=== PATIENT | female | born 1940 | race Caucasian/White ===

== ENCOUNTER 2017-03-19 23:34 | Observation (INO) ==
--- NOTE | 2017-03-20 00:16 | Emergency Department Note ---
Disposition Clinical Impression: Atrial fibrillation with RVR Chest pain Qualifiers: Chest pain type: unspecified Qualified Code(s): R07.9 - Chest pain, unspecified Disposition: Admitted As Inpatient Condition: Fair Time of Disposition: 03:00 Chest Pain HPI - General Chief Complaint: ED Chest Pain Stated Complaint: rt chest pain Time Seen by Provider: 03/19/17 23:41 Source: patient Limitations: no limitations Vital Signs Reviewed: Yes Nursing Notes Reviewed: Yes - History of Present Illness HPI Narrative: Patient is a 76-year-old female who presents to [facility] ED with a chief complaint of right-sided chest pain. States it started all of a sudden around 9:30 this evening while she was sitting watching TV. Denies any nausea, vomiting, diaphoresis. States it has been pretty constant since then. She does have some numbness and tingling into the right shoulder but states that is more chronic. She did take a full dose aspirin today as well as a Vicodin to see if she could help with the pain. States her heart rate has been high over 120 for the last 2 weeks. She does have a history of atrial fibrillation which she takes metoprolol 75 mg twice a day. States she was previously following with [facility] cardiology but then started seeing someone at [facility] who ended up retiring and now she is going to see someone at [facility] for her cardiology. Patient does have a history of CAD with 2 stents that were placed in 2008. Her last stress test was done in June 2015 at our facility which was negative for any acute ischemia. Pt complaint: chest pain Onset (ago): hour(s) Duration: constant Onset: during rest Pain Location: right chest Severity: moderate Severity scale (1-10): 5 Quality: aching Pain Radiation: RUE Improves with: nothing Worsens with: inspiration Associated symptoms: Denies: nausea, vomiting, diaphoresis, dyspnea, fever Treatments prior to arrival chest pain: aspirin - Related Data Home Medications Medication Instructions Recorded Confirmed Acetaminophen [Tylenol] 500 mg PO Q6HR PRN 06/19/15 03/20/17 Biotin 1,000 mcg PO QAM 06/19/15 03/20/17 Cholecalciferol (Vitamin D3) 50,000 unit PO QWEEK 06/19/15 03/20/17 [Vitamin D3] HYDROcodone/Acet 5/325 mg [[place] 0.5 tab PO Q6H PRN 06/19/15 03/20/17 5-325 mg] Levothyroxine [Synthroid] 25 mcg PO QAM 06/19/15 03/20/17 Multivitamin/Iron/Folic Acid 1 each PO QAM 06/19/15 03/20/17 [Centrum Complete Multivit Tab] Warfarin [Coumadin] 2.5 mg PO 4XW 06/19/15 03/20/17 Warfarin [Coumadin] 5 mg PO 4XW 06/19/15 03/20/17 Clopidogrel Bisulfate [Plavix] 75 mg PO DAILY 03/20/17 03/20/17 Dulcolax 1 each PO DAILY 03/20/17 03/20/17 Gas Relief 1 each PO PRN PRN 03/20/17 03/20/17 Losartan [Cozaar] 50 mg PO DAILY 03/20/17 03/20/17 Metoprolol [Lopressor] 75 mg PO BID 03/20/17 03/20/17 amLODIPine [Norvasc] 5 mg PO HS 03/20/17 03/20/17 Allergies Allergy/AdvReac Type Severity Reaction Status Date / Time Penicillins Allergy Rash Verified 06/19/15 12:32 rosuvastatin [From Crestor] Allergy See Verified 06/19/15 13:49 Comments Sulfa (Sulfonamide Allergy Rash Verified 06/19/15 12:32 Antibiotics) All systems ED: reviewed and negative except as stated. Chest Pain PMH - Past Medical History Medical history: Reports: arthritis, atrial fibrillation, coronary artery disease, CVA, hyperlipidemia, hypertension, renal disease, other Surgical history: Reports: angioplasty/stent, other Psychiatric history: Reports: no psych history - Social History Smoking Status: Never smoker Alcohol use: Reports: none Drug use: Reports: none Physical Exam - General Limitations: no limitations General appearance: alert, in no apparent distress - Head Head exam: atraumatic, normocephalic, normal inspection - Eye Eye exam: Present: normal appearance, EOMI - ENT ENT exam: normal exam, normal oropharynx, mucous membranes moist - Neck Neck exam: Present: normal inspection, full ROM, trachea midline - Chest Chest inspection: Present: normal inspection, symmetric chest wall rise - Respiratory Respiratory exam: Present: normal lung sounds bilaterally - Cardiovascular Cardiovascular exam: Present: tachycardia, irregular rhythm, normal heart sounds - Abdominal Exam Abdominal exam: Present: soft, Non-Tender. Absent: tenderness, distention, guarding, rebound, rigidity - Extremities Exam Extremities exam: Present: normal inspection, full ROM. Absent: tenderness, pedal edema - Back Exam Back exam: Present: normal inspection, full ROM. Absent: tenderness - Neurological Exam Neurological exam: Present: alert, oriented X3 - Psychiatric Psychiatric exam: Present: normal affect, normal mood - Skin Skin exam: Present: warm, dry, intact, normal color Course Course Narrative: Patient seen and examined. Right-sided chest pain, worse with deep breaths. Patient is in atrial fibrillation with RVR with a rate in the 120s. Cardiopulmonary workup initiated. - Reevaluation(s) Reevaluation #1: Patient had minimal improvement with 5 mg of metoprolol 3. Will admit for chest pain, rule out ACS as well as atrial fibrillation with RVR. I discussed with hospitalist Dr. Bledsoe who has accepted patient for admission. Time: 03:00 Vital Signs Temperature 98.1 F 03/19/17 23:42 Pulse Rate 126 03/19/17 23:42 Respiratory Rate 18 03/19/17 23:42 Blood Pressure 153/84 03/19/17 23:42 O2 Sat by Pulse Oximetry 98 03/19/17 23:42 Temperature 98.4 F 03/20/17 03:43 Pulse Rate 117 03/20/17 03:43 Respiratory Rate 18 03/20/17 03:43 Blood Pressure 137/88 03/20/17 03:43 O2 Sat by Pulse Oximetry 94 03/20/17 03:43 Oxygen Delivery Oxygen Delivery Room Air Chest Pain - Medical Records Medical records reviewed: Yes I reviewed the patient's medical records. - Lab Data Lab results reviewed: Yes I reviewed the patient's lab results. Result diagrams: 03/20/17 00:32 03/20/17 00:32 Lab Results 03/20/17 03/20/17 03/20/17 Range/Units 00:32 00:32 00:32 WBC 9.2 (4.3-11.1) K/mcL RBC 3.41 L (3.82-4.97) M/mcL Hgb 10.5 L (11.5-15.4) g/dL Hct 33.8 L (35.3-44.9) % MCV 99.1 (83.0-100.0) fL MCH 30.8 (28.0-33.3) pg MCHC 31.1 L (31.6-35.5) g/dL RDW 13.9 (11.5-14.5) % Plt Count 169 (140-400) K/mcL MPV 10.2 (9.4-12.4) fL Immature Gran % 0.5 (0-4) % Seg Neutrophils % 75.1 % Lymphocytes % 15.4 % Monocytes % 6.3 % Eosinophils % 2.4 % Basophils % 0.3 % Neutrophils # 6.9 (1.6-8.9) K/mcL Lymphocytes # 1.4 (0.6-4.6) K/mcL Monocytes # 0.6 (0.0-1.3) K/mcL Eosinophils # 0.2 (0.0-0.6) K/mcL Basophils # 0.0 (0.0-0.2) K/mcL PT 30.7 H (9.4-12.1) Seconds INR 2.8 APTT 32.3 (26.0-36.0) Seconds Sodium 139 (136-145) mEq/L Potassium 4.3 (3.5-4.5) mEq/L Chloride 105 (98-109) mEq/L Carbon Dioxide 24 (19-29) mEq/L BUN 22 H (7-20) mg/dL Creatinine 1.62 H (0.57-1.11) mg/dL Est GFR ( Amer) 37 L (> 60) Est GFR (Non-Af Amer) 31 L (> 60) BUN/Creatinine Ratio 14 (6-26) Glucose 137 H (70-99) mg/dL Calculated Osmolality 293 (280-300) Calcium 8.7 (8.6-10.8) mg/dL Magnesium 2.4 (1.6-2.6) mg/dL Troponin I (0-0.03) ng/mL TSH 4.344 (0.350-4.840) mcIU/mL 03/20/17 Range/Units 00:32 WBC (4.3-11.1) K/mcL RBC (3.82-4.97) M/mcL Hgb (11.5-15.4) g/dL Hct (35.3-44.9) % MCV (83.0-100.0) fL MCH (28.0-33.3) pg MCHC (31.6-35.5) g/dL RDW (11.5-14.5) % Plt Count (140-400) K/mcL MPV (9.4-12.4) fL Immature Gran % (0-4) % Seg Neutrophils % % Lymphocytes % % Monocytes % % Eosinophils % % Basophils % % Neutrophils # (1.6-8.9) K/mcL Lymphocytes # (0.6-4.6) K/mcL Monocytes # (0.0-1.3) K/mcL Eosinophils # (0.0-0.6) K/mcL Basophils # (0.0-0.2) K/mcL PT (9.4-12.1) Seconds INR APTT (26.0-36.0) Seconds Sodium (136-145) mEq/L Potassium (3.5-4.5) mEq/L Chloride (98-109) mEq/L Carbon Dioxide (19-29) mEq/L BUN (7-20) mg/dL Creatinine (0.57-1.11) mg/dL Est GFR ( Amer) (> 60) Est GFR (Non-Af Amer) (> 60) BUN/Creatinine Ratio (6-26) Glucose (70-99) mg/dL Calculated Osmolality (280-300) Calcium (8.6-10.8) mg/dL Magnesium (1.6-2.6) mg/dL Troponin I 0.02 (0-0.03) ng/mL TSH (0.350-4.840) mcIU/mL - Radiology Data Radiology results reviewed: Yes I reviewed the patient's radiology results. Chest X-Ray 03/19/17 23:42 IMPRESSION: Interstitial and nodular infiltrates in both lung bases. D/ / Sherman Woodruff MD / Sherman Woodruff MD Interpreting Provider: Sherman Woodruff MD - EKG Data EKG attestation: Yes I reviewed and interpreted this EKG. EKG results narrative: EKG done at 2339 shows atrial flutter with a rate of 127 beats per minute. No acute ST elevation or depression. Normal axis. Heart Score - Score History: Slightly Suspicious EKG: Non Specific repolarisation Disturbance Age: Greater than 65 Risk Factors: Equal/Greater than 3 risk factor or history of atherosclerotic disease Troponin: Less than normal limit HEART Score Total: 5
[2017-03-20 00:41] LABS: Basophils % 0.3 %; Eosinophils # 0.2 K/mcL (0.0-0.6); Eosinophils % 2.4 %; Hematocrit 33.8 % (35.3-44.9); Hemoglobin 10.5 g/dL (11.5-15.4); Immature Granulocytes % 0.5 % (0-4); Lymphocytes # 1.4 K/mcL (0.6-4.6); Lymphocytes % 15.4 %; Mean Corpuscular HGB Conc 31.1 g/dL (31.6-35.5); Mean Corpuscular Hemoglobin 30.8 pg (28.0-33.3); Mean Corpuscular Volume 99.1 fL (83.0-100.0); Mean Platelet Volume 10.2 fL (9.4-12.4); Monocytes # 0.6 K/mcL (0.0-1.3); Monocytes % 6.3 %; Neutrophils # 6.9 K/mcL (1.6-8.9); Platelet Count 169 K/mcL (140-400); Red Blood Count 3.41 M/mcL (3.82-4.97); Red Cell Distribution Width 13.9 % (11.5-14.5); Segmented Neutrophils % 75.1 %
[2017-03-20 00:46] LABS: INR 2.8; Prothrombin Time 30.7 Seconds (9.4-12.1)
[2017-03-20 00:48] LABS: Activated Partial Thrombo Time 32.3 Seconds (26.0-36.0)
[2017-03-20 00:53] LABS: Calcium 8.7 mg/dL (8.6-10.8); Potassium 4.3 mEq/L (3.5-4.5)
[2017-03-20] MEDS: *HR* Metoprolol 5 MG/5 ML VIAL IVP SCH ×3 (01:12→01:44)
[2017-03-20 01:25] LABS: Thyroid Stimulating Hormone 4.344 mcIU/mL (0.350-4.840)
--- NOTE | 2017-03-20 01:54 | Emergency Department Note ---
START Narrative - START START: I examined this patient and my medical decision-making was reviewed with the Resident Physician. I agree with the documented findings, disposition and treatment plan as described except to the extent set forth below. 76 year old female with HX of paroxsymal afib and states that she has had increased chest pain with shortness of breaht and diaphoesis and currently in atrial fibrillation with RVR. Radha has been admitted to medicine and given lpressor for ther afib thearpy, due to inability to take cardizem.
[2017-03-20 02:13] LABS: Magnesium 2.4 mg/dL (1.6-2.6)
[2017-03-20] MEDS ORDERED: Ondansetron 4 MG/2 ML VIAL IVP ONE (02:31)
[2017-03-20] MEDS ORDERED: *HR* Morphine 2 MG/ML SYRINGE IVP ONE (02:31)
[2017-03-20] MEDS ORDERED: Ondansetron 4 MG/2 ML VIAL IVP PRN (04:14)
[2017-03-20] MEDS ORDERED: Acetaminophen 325 MG TABLET PO PRN (04:14)
[2017-03-20] MEDS ORDERED: *HR* Promethazine 25 MG/ML VIAL IVP PRN (04:14)
[2017-03-20] MEDS ORDERED: Naloxone 0.4 MG/ML INJ IVP PRN (04:14)
[2017-03-20] MEDS ORDERED: *HR* Morphine 2 MG/ML SYRINGE IVP PRN (04:14)
[2017-03-20] MEDS: *HR* HYDROcodone/Acet 5/325 mg TABLET PO PRN ×3 (04:48→21:35)
--- NOTE | 2017-03-20 04:59 | Internal Med History&Physical ---
Date of Encounter: 03/20/17 Time of Encounter: 04:00 Assessment and Plan (1) Chest pain Current visit: Yes Status: Acute Will place the pt into Tele for observation Her Rt side chest pain seems to more like musculoskeletal / muscle strain However still need to r/o ACS.. will place her on hospital monitor check serial troponin..so far negative trop IV and PO analgesics PRN will get a 2 D Echo Qualifiers: Chest pain type: unspecified Qualified Code(s): R07.9 - Chest pain, unspecified (2) Atrial flutter Current visit: No Status: Acute Reviewed EKG showing tachycardia with atrial flutter waves must be triggered by pain She revcieved IV Lopressor in the ER, not much change will give her home PO Dose of Lopressor now, if no improvement will start her on Cardizem gtt also cont Coumadin for anticoagulation INR is therapeutic now will get 2 D Echo Qualifiers: Qualified Code(s): I48.3 - Typical atrial flutter (3) CAD (coronary artery disease) Current visit: No Status: Chronic Resumed all home meds Plavix, Statin and B abraham Qualifiers: Coronary Disease-Associated Artery/Lesion type: [place] artery [place] vs. transplanted heart: [place] heart Associated angina: without angina Qualified Code(s): I25.10 - Atherosclerotic heart disease of [place] coronary artery without angina pectoris (4) RSD upper limb Current visit: Yes Status: Chronic cont pain medication Qualifiers: Laterality: right Qualified Code(s): G90.511 - Complex regional pain syndrome I of right upper limb (5) HTN (hypertension) Current visit: No Status: Chronic stable with home meds Qualifiers: Hypertension type: essential hypertension Qualified Code(s): I10 - Essential (primary) hypertension (6) Hypothyroidism Current visit: No Status: Chronic resumed home med Qualifiers: Hypothyroidism type: acquired Qualified Code(s): E03.9 - Hypothyroidism, unspecified (7) Hyperlipidemia Current visit: No Status: Chronic resumed home med Qualifiers: Hyperlipidemia type: unspecified Qualified Code(s): E78.5 - Hyperlipidemia , unspecified Internal Medicine - H&P: HPI Chief complaint: Rt chest pain.. Palpitations Admitted From: Emergency Dept Plans for Post Hospital Care: Home History of present illness: Ms. Weston is a 76 year old female who presented to [facility] ED with c/o palpitations and Rt side chest pain. She stated it started all of a sudden around 9:30 last night while she was sitting watching TV. Denies any nausea, vomiting, diaphoresis. States it has been pretty constant since then. She does have some numbness and tingling into the right shoulder but states that is more chronic. She did take Vicodin which relieved her pain little bit. She also c/o of palpiations from last one week her HR in 100 t- 120' s. She used to be on Cardizem and Metoprolol for her paroxysmal A fib, apparently her straw boss from [facility] did d/c Cardizem and continued Metoprolol few months ago. Currently she takes metoprolol 75 mg twice a day. Here in the ER her EKG showing Atrial flutter and tachycardia. Patient does have a history of CAD with 2 stents that were placed in 2008. Her last stress test was done in June 2015 at our facility which was negative for any acute ischemia. Past Med Surg Social Fam HX - Past Medical History Medical history: arthritis, atrial fibrillation, coronary artery disease, CVA, hyperlipidemia, hypertension, renal disease, other Psychiatric history: no psych history - Past Surgical History Surgical History: angioplasty/stent, other - Social History Smoking Status: Never smoker Smokeless Tobacco Status: No Alcohol use: none Drug use: none - Family History Mother Living Status: Hx Family Cardiac Disorders: Yes Hx Family Respiratory Disorders: No Hx Family Cancer: No Hx Family GI Disorders: No Hx Family Endocrine Disorder: No Hx Family Neuromuscular Disorders: No Hx Family Neurologic Disorders: Yes Hx Family HEENT Disorders: No Hx Family Autoimmune Disorders: No Internal Medicine - H&P: Meds Acetaminophen [Tylenol] 500 mg PO Q6HR PRN 06/19/15 [History] Biotin 1,000 mcg PO QAM 06/19/15 [History] Cholecalciferol (Vitamin D3) [Vitamin D3] 50,000 unit PO QWEEK 06/19/15 [History ] HYDROcodone/Acet 5/325 mg [[place] 5-325 mg] 0.5 tab PO Q6H PRN 06/19/15 [History] Levothyroxine [Synthroid] 25 mcg PO QAM 06/19/15 [History] Multivitamin/Iron/Folic Acid [Centrum Complete Multivit Tab] 1 each PO QAM 06/19 [History] Warfarin [Coumadin] 2.5 mg PO 4XW 06/19/15 [History] Warfarin [Coumadin] 5 mg PO 4XW 06/19/15 [History] Clopidogrel Bisulfate [Plavix] 75 mg PO DAILY 03/20/17 [History] Dulcolax 1 each PO DAILY 03/20/17 [History] Gas Relief 1 each PO PRN PRN 03/20/17 [History] Losartan [Cozaar] 50 mg PO DAILY 03/20/17 [History] Metoprolol [Lopressor] 75 mg PO BID 03/20/17 [History] amLODIPine [Norvasc] 5 mg PO HS 03/20/17 [History] 3 Allergy/AdvReac Type Severity Reaction Status Date / Time Penicillins Allergy Rash Verified 06/19/15 12:32 rosuvastatin [From Crestor] Allergy See Verified 06/19/15 13:49 Comments Sulfa (Sulfonamide Allergy Rash Verified 06/19/15 12:32 Antibiotics) All Systems PM: A 10-system review of systems was performed and is negative for pertinent findings except as documented above in the HPI. Review of systems: All the systems are reviewed everything is benign except the systems and symptoms I mentioned in the history of present illness - Constitutional Vitals: Temp Pulse Resp BP Pulse Ox 98.4 F 117 18 137/88 94 03/20/17 03:43 03/20/17 03:43 03/20/17 03:43 03/20/17 03:43 03/20/17 03:43 General appearance: Present: mild distress (with pain), A&O X 3, answers questions appropriately - Head Head exam: Present: atraumatic, normal inspection - Respiratory Respiratory exam: Present: decreased breath sounds. Absent: chest wall tenderness, rales, respiratory distress, rhonchi, wheezes - Cardiovascular Cardiovascular exam: Present: irregular rhythm, +S1, +S2, tachycardia - GI/Abdominal GI/Abdominal exam: Present: normal bowel sounds, soft. Absent: distended, rebound, rigid, tenderness - Extremities Exam Extremities exam: Absent: calf tenderness, pedal edema, tenderness - Back Exam Back exam: Absent: CVA tenderness (L), CVA tenderness (R) - Neurological Exam Neurological exam: Present: alert, oriented X3 - Psychiatric Psychiatric exam: Present: normal affect, normal mood Internal Med - H&P Results - Labs CBC & Chem 7: 03/20/17 00:32 03/20/17 00:32
[2017-03-20] MEDS ORDERED: 0.9 % Sodium Chloride 1,000 ML IVC ONE (08:24)
[2017-03-20] MEDS: Multivit/Ca/Min/Fe/FA 1 TAB TABLET PO SCH (08:42)
[2017-03-20] MEDS: BIOTIN 1000MCG PO SCH (08:43)
--- NOTE | 2017-03-20 14:54 | Event Note ---
Date of Encounter: 03/20/17 Time of Encounter: 14:26 Neetu Weston is a 76 y/o female with PMH atrial flutter on couamdin, HTN, CAD and hypothyroidism who presented to [facility] on 03/20/2017 with complaints of chest pain. She was found to be an atrial fib with RVR, have worsening renal function and with possible new CHF. 1. CAD: per hx. presented with right-sided chest pain that radiated to back. 2015 stress test with gated EF greater than 70%, perfusion imaging negative for ischemia or infarct. Serial troponin negative, EKG with A. fib RVR. Still with intermittent right chest pain. Continue home Plavix, Coumadin, BB. Cardiology consulted 2. Atrial fib/flutter: Per history. Failed rhythm control with multaq the past. Per chart review, patient is supposed to be on diltiazem and metoprolol however only on metoprolol. Admission EKG with a flutter with rates in 120s to 130s. IV metoprolol given in ED and home BB restarted. Patient remains in A. fib with RVR with heart rates in 120s. Give Cardizem bolus and start Cardizem drip. Transfer to higher level of care. Cardiology consulted 3. Congestive heart failure: 06/2015 TTE with EF 55%, indeterminate diastolic dysfunction due to A. fib, moderately dilated left atrium. 03/20/[address] interstitial edema and trace pleural effusions compatible with CHF. Does not appear to be overtly overloaded. Not on Lasix at home. Give small dose IV Lasix as to not drop her blood pressure too low. Repeat echo, check BNP. Cardiology consulted 4. Acute on chronic kidney injury: Cr 1.6 which appears to be above baseline. Possibly cardiorenal syndrome with suspected congestive heart failure. Trial small dose IV Lasix. Holding home ARB. Received 1 L bolus; hold on further IV fluids until echo obtained. Monitor repeat CMP. Consult nephrology if needed. 5. Hypertension: per hx. BP controlled. Continue home amlodipine, BB. Holding home ARB with worsening renal function. Monitor BP closely while on Cardizem drip and with home BB. 6. Hypothyrodism: per hx. continue home levothyroxine. 7. DVT prophylaxis: couamdin 8. Lung nodules: Chest CT with known multiple subcentimeter pulmonary nodules throughout both lungs; most are unchanged from 2012 however there were at least 2 nodules increased in size on the right side. Will need continued CT surveillance in 12 months.
[2017-03-20] MEDS ORDERED: 0.9 % Sodium Chloride 500 ML IVC SCH (15:30)
[2017-03-20] MEDS ORDERED: Furosemide 20 MG/2 ML VIAL IVP ONE (16:12)
[2017-03-20] MEDS ORDERED: *HR* Warfarin 5 MG TABLET PO SCH (18:00)
[2017-03-20] MEDS ORDERED: Warfarin perPT PO PRN (18:00)
[2017-03-20] MEDS: amLODIPine 5 MG TABLET PO SCH (19:53)
[2017-03-21 04:02] LABS: Hematocrit 32.3 % (35.3-44.9); Hemoglobin 9.9 g/dL (11.5-15.4); INR 2.7; Mean Corpuscular HGB Conc 30.7 g/dL (31.6-35.5); Mean Corpuscular Hemoglobin 30.6 pg (28.0-33.3); Mean Corpuscular Volume 99.7 fL (83.0-100.0); Mean Platelet Volume 10.9 fL (9.4-12.4); Platelet Count 165 K/mcL (140-400); Prothrombin Time 29.5 Seconds (9.4-12.1); Red Blood Count 3.24 M/mcL (3.82-4.97)
[2017-03-21 04:22] LABS: Albumin 3.1 g/dL (3.5-5.0); Albumin/Globulin Ratio 0.9 (1.1-2.2); Bilirubin,Total 0.8 mg/dL (0.2-1.2); Calcium 8.1 mg/dL (8.6-10.8); Globulin 3.3 g/dL (2.4-3.5); Potassium 3.8 mEq/L (3.5-4.5); Total Protein 6.4 g/dL (6.0-8.3)
[2017-03-21] MEDS: *HR* HYDROcodone/Acet 5/325 mg TABLET PO PRN ×2 (07:03→20:08)
--- NOTE | 2017-03-21 09:05 | Cardiology Consult Note ---
Date of Encounter: 03/21/17 Time of Encounter: 09:03 Assessment and Plan (1) Atrial fibrillation with RVR Current Visit: Yes Status: Acute Patient has a history of A Fib. Per medical records she has failed amiodorone and multaq therapies. She is currently on metopolol and states that when she feels like she is having a rapid heart rate and in A fib she takes an extra dose and that usually has helped until recently she says it doesn't seem to slow it down as well. Currently anticoagulated with coumadin. INR currently therapeutic at 2.7. Patient has been started on cardizem with improvement of her heart rate. We will sign off of the case at this time. Recommend increasing patients metopolol to 100mg bid and discontinuing cardizem. Patient states that she has not tolerated cardizem very well in the past Continue with Coumadin for anticoagulation. Recommend the patient follow up with the cardiology [facility]. Echo from 03/21/17-LVEF 60%. Normal LV chamber size and function. Mild concentric left ventricular hypertrophy. Indeterminate diastolic function. Atypical septal motion of unclear etiology. Normal right ventricular size with mildly reduced function. Severely dilated right atrium. Mild tricuspid regurgitation. Mild pulmonary hypertension. Estimated RVSP is 40 mmHg. Estimated RA pressure is 10 mmHg. (2) CAD (coronary artery disease) Current Visit: Yes Status: Chronic Patient has a known history of CAD. Patient states that she had a heart cath in 2008 and had to have 2 stents placed. Patient states that she was having right sided chest pain after cleaning and moving boxes all day. Pain was in her arm and back as well. States it was worse with movement of her right arm. Denies any shortness of breath, diaphoresis or nausea. Troponins have been negative x 3. Most recent EKG showed A Fib with RVR. Currently on plavix. Nuclear stress test from 06/28/15- Pharmacologic stress ECG is non diagnostic for ischemia due to baseline non-specific ST and T changes. Gated EF >70%. Perfusion imaging was negative for ischemia or infarct. Qualifiers: Coronary Disease-Associated Artery/Lesion type: [place] artery [place] vs. transplanted heart: [place] heart Associated angina: without angina Qualified Code(s): I25.10 - Atherosclerotic heart disease of [place] coronary artery without angina pectoris (3) Chest pain Current Visit: Yes Status: Acute Patient has a known history of CAD. Patient states that she had a heart cath in 2008 and had to have 2 stents placed. Patient states that she was having right sided chest pain after cleaning and moving boxes all day. Pain was in her arm and back as well. States it was worse with movement of her right arm. Denies any shortness of breath, diaphoresis or nausea. Patient states that he pain has improved when she gets vicodin. States that he chest pain is currently a 3/10 and describes it as a soreness. Troponins have been negative x 3. Most recent EKG showed A Fib with RVR Qualifiers: Chest pain type: unspecified Qualified Code(s): R07.9 - Chest pain, unspecified (4) HTN (hypertension) Current Visit: No Status: Chronic Patient has a known history of HTN. Most recent BP was 109/75. She takes amlodipine, losartan and metopolol at home. This is currently being managed by the primary service. Qualifiers: Hypertension type: essential hypertension Qualified Code(s): I10 - Essential (primary) hypertension (5) Hypothyroidism Current Visit: No Status: Chronic Patient states that she developed hypothyroidism after being on amiodorone. She take synthroid at home for this. Currently being managed by the primary service. Qualifiers: Hypothyroidism type: acquired Qualified Code(s): E03.9 - Hypothyroidism, unspecified (6) Renal insufficiency Current Visit: No Status: Chronic Patient states that she has had kidney issues after being on amiodorone. She states that she see a neurologist as an outpatient. Most recent Cr 1.27. Baseline Cr appears to be around 1.3-1.5. Currently being managed by primary service. (7) DVT prophylaxis Current Visit: No Status: Acute Patient is currently being anticoagulated with Coumadin. Currently being managed by the primary service Discussion w patient/family: The assessment and plan as outlined above was discussed with the patient and/or family members who expressed understanding and agreement. All questions were answered. Thank you for involving us in the care of your patient. Please call with any questions. History of Present Illness Consult date: 03/20/17 Requesting physician: Erika Mcclain Consult reason: Chest pain/A Flutter Chief complaint: Chest pain History of present illness: Ms. Weston is a 76 year old female that presented to the emergency department with right side chest pain, arm pain and back pain. She states that the pain started while she was sitting in her recliner. She describes the pain as soreness and rates the pain as an 8/10. She states that she has chronic right arm and shoulder pain from a previous stroke. She states this pain was much worse than that. The patient does state that she felt like she had been bit by a spider and saw it on her hand so that day she decided to clean their bed room and move a bunch of boxes. She states that she was working on this a good portion of the day and then developed the pain. She states that the pain was worse when she would move her arm. She denies having any shortness of breath, diaphoresis. She states that she has never had pain like this before. She tried taking vicodin and aspirin at home with little relief. The patient states that she did have a heart catheterization done in 2008 and had 2 stents placed. She is unsure of the type of stents but thinks they may be bare metal. Patient states she has a history of atrial fibrillation and occasionally feels her heart going fast and will take extra lopressor for that. She said that usually helps but recently has not been helping as much. Past Med Surg Social Fam HX - Past Medical History Medical history: arthritis, atrial fibrillation, coronary artery disease, CVA, hyperlipidemia, hypertension, renal disease, other Psychiatric history: no psych history - Past Surgical History Surgical History: angioplasty/stent, other - Social History Smoking Status: Never smoker Smokeless Tobacco Status: No Alcohol use: none Drug use: none - Family History Mother Living Status: Hx Family Cardiac Disorders: Yes Hx Family Respiratory Disorders: No Hx Family Cancer: No Hx Family GI Disorders: No Hx Family Endocrine Disorder: No Hx Family Neuromuscular Disorders: No Hx Family Neurologic Disorders: Yes Hx Family HEENT Disorders: No Hx Family Autoimmune Disorders: No Medications and Allergies Acetaminophen [Tylenol] 500 mg PO Q6HR PRN 06/19/15 [History] HYDROcodone/Acet 5/325 mg [[place] 5-325 mg] 0.5 tab PO Q6H PRN 06/19/15 [History] Levothyroxine [Synthroid] 25 mcg PO QAM 06/19/15 [History] Multivitamin/Iron/Folic Acid [Centrum Complete Multivit Tab] 1 each PO QAM 06/19 [History] Warfarin [Coumadin] 2.5 mg PO MOTHSA 06/19/15 [History] Warfarin [Coumadin] 5 mg PO SUTUWEFR 06/19/15 [History] Biotin 1 mg PO DAILY 03/20/17 [History] Bisacodyl [Dulcolax] 5 mg PO QAM 03/20/17 [History] Clopidogrel Bisulfate [Plavix] 75 mg PO DAILY 03/20/17 [History] Ergocalciferol (VITAMIN D2) [Vitamin D2] 50,000 unit PO MO 03/20/17 [History] Losartan Potassium [Cozaar] 50 mg PO DAILY 03/20/17 [History] Metoprolol [Lopressor] 75 mg PO BID 03/20/17 [History] Olopatadine HCl [Pataday] 1 drop OP TID PRN 03/20/17 [History] Simethicone [Gas-X] 80 mg PO TID PRN 03/20/17 [History] amLODIPine [Norvasc] 5 mg PO HS 03/20/17 [History] 3 Allergy/AdvReac Type Severity Reaction Status Date / Time Penicillins Allergy Rash Verified 06/19/15 12:32 rosuvastatin [From Crestor] Allergy See Verified 06/19/15 13:49 Comments Sulfa (Sulfonamide Allergy Rash Verified 06/19/15 12:32 Antibiotics) All Systems Review: A 10-system review of systems was performed and is negative for pertinent findings except as documented above in the HPI. - Cardiovascular Cardiovascular: chest pain at rest, rapid heart rate, no dyspnea at rest, no dyspnea on exertion - Respiratory Respiratory: no dyspnea - Gastrointestinal Gastrointestinal: no abdominal pain - Genitourinary Genitourinary: no dysuria, no hematuria - Musculoskeletal Musculoskeletal: back pain - Integumentary Integumentary: other (Red bumps on left anterior lower extremity. Patient thinks may be from spider bit) Physical Examination Vital Signs, Last 4 Hours Temp Pulse Resp BP Pulse Ox 03/21/17 06:48 98.4 F 79 16 109/75 97 General: Conversant, No Apparent Distress HEENT: Atraumatic, Normocephaly, Mucus Membranes Moist Neck: No JVD, Normal carotid pulses Cardiac: Normal S1 and S2, No Murmur, Other (irregular with a normal rate) Lungs: Normal Breath Sounds, No Wheeze, Rales, Rhonchi Neuro: Alert and responsive, No focal deficits noted Abdomen: Soft, Non-Tender Skin: Other (Patient had red bumps on anterior left lower extremity) Musculoskeletal: Other (Patient has pain in right arm and is worse with movement.) Extremities: No Clubbing, No Cyanosis, Normal Pulses, Other (minimal swelling in bilateral lower extremities) Results 03/21/17 02:59 03/21/17 02:59 Lab Results 03/20/17 03/20/17 03/21/17 11:35 16:19 02:59 WBC Hgb Hct Plt Count INR 2.7 Sodium Potassium Chloride Carbon Dioxide BUN Creatinine Glucose Calcium Total Bilirubin AST ALT Alkaline Phosphatase Troponin I 0.01 B-Natriuretic Peptide 531 H 03/21/17 03/21/17 02:59 02:59 WBC 9.7 Hgb 9.9 L Hct 32.3 L Plt Count 165 INR Sodium 139 Potassium 3.8 Chloride 105 Carbon Dioxide 27 BUN 16 Creatinine 1.27 H Glucose 110 H Calcium 8.1 L Total Bilirubin 0.8 AST 33 ALT 57 H Alkaline Phosphatase 74 Troponin I B-Natriuretic Peptide - Imaging and Cardiology Chest Xray: report reviewed Echo: report reviewed Other Results: CT Chest report reviewed - EKG Interpretation EKG results cardiology: personally reviewed (Atrial fibrillation with rapid ventricular response) Consult Discharge Plan - Plan Referrals: Dereje Coughlin Jr, MD [Primary Care Provider] -
[2017-03-21] MEDS: Multivit/Ca/Min/Fe/FA 1 TAB TABLET PO SCH (11:48)
[2017-03-21] MEDS: BIOTIN 1000MCG PO SCH (11:51)
--- NOTE | 2017-03-21 14:39 | Discharge Summary ---
<Thuy Anna - Last Filed: 03/21/17 14:36> Date of Encounter: 03/21/17 Time of Encounter: 14:37 - Discharge Diagnosis (1) Chest pain Priority: Primary Status: Acute Qualifiers: Chest pain type: unspecified Qualified Code(s): R07.9 - Chest pain, unspecified (2) Atrial fibrillation with RVR Priority: Primary Status: Acute (3) Multiple lung nodules on CT Priority: Secondary Status: Acute (4) Hypothyroidism Priority: Secondary Status: Chronic Qualifiers: Hypothyroidism type: acquired Qualified Code(s): E03.9 - Hypothyroidism, unspecified (5) Rash Priority: Secondary Status: Acute (6) CAD (coronary artery disease) Priority: Secondary Status: Chronic Qualifiers: Coronary Disease-Associated Artery/Lesion type: [place] artery [place] vs. 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 Qualifiers: Laterality: right Qualified Code(s): G90.511 - Complex regional pain syndrome I of right upper limb (8) HTN (hypertension) Priority: Secondary Status: Chronic Qualifiers: Hypertension type: essential hypertension Qualified Code(s): I10 - Essential (primary) hypertension (9) Hyperlipidemia Priority: Secondary Status: Chronic Qualifiers: Hyperlipidemia type: unspecified Qualified Code(s): E78.5 - Hyperlipidemia , unspecified (10) Renal insufficiency Priority: Secondary Status: Chronic (11) DVT prophylaxis Priority: Secondary Status: Acute - Discharge Medications Prescriptions: Levothyroxine [Synthroid] 25 mcg PO QAM #45 tablet Metoprolol [Lopressor] 100 mg PO BID #60 tablet Home Medications: Acetaminophen [Tylenol] 500 mg PO Q6HR PRN 06/19/15 [History] HYDROcodone/Acet 5/325 mg [Barre 5-325 mg] 0.5 tab PO Q6H PRN 06/19/15 [History] Multivitamin/Iron/Folic Acid [Centrum Complete Multivit Tab] 1 each PO QAM 06/19 [History] Warfarin [Coumadin] 2.5 mg PO MOTHSA 06/19/15 [History] Warfarin [Coumadin] 5 mg PO SUTUWEFR 06/19/15 [History] Biotin 1 mg PO DAILY 03/20/17 [History] Bisacodyl [Dulcolax] 5 mg PO QAM 03/20/17 [History] Clopidogrel Bisulfate [Plavix] 75 mg PO DAILY 03/20/17 [History] Ergocalciferol (VITAMIN D2) [Vitamin D2] 50,000 unit PO MO 03/20/17 [History] Losartan Potassium [Cozaar] 50 mg PO DAILY 03/20/17 [History] Olopatadine HCl [Pataday] 1 drop OP TID PRN 03/20/17 [History] Simethicone [Gas-X] 80 mg PO TID PRN 03/20/17 [History] amLODIPine [Norvasc] 5 mg PO HS 03/20/17 [History] Levothyroxine [Synthroid] 25 mcg PO QAM #45 tablet 03/21/17 [Rx] Metoprolol [Lopressor] 100 mg PO BID #60 tablet 03/21/17 [Rx] Allergies/Adverse Reactions: 3 Allergy/AdvReac Type Severity Reaction Status Date / Time Penicillins Allergy Rash Verified 06/19/15 12:32 rosuvastatin [From Crestor] Allergy See Verified 06/19/15 13:49 Comments Sulfa (Sulfonamide Allergy Rash Verified 06/19/15 12:32 Antibiotics) Procedures/tests Complete & Pending: Procedures Performed prior 72 hours Category Date Time Status CT chest w/o contrast [CT chest wo con] [CT] Routine Cat Scan 03/20/17 11:00 Completed ECG 12 lead ECG [ECG] AM 0600 Y 03/20/17 06:00 Completed ECG 12 lead ECG [ECG] Stat Y 03/20/17 14:10 Completed EV echocardiogram Routine Y 03/21/17 16:12 Completed Date of admission: 03/20/17 02:00 Primary care physician: Dereje Coughlin Jr, MD Consults: 03/20/17 14:27 Consult to Cardiology [CONS] Routine Comment: Consulting Provider: Cardiology Grimes Reason for Consult: chest pain, a-flutter Call Completed: Yes Discharging clinician: Thuy Anna Anticipated date of discharge: 03/21/17 - Patient Status Disposition: Home, Self-Care Condition: Good Functional capacity at discharge: independent ambulation Overall status at discharge: patient is back to baseline - Discharge Instructions Instructions: Atrial Fibrillation (DC), Chest Wall Pain (GEN) Follow Up With: Dereje Coughlin Jr, MD [Primary Care Provider] - 03/26/17 11:00 am - Diet and Activity Diet: low fat, low cholesterol Interval History: States chest pain is improved and is more of a soreness. Heart is now rate controlled. Patient states that approximately 1 month ago she started taking 2 synthroid tablets daily due to fatigue. She felt better after 2-3 days of increased medicine. She states she has been in RVR with rate 110s-120s and up to 140s since March 07. She called her PCP March 14 and was told to only take 1 synthroid tablet daily to try and decrease her heart rate. She was doing a lot of cleaning in her house on March 17 & moving heavy items, vaccuuming, etc. On March 19 she felt chest pain that went to her back and down her right arm. She looked up symptoms of a hear attack in a female before coming to the hospital because she had several symptoms. Hospital course: Ms. Weston is a 76 year old female admitted with chest pain, most likely musculoskeletal in nature - but need to rule out ACS, and atrial flutter with RVR. She was started on a cardizem drip and her home lopressor was continued. ACS work-up was negative. Her rate was controlled with cardizem drip and continued after the drip was stopped. She also has a palpable erythematous rash that she thought was due to spider bite. She is being discharged with in increase in her metoprolol to 100 mg BID and her synthroid will be given 1 tablet and 2 tablet . Her rash was biopsied prior to discharge. - Time Spent with Patient Total time spent providing and/or coordinating discharge services: - Constitutional Vitals: Temp Pulse Resp BP Pulse Ox 98.3 F 64 16 105/51 95 03/21/17 10:56 03/21/17 10:56 03/21/17 10:56 03/21/17 10:56 03/21/17 10:56 General appearance: Present: A&O X 3, no acute distress, answers questions appropriately - Head Head exam: Present: atraumatic, normocephalic - Eye Eye exam: Present: PERRL, conjuntiva pink, sclera anicteric Pupils: Present: PERRL - Neck Neck exam general surgery: Present: supple, trachea midline - Respiratory Respiratory exam: Present: CTAB. Absent: accessory muscle use, rales, rhonchi, wheezes - Cardiovascular Cardiovascular exam: Present: irregular rhythm, +S1, +S2. Absent: diastolic murmur, gallop, rubs, systolic murmur - GI/Abdominal GI/Abdominal exam: Present: normal bowel sounds, soft, no peritoneal signs. Absent: distended, tenderness - Extremities Exam Extremities exam: Present: warm. Absent: calf tenderness, cyanotic, pedal edema - Neurological Exam Neurological exam: Present: CN II-XII intact, oriented X3, no focal deficits. Absent: pronater drift, facial droop, speech deficit - Skin Skin exam: Present: rash (line of spots erythematous maculopapular rash extending up left leg, also spots on anterior chest, and evidence or previous spots on arms) <Leonel Loya - Last Filed: 03/21/17 18:24> Date of Encounter: 03/21/17 - Discharge Diagnosis (1) Atrial fibrillation Priority: Primary Status: Acute Qualifiers: Atrial fibrillation type: paroxysmal Qualified Code(s): I48.0 - Paroxysmal atrial fibrillation (2) CAD (coronary artery disease) Status: Chronic Qualifiers: Coronary Disease-Associated Artery/Lesion type: [place] artery [place] vs. transplanted heart: [place] heart Associated angina: without angina Qualified Code(s): I25.10 - Atherosclerotic heart disease of [place] coronary artery without angina pectoris (3) Hypothyroidism Status: Chronic Qualifiers: Hypothyroidism type: acquired Qualified Code(s): E03.9 - Hypothyroidism, unspecified (4) HTN (hypertension) Status: Chronic Qualifiers: Hypertension type: essential hypertension Qualified Code(s): I10 - Essential (primary) hypertension (5) Hyperlipidemia Status: Chronic Qualifiers: Hyperlipidemia type: mixed hyperlipidemia Qualified Code(s): E78.2 - Mixed hyperlipidemia (6) Rash Status: Acute (7) Chronic kidney disease (CKD), stage III (moderate) Priority: Secondary Status: Chronic (8) Chronic diastolic (congestive) heart failure Priority: Secondary Status: Chronic Procedures/tests Complete & Pending: Procedures Performed prior 72 hours Category Date Time Status CT chest w/o contrast [CT chest wo con] [CT] Routine Cat Scan 03/20/17 11:00 Completed ECG 12 lead ECG [ECG] AM 0600 Y 03/20/17 06:00 Completed ECG 12 lead ECG [ECG] Stat Y 03/20/17 14:10 Completed EV echocardiogram Routine Y 03/21/17 16:12 Completed - Notes to Outpatient Provider Skin biopsy pending. Date of admission: 03/20/17 02:00 Primary care physician: Dereje Coughlin Jr, MD Consults: 03/20/17 14:27 Consult to Cardiology [CONS] Routine Comment: Consulting Provider: Cardiology Radha Reason for Consult: chest pain, a-flutter Call Completed: Yes Hospital course: Ms. Weston is a 76 year old female - Time Spent with Patient Total time spent providing and/or coordinating discharge services: 38min - Constitutional Vitals: Temp Pulse Resp BP Pulse Ox 98.4 F 84 16 110/62 93 03/21/17 15:08 03/21/17 15:08 03/21/17 15:08 03/21/17 15:08 03/21/17 15:08 - Attending Attestation I examined this patient and my medical decision-making was reviewed with the Resident Physician on 03/21/17. I agree with the documented findings, disposition and treatment plan as described except to the extent set forth below. Ms Weston has been admitted with rapid atrial fibrillation. She converted on Cardizem and remains in NSR. She was evaluated by cardiology and ready to go. She is afebrile and vitals stable. Her rash has been biopsied. Exam Alert. Comfortable Mucus membranes dry Heart reg No wheeze Discrete erythematous lesions anterior tibial area. Plan D/C home today Follow up with PCP.
[2017-03-21] MEDS ORDERED: Lidocaine 1% 20 ML MDV ID ONE (15:36)
--- NOTE | 2017-03-21 17:52 | Procedure Note ---
Date of procedure: 03/21/17 Pre-op diagnosis: SKin lesion Post-op diagnosis: same Procedure: Sign out performed. Patient prepped and draped in sterile fashion. 1% lidocaine used to numb surrounding area of mid LLE. A full thickness punch biopsy was obtained with a 4mm punch. Wound closed with one simple interrupted sutures of 4 -0 Ethilon. Specimen sent to pathology. Patient will follow up with PCP for suture removal. Anesthesia: local Surgeon: Maciel Coffman Gear Machine Operator General: Thuy Anna Estimated blood loss (cc): 2 IV fluids (cc): 0 Pathology: other (sent to path punch biopsy) Condition: stable Disposition: floor
[2017-03-21] MEDS ORDERED: *HR* Warfarin 5 MG TABLET PO ONE (18:00)
--- NOTE | 2017-03-21 18:26 | Event Note ---
Date of Encounter: 03/21/17 Time of Encounter: 18:25 Pt was being discharged and developed acute rapid atrial fibrillation. Discharge cancelled and Cardizem restarted.
--- NOTE | 2017-03-21 18:55 | Electrocardiograph Report ---
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
--- NOTE | 2017-03-21 18:56 | Electrocardiograph Report ---
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
--- NOTE | 2017-03-21 19:05 | Electrocardiograph Report ---
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
[2017-03-21] MEDS: amLODIPine 5 MG TABLET PO SCH (20:07)
[2017-03-22] MEDS: *HR* HYDROcodone/Acet 5/325 mg TABLET PO PRN ×2 (04:19→08:30)
[2017-03-22 04:56] LABS: Hematocrit 32.8 % (35.3-44.9); Hemoglobin 10.2 g/dL (11.5-15.4); Mean Corpuscular HGB Conc 31.1 g/dL (31.6-35.5); Mean Corpuscular Hemoglobin 31.1 pg (28.0-33.3); Mean Platelet Volume 10.1 fL (9.4-12.4); Platelet Count 149 K/mcL (140-400); Red Blood Count 3.28 M/mcL (3.82-4.97)
[2017-03-22 05:11] LABS: INR 2.3; Prothrombin Time 25.1 Seconds (9.4-12.1)
[2017-03-22 05:13] LABS: Albumin 2.8 g/dL (3.5-5.0); Albumin/Globulin Ratio 0.8 (1.1-2.2); Bilirubin,Total 0.6 mg/dL (0.2-1.2); Calcium 8.2 mg/dL (8.6-10.8); Globulin 3.6 g/dL (2.4-3.5); Total Protein 6.4 g/dL (6.0-8.3)
[2017-03-22] MEDS: Multivit/Ca/Min/Fe/FA 1 TAB TABLET PO SCH (08:02)
[2017-03-22] MEDS: BIOTIN 1000MCG PO SCH (08:03)
--- NOTE | 2017-03-22 10:11 | Cardiology Progress Note ---
Date of Encounter: 03/22/17 Time of Encounter: 09:30 Assessment and Plan (1) Atrial fibrillation with RVR Current Visit: Yes Status: Acute Per Cardiology: Patient has a history of A Fib. Per medical records she has failed amiodorone and multaq therapies. Echo from 03/21/17-LVEF 60%. Normal LV chamber size and function. Mild concentric left ventricular hypertrophy. Indeterminate diastolic function. Atypical septal motion of unclear etiology. Normal right ventricular size with mildly reduced function. Severely dilated right atrium. Mild tricuspid regurgitation. Mild pulmonary hypertension. Estimated RVSP is 40 mmHg. Estimated RA pressure is 10 mmHg. TSH and magnesium stable. Troponins negative 3. Currently on Lopressor 75 mg by mouth twice a day. Avg HR past 12 hrs 90, currently 70's to 80's on IV Cardizem gtt 2.5mg/hr. Previous cardiology recommendations reviewed and noted recs to increase Lopressor to 100mg by mouth twice a day. Will increase Lopressor to 100 mg by mouth twice a day. Will discontinue IV Cardizem drip. Discontinue Norvasc. Systolic blood pressures in the 110s. Continue monitor heart rate and blood pressure. Patient reports fatigue with Cardizem in the past. Titrate BB as needed and consider addition of CCB (Cardizem) if needed. Cardiology will s/o, re-consult PRN, f/u with her primary Telesales Consultant-- patient reports desire to follow-up with her pending cardiology appointment in [place] in a few weeks.. All questions answered. Discussed with Dr. Oliver. Currently anticoagulated with coumadin. INR currently therapeutic at 2.3. Discussion w patient/family: The assessment and plan as outlined above was discussed with the patient who expressed understanding and agreement. All questions were answered. Thank you for involving us in the care of your patient. Please call with any questions. Subjective Principal diagnosis: Afib RVR Interval history: Patient apparently discharged, however prior to leaving developed A. fib with RVR. Started back on Cardizem drip. Patient reevaluated this a.m. per request of primary service. Currently A. fib in the 70s to 80s IV Cardizem drip at 2.5 mg per hour. She denies any chest pain, short of breath, palpitations. Confirms now taking Coumadin and denies any active bleeding or blood loss. Objective Vital Signs, Last 4 Hours Temp Pulse Resp BP Pulse Ox 03/22/17 08:00 96 03/22/17 07:00 98.7 F 91 20 111/68 90 General: Conversant, No Apparent Distress Cardiac: No Murmur, Other (Irregularly irregular) Lungs: Normal Breath Sounds, No Wheeze, Rales, Rhonchi Neuro: Alert and responsive, No focal deficits noted Extremities: No Edema, Normal Pulses Results 03/22/17 04:50 03/22/17 04:50 Lab Results Laboratory Tests 03/20/17 03/20/17 03/20/17 00:32 00:32 05:43 INR Creatinine Est GFR (Non-Af Amer) Magnesium 2.4 Troponin I 0.02 0.01 B-Natriuretic Peptide TSH 4.344 03/20/17 03/20/17 03/22/17 11:35 16:19 04:50 INR 2.3 Creatinine Est GFR (Non-Af Amer) Magnesium Troponin I 0.01 B-Natriuretic Peptide 531 H TSH 03/22/17 04:50 INR Creatinine 1.30 H Est GFR (Non-Af Amer) 40 L Magnesium Troponin I B-Natriuretic Peptide TSH ITS Impressions Chest X-Ray 03/19/17 23:42 IMPRESSION: Interstitial and nodular infiltrates in both lung bases. D/ / Sherman Woodruff MD / Sherman Woodruff MD Interpreting Provider: Sherman Woodruff MD Chest CT 03/20/17 11:00 IMPRESSION: 1. Interstitial edema with trace pleural effusions, compatible with CHF. 2. Increased subpleural interstitial changes since 2011, most likely secondary to evolving pulmonary fibrosis. 3. Multiple subcentimeter pulmonary nodules throughout both lungs, the majority of which are unchanged from 2012 and therefore benign. There are at least 2 nodules which are increased in size in the right lung, measuring up to 5 mm in the right lower lobe. Continued CT surveillance is recommended, which can be obtained in 12 months. 4. Moderate coronary artery disease. RECOMMENDATIONS: Fleischner Society guidelines for follow-up and management of incidentally detected pulmonary nodules: Multiple Solid Nodules: Nodule size less than 6 mm In a low-risk patient, no routine follow-up. In a high-risk patient, optional CT at 12 months. Nodule size equals 6-8 mm In a low-risk patient, CT at 3-6 months, then consider CT at 18-24 months. In a high-risk patient, CT at 3-6 months, then CT at 18-24 months. Nodule size greater than 8 mm In a low-risk patient, CT at 3-6 months, then consider CT at 18-24 months. In a high-risk patient, CT at 3-6 months, then CT at 18-24 months. - Low risk patients include individuals with minimal or absent history of smoking and other known risk factors. - High risk patients include individuals with a history or smoking or known risk factors. Radiology 2017 http://pubs.rsna.org/doi/full/10.1148/radiol.[email or web address] D/ / 03/20/2017 11:55:24 Royal Johnston MD / Elsa Lynne Interpreting Provider: Royal Johnston MD Echocardiogram 03/21/17 16:12 Impressions: LVEF 60%. Normal LV chamber size and function. Mild concentric left ventricular hypertrophy. Indeterminate diastolic function. Atypical septal motion of unclear etiology. Normal right ventricular size with mildly reduced function. Severely dilated right atrium. Mild tricuspid regurgitation. Mild pulmonary hypertension. Estimated RVSP is 40 mmHg. Estimated RA pressure is 10 mmHg. Left Ventricular Wall Motion: Rest Echo Findings All wall segments showed normal motion. Findings: Study Quality * Technically adequate exam. ECG Findings * Atrial fibrillation. Left Ventricle * LVEF 60%. * Normal LV chamber size and function. * Mild concentric left ventricular hypertrophy. * Indeterminate diastolic function. * Atypical septal motion of unclear etiology. Right Ventricle * Normal right ventricular size with mildly reduced function. Left Atrium * Moderately dilated left atrium. Right Atrium * Severely dilated right atrium. Interatrial Septum * Interatrial septum not well evaluated. Aortic Valve * Trileaflet aortic valve with normal function. * No aortic regurgitation. * No aortic stenosis. Mitral Valve * Mild mitral annular calcification * Trace mitral regurgitation. * No mitral stenosis. Tricuspid Valve * Normal tricuspid valve structure. * Mild tricuspid regurgitation. * Mild pulmonary hypertension. * Estimated RVSP is 40 mmHg. * Estimated RA pressure is 10 mmHg. Pulmonic Valve * Normal pulmonic valve structure. * Mild pulmonic regurgitation. Aorta * Normally sized aortic root. Pericardium * The pericardium appears normal. IVC * The IVC is not dilated. * < 50% respiratory change. Pulmonary Artery * Normal visualized portions of the main pulmonary artery. - Imaging and Cardiology Echo: report reviewed - EKG Interpretation EKG results cardiology: other (Telemetry reviewed with Dr. Padgett past 12 hours 90, atrial fibrillation) Consult Discharge Plan - Plan Instructions: Atrial Fibrillation (DC), Chest Wall Pain (GEN) Referrals: Dereje Coughlin Jr, MD [Primary Care Provider] - 03/26/17 11:00 am Prescriptions: Levothyroxine [Synthroid] 25 mcg PO QAM #45 tablet Metoprolol [Lopressor] 100 mg PO BID #60 tablet
[2017-03-22 16:41] VITALS: BP 120/79
--- NOTE | 2017-03-22 17:09 | Internal Med Progress Note ---
Date of Encounter: 03/22/17 Time of Encounter: 09:00 - Assessment and plan (1) Atrial fibrillation Current Visit: Yes Status: Acute Qualifiers: Atrial fibrillation type: paroxysmal Qualified Code(s): I48.0 - Paroxysmal atrial fibrillation (2) CAD (coronary artery disease) Current Visit: Yes Status: Chronic Qualifiers: Coronary Disease-Associated Artery/Lesion type: [place] artery [place] vs. transplanted heart: [place] heart Associated angina: without angina Qualified Code(s): I25.10 - Atherosclerotic heart disease of [place] coronary artery without angina pectoris (3) Hypothyroidism Current Visit: No Status: Chronic Qualifiers: Hypothyroidism type: acquired Qualified Code(s): E03.9 - Hypothyroidism, unspecified (4) HTN (hypertension) Current Visit: No Status: Chronic Qualifiers: Hypertension type: essential hypertension Qualified Code(s): I10 - Essential (primary) hypertension (5) Hyperlipidemia Current Visit: No Status: Chronic Qualifiers: Hyperlipidemia type: mixed hyperlipidemia Qualified Code(s): E78.2 - Mixed hyperlipidemia (6) Rash Current Visit: Yes Status: Acute (7) Chronic kidney disease (CKD), stage III (moderate) Current Visit: Yes Status: Chronic (8) Chronic diastolic (congestive) heart failure Current Visit: Yes Status: Chronic - Subjective Interval history: Ms Weston is currently in observation for rapid a fib. She converted initially but while getting dressed to discharge yesterday she went back into rapid a fib. Currently she is in a fib but rate controlled. She is now off cardizem drip. - Constitutional Vitals: Temp Pulse Resp BP Pulse Ox 98.7 F 91 18 120/79 98 03/22/17 16:00 03/22/17 16:00 03/22/17 16:00 03/22/17 16:00 03/22/17 16:00 General appearance: Present: A&O X 3, answers questions appropriately - Head Head exam: Present: normocephalic - Eye Eye exam: Present: EOMI, conjuntiva pink - ENT ENT exam: Present: mucous membranes moist - Respiratory Respiratory exam: Present: CTAB. Absent: rhonchi, wheezes - Cardiovascular Cardiovascular exam: Present: irregular rhythm. Absent: tachycardia - GI/Abdominal GI/Abdominal exam: Present: soft. Absent: tenderness - Extremities Exam Extremities exam: Present: warm. Absent: tenderness Additional comments: Rash on front of L leg still present but receding. - Neurological Exam Neurological exam: Present: alert, oriented X3 - Skin Skin exam: Present: rash, warm Internal Medicine: Result - Labs CBC & Chem 7: 03/22/17 04:50 03/22/17 04:50 Labs: Short CBC 03/22/17 Range/Units 04:50 WBC 8.1 (4.3-11.1) K/mcL Hgb 10.2 L (11.5-15.4) g/dL Hct 32.8 L (35.3-44.9) % Plt Count 149 (140-400) K/mcL BMP 03/22/17 04:50 Sodium 140 Potassium 4.0 Chloride 107 Carbon Dioxide 25 BUN 17 Creatinine 1.30 H Glucose 109 H Calcium 8.2 L Liver Function 03/22/17 Range/Units 04:50 Total Bilirubin 0.6 (0.2-1.2) mg/dL AST 26 (5-34) Units/L ALT 48 (0-55) Units/L Alkaline Phosphatase 69 (38-126) Units/L Albumin 2.8 L (3.5-5.0) g/dL - ABG Interpretation ABG results: PT/INR, D-dimer PT 25.1 Seconds (9.4-12.1) H 03/22/17 04:50 Consult Discharge Plan - Plan Instructions: Hydrocodone/Acetaminophen (By mouth), Atrial Fibrillation (DC), Chest Wall Pain (GEN) Referrals: Dereje Coughlin Jr, MD [Primary Care Provider] - 03/26/17 11:00 am Prescriptions: HYDROcodone/Acet 5/325 mg [Colo 5-325 mg] 1 tab PO Q6H PRN #30 tab PRN Reason: Pain Levothyroxine [Synthroid] 25 mcg PO QAM #45 tablet Metoprolol [Lopressor] 100 mg PO BID #60 tablet
[2017-03-22] MEDS ORDERED: *HR* Warfarin 2.5 MG TABLET PO ONE (18:00)
[2017-03-22] MEDS ORDERED: *HR* Warfarin 2.5 MG TABLET PO SCH (18:00)
[2017-03-22] MEDS ORDERED: Metoprolol 100 MG TABLET PO SCH (21:00)
--- NOTE | 2017-03-24 18:25 | Electrocardiograph Report ---
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
== END 2017-03-22 17:30 | disposition home or self-care (01) ==
LOC: 3BNU 23:34 → EMEROO 23:34 → SUATTDRO 03-20 02:00 → 3BNU 03-20 02:46 → 2NENU 03-20 19:12
PROVIDERS: ADMIT Pediatrics; ATTEND Internal Medicine

== ENCOUNTER 2018-07-04 15:16 | Inpatient (IN) ==
--- NOTE | 2018-07-04 15:28 | Emergency Department Note ---
Disposition Clinical Impression: NSTEMI (non-ST elevated myocardial infarction), Pulmonary nodule, Pancreatic cyst Back pain Qualifiers: Back pain location: thoracic back pain Chronicity: acute Back pain laterality: midline Qualified Code(s): M54.6 - Pain in thoracic spine Disposition: Admitted As Inpatient Condition: Fair Referrals: Dereje Coughlin Jr, MD [Primary Care Provider] - Forms: ED Satisfaction Letter General Adult HPI - General Chief complaint: ED Chest Pain Stated complaint: Chest Pain Time Seen by Provider: 07/04/18 15:20 Source: patient Mode of arrival: private vehicle Limitations: no limitations Nursing Notes Reviewed: Yes Vital Signs Reviewed: Yes - History of Present Illness HPI Narrative: Patient is a 78-year-old female with past medical history including hypertension, atrial fibrillation on warfarin, coronary artery disease with 2 stent placement chronic low back pain, presenting with chief complaint of sharp back pain in between her shoulder blades that started suddenly an hour and a half prior to arrival. Patient states she has never had pain like this before. Denies any trauma. States this morning, she was feeling generally weak and her blood pressure was low with systolic in the 80s. She states she took "500 mg of aspirin." She states an hour and a half ago, she suddenly developed sharp back pain in between her shoulder blades. She took a Bradford. She states nothing makes it better. Pain is associated with mild shortness of breath and nausea. She denies any chest pain, cough, fevers, abdominal pain, history of aneurysms or dissections. Patient states her back pain is similar to when she required 2 stent placements. Pain Scale: 6 - Related Data Home Medications Medication Instructions Recorded Confirmed RX: Acetaminophen [Tylenol] 500 mg PO Q6HR PRN 06/19/15 03/20/17 RX: HYDROcodone/Acet 5/325 mg 0.5 tab PO Q6H PRN 06/19/15 03/20/17 [Bradford 5-325 mg] RX: Multivitamin/Iron/Folic Acid 1 each PO QAM 06/19/15 03/20/17 [Centrum Complete Multivit Tab] RX: Warfarin [Coumadin] 2.5 mg PO MOTHSA 06/19/15 03/20/17 RX: Warfarin [Coumadin] 5 mg PO SUTUWEFR 06/19/15 03/20/17 RX: Biotin 1 mg PO DAILY 03/20/17 03/20/17 RX: Bisacodyl [Dulcolax] 5 mg PO QAM 03/20/17 03/20/17 RX: Clopidogrel Bisulfate [Plavix] 75 mg PO DAILY 03/20/17 03/20/17 RX: Ergocalciferol (VITAMIN D2) 50,000 unit PO MO 03/20/17 03/20/17 [Vitamin D2] RX: Losartan Potassium [Cozaar] 50 mg PO DAILY 03/20/17 03/20/17 RX: Olopatadine HCl [Pataday] 1 drop OP TID PRN 03/20/17 03/20/17 RX: Simethicone [Gas-X] 80 mg PO TID PRN 03/20/17 03/20/17 RX: amLODIPine [Norvasc] 5 mg PO HS 03/20/17 03/20/17 Previous Rx's Medication Instructions Recorded RX: Levothyroxine [Synthroid] 25 mcg PO QAM #45 tablet 03/21/17 RX: Metoprolol [Lopressor] 100 mg PO BID #60 tablet 03/21/17 HYDROcodone/Acet 5/325 mg [Bradford 1 tab PO Q6H PRN #30 tab 03/22/17 5-325 mg] Allergies Allergy/AdvReac Type Severity Reaction Status Date / Time Penicillins Allergy Rash Verified 06/19/15 12:32 rosuvastatin [From Crestor] Allergy See Verified 06/19/15 13:49 Comments Sulfa (Sulfonamide Allergy Rash Verified 06/19/15 12:32 Antibiotics) morphine AdvReac Mild Nausea and Verified 03/22/17 07:15 Vomiting All systems ED: reviewed and negative except as stated. Review of Systems: As Per HPI Constitutional: Denies: fever, chills ENT ED: Denies: congestion Cardiovascular: Denies: chest pain, palpitations, syncope Respiratory: Reports: dyspnea. Denies: cough Gastrointestinal: Denies: abdominal pain, nausea, vomiting, diarrhea Genitourinary: Denies: dysuria Musculoskeletal: Reports: back pain Integumentary: Denies: rash Neurological: Reports: weakness. Denies: headache, paresthesias Past Medical History - Past Medical History Attestation: Yes The following information was validated with the patient. Source: patient Medical history: Reports: arthritis, atrial fibrillation, coronary artery disease, CVA, hyperlipidemia, hypertension, renal disease, other Surgical history: Reports: angioplasty/stent, other Psychiatric history: Reports: no psych history - Social History Smoking Status: Never smoker Smokeless Tobacco Status: No Alcohol use: Reports: none Drug use: Reports: none Physical Exam - General Limitations: no limitations General appearance: alert, in no apparent distress - Head Head exam: atraumatic, normocephalic, normal inspection - Eye Eye exam: Present: normal appearance, EOMI - ENT ENT exam: normal exam, normal oropharynx, mucous membranes moist - Neck Neck exam: Present: normal inspection, full ROM, trachea midline - Chest Chest inspection: Present: normal inspection, symmetric chest wall rise - Respiratory Respiratory exam: Present: normal lung sounds bilaterally. Absent: respiratory distress, wheezes - Cardiovascular Cardiovascular exam: Present: regular rate, normal rhythm, normal heart sounds, other (Bilateral radial pulses are equal) - Abdominal Exam Abdominal exam: Present: soft, Non-Tender. Absent: tenderness, distention, guarding, rebound, rigidity, pulsatile mass - Extremities Exam Extremities exam: Present: normal inspection, full ROM, normal capillary refill. Absent: tenderness, pedal edema - Neurological Exam Neurological exam: Present: alert, oriented X3 - Psychiatric Psychiatric exam: Present: normal affect, normal mood - Skin Skin exam: Present: warm, dry, intact, normal color. Absent: diaphoresis, pallor Course Vital Signs Temperature 98 F 07/04/18 15:18 Pulse Rate 74 07/04/18 15:18 Respiratory Rate 07/04/18 15:18 Blood Pressure 166/107 07/04/18 15:18 O2 Sat by Pulse Oximetry 98 07/04/18 15:18 Temperature 98 F 07/04/18 15:18 Pulse Rate 71 07/04/18 16:12 Respiratory Rate 07/04/18 15:18 Blood Pressure 110/64 07/04/18 16:12 O2 Sat by Pulse Oximetry 98 07/04/18 15:18 Oxygen Delivery Oxygen Delivery Room Air Medical Decision Making - [facility] Narrative Medical decision making narrative: Patient is presenting with sudden onset back pain in between her shoulder blades. Her blood pressures are elevated here with diastolic 108. She denies any chest pain. She does have some mild shortness of breath. She took a Bradford and aspirin prior to coming here. No abdominal pulsatile mass. No abdominal tenderness. However cannot rule out aortic dissection so we will obtain CT a chest and abdomen and pelvis. We will also evaluate for acute coronary syndrome as the patient had similar back pain to when she had 2 stents placed in the past. We will also obtain CBC, BMP, troponin. Nitro trial. She will require admission. Heart score 5. 16:20 Labs reviewed. Troponin is 0.04. Troponin has not been elevated in the past. NSTEMI. Patient is currently anticoagulated on warfarin with therapeutic INR. She also took aspirin prior to arrival. Chest x-ray with patchy airspace disease at the left base which may represent atelectasis versus evolving infiltrate. CTA with no acute process. No evidence of dissection or aneurysm. No stenosis is noted. There is however incidental findings. There is mild circumferential wall thickening of the distal descending colon. Patient denies abdominal pain, diarrhea, bloody stool. She is also afebrile. Low clinical suspicion for infectious or inflammatory colitis at this time. There is no evidence of pneumatosis, perforation or free air. Repeat abdominal examination with a nontender, nondistended abdomen without peritoneal signs. She also has chronic interstitial pulmonary fibrosis with stable scattered noncalcified nodules in bilateral lungs with the largest measuring 6 mm. These are unchanged since March 2017 and recommendations for follow-up chest CT in 9 months. There is also a nonspecific 1.8 cm cystic lesion in the pancreatic head that is likely a benign cyst or IPM and. Recommendations for follow-up pancreatic protocol MRI. Patient was made aware of these findings. We will also discuss these findings with the hospitalist. Patient states back pain improved after one nitroglycerin. Blood pressures are also improved. She is medically stable we will admit the patient for further evaluation. We will give her IV fluids. 17:00 Discussed with hospitalist, Dr. Avilez, who accepts admission. Patient remains medically stable at this time. - Medical Records Medical records reviewed: Yes I reviewed the patient's medical records. - Lab Data Lab results reviewed: Yes I reviewed the patient's lab results. Result diagrams: 07/04/18 15:23 07/04/18 15:23 Lab Results 07/04/18 07/04/18 07/04/18 Range/Units 15:23 15:23 15:25 WBC 6.8 (4.3-11.1) K/mcL RBC 4.38 (3.82-4.97) M/mcL Hgb 13.9 (11.5-15.4) g/dL Hct 43.9 (35.3-44.9) % MCV 100.2 H (83.0-100.0) fL MCH 31.7 (28.0-33.3) pg MCHC 31.7 (31.6-35.5) g/dL RDW 13.8 (11.5-14.5) % Plt Count 239 (140-400) K/mcL MPV 10.3 (9.4-12.4) fL Immature Gran % 0.4 (0-4) % Seg Neutrophils % 71.7 % Lymphocytes % 19.9 % Monocytes % 7.2 % Eosinophils % 0.4 % Basophils % 0.4 % Neutrophils # 4.9 (1.6-8.9) K/mcL Lymphocytes # 1.4 (0.6-4.6) K/mcL Monocytes # 0.5 (0.0-1.3) K/mcL Eosinophils # 0.0 (0.0-0.6) K/mcL Basophils # 0.0 (0.0-0.2) K/mcL PT 25.6 H (9.4-12.1) Seconds INR 2.3 APTT 34.6 (26.0-36.0) Seconds Sodium 139 (136-145) mEq/L Potassium 3.7 (3.5-5.1) mEq/L Chloride 103 (98-107) mEq/L Carbon Dioxide 25 (23-29) mEq/L BUN 19 (8-23) mg/dL Creatinine 1.09 (0.60-1.20) mg/dL Est GFR ( Amer) 59 L (> 60) Est GFR (Non-Af Amer) 48 L (> 60) BUN/Creatinine Ratio 17 (6-26) Glucose 134 H (70-105) mg/dL Calculated Osmolality 292 (280-300) Calcium 9.5 (8.6-10.3) mg/dL Troponin I 0.04 H* (< 0.04) ng/mL - Radiology Data Radiology results reviewed: Yes I reviewed the patient's radiology results. CT Dissection 07/04/18 15:23 IMPRESSION: 1. No acute process within the chest or abdomen. Namely, there is atherosclerotic disease of the thoracic and abdominal aorta without evidence of stenosis, aneurysm, or dissection. 2. Nonspecific mild circumferential wall thickening of the distal descending colon as well as the rectosigmoid colon, may suggest a focal infectious or inflammatory colitis in the right clinical setting. Ischemic colitis is considered less likely. There is no evidence of pneumatosis, perforation, or free air. 3. Stable chronic interstitial pulmonary fibrosis. 4. Stable scattered noncalcified nodules within both lungs, the largest measuring 6 mm within the right middle lobe. These are unchanged from 03/2017. Suggest a final follow-up chest CT in 9 months to document 2-year stability of these nodules, as advised below. 5. Nonspecific 1.8 cm cystic lesion within the pancreatic head, likely either a benign cyst or IPMN. Consider further characterization with a follow-up pancreatic protocol MRI. 6. Colonic diverticulosis. RECOMMENDATIONS: Fleischner Society guidelines for follow-up and management of incidentally detected pulmonary nodules: Multiple Solid Nodules: Nodule size equals 6-8 mm In a low-risk patient, CT at 3-6 months, then consider CT at 18-24 months. In a high-risk patient, CT at 3-6 months, then CT at 18-24 months. Radiology 2017 http://pubs.rsna.org/doi/full/[email or web address] D/ / 07/04/2018 16:27:04 Royal Matias MD / lilia Interpreting Provider: Royal Matias MD Chest X-Ray 07/04/18 15:23 IMPRESSION: Patchy airspace disease at the left base may represent atelectasis or evolving infiltrate. PA and lateral chest would be helpful for further evaluation. D/ / 07/04/2018 15:58:48 Jaiden Jolly MD / lilia Interpreting Provider: Jaiden Jolly MD - EKG Data EKG #1 EKG attestation: Yes I reviewed and interpreted this EKG. EKG results narrative: EKG obtained today at 1520 shows sinus rhythm with heart rate 67. DC interval 2:30. QRS duration 97. QTC 422. She is a prolonged DC interval. No evidence of ST elevation or depression. Compared to prior EKG obtained on 03/21/2017 which showed atrial fibrillation ablation with RVR at that time. Attestation Statement - Attestation Attestation: Resident Attestation: I examined this patient and my medical decision making was reviewed with the Resident Physician. I agree with the documented findings, disposition and treatment plan as described except to the extent set forth below. We independently had [id number] contact with the patient. Patient presented for evaluation of back pain. Patient's back pain is similar to previous [place]. Describes pain directly between her shoulder blades. Patient will undergo further cardiac evaluation as well as CTA to rule out dissection Mild distress secondary to pain, regular rate and rhythm, clear to auscultation bilaterally, abdomen soft nontender palpation without guarding or rebound, muscu loskeletal exam of the back does not show any pinpoint tenderness or exacerbation of symptoms. Patient with elevated troponin. Patient takes Coumadin. INR therapeutic. Patient has been prior to arrival. Patient has no significant EKG changes. Patient will be admitted for further evaluation. Heart Score - Score History: Moderately Suspicious EKG: Normal Age: Greater than 65 Risk Factors: Equal/Greater than 3 risk factor or history of atherosclerotic disease Troponin: Less than normal limit HEART Score Total: 5
[2018-07-04] MEDS ORDERED: Nitroglycerin 0.4 MG TAB.SUBL SL PRN (15:32)
[2018-07-04 15:40] LABS: Basophils % 0.4 %; Eosinophils % 0.4 %; Hematocrit 43.9 % (35.3-44.9); Hemoglobin 13.9 g/dL (11.5-15.4); Immature Granulocytes % 0.4 % (0-4); Lymphocytes # 1.4 K/mcL (0.6-4.6); Lymphocytes % 19.9 %; Mean Corpuscular HGB Conc 31.7 g/dL (31.6-35.5); Mean Corpuscular Hemoglobin 31.7 pg (28.0-33.3); Mean Corpuscular Volume 100.2 fL (83.0-100.0); Mean Platelet Volume 10.3 fL (9.4-12.4); Monocytes # 0.5 K/mcL (0.0-1.3); Monocytes % 7.2 %; Neutrophils # 4.9 K/mcL (1.6-8.9); Platelet Count 239 K/mcL (140-400); Red Blood Count 4.38 M/mcL (3.82-4.97); Red Cell Distribution Width 13.8 % (11.5-14.5); Segmented Neutrophils % 71.7 %
[2018-07-04 15:47] LABS: INR 2.3; Prothrombin Time 25.6 Seconds (9.4-12.1)
[2018-07-04 15:49] LABS: Activated Partial Thrombo Time 34.6 Seconds (26.0-36.0)
[2018-07-04] MEDS ORDERED: Isovue-370 500 ML BOTTLE IVP ONE (15:56)
[2018-07-04 15:59] LABS: Calcium 9.5 mg/dL (8.6-10.3); Potassium 3.7 mEq/L (3.5-5.1)
[2018-07-04 16:04] LABS: Troponin I 0.04 ng/mL (< 0.04)
[2018-07-04] MEDS ORDERED: 0.9 % Sodium Chloride 1,000 ML IVC ONE (16:20)
[2018-07-04] MEDS ORDERED: Naloxone 0.4 MG/ML INJ IVP PRN (18:00)
[2018-07-04] MEDS ORDERED: 0.9 % Sodium Chloride 1,000 ML IVC SCH (18:00)
--- NOTE | 2018-07-04 18:04 | Internal Med History&Physical ---
Date of Encounter: 07/04/18 Time of Encounter: 18:04 Internal Medicine - H&P: HPI Chief complaint: cp Admitted From: Emergency Dept Plans for Post Hospital Care: Home History of present illness: Ms. Weston is a 78 year old female past medical history of hypertension atrial fib on warfarin coronary disease with 2 simple placement chronic low back pain presented with complaints of sharp back pain that started suddenly and hour and a half prior to presentation. She states that she checks her heart rate and blood pressure 3 times a day and that this morning her heart rate was 129 her blood pressure was in the 80s. She also states that she has been feeling weak for the past week and that her heart rate was elevated yesterday as well at 121. She denied any trauma. She states she took "500 mg" aspirin and a [place] which it did not improve pain. She denied any shortness of breath but she was slightly nauseated. Denied any fevers abdominal pain cough. She states that the pain is similar to when she had her stents placed in 2008. In the ER she did have a CTA which did not show any dissection EKG with no ST-T wave abnormalities first troponin slightly elevated at 0.04. she has been admitted for further work up and evaluation, currently does not have any chest pain. She is hemodynamically stable this time. Past Med Surg Social Fam HX - Past Medical History Medical history: arthritis, atrial fibrillation, coronary artery disease, CVA, hyperlipidemia, hypertension, renal disease, other Additional medical history: occassional hypotension. Psychiatric history: no psych history - Past Surgical History Surgical History: angioplasty/stent, other Additional surgical history: Back surgery x 2. - Social History Smoking Status: Never smoker Smokeless Tobacco Status: No Alcohol use: none Drug use: none - Family History Mother Living Status: Hx Family Cardiac Disorders: Yes Hx Family Respiratory Disorders: No Hx Family Cancer: No Hx Family GI Disorders: No Hx Family Endocrine Disorder: No Hx Family Neuromuscular Disorders: No Hx Family Neurologic Disorders: Yes Hx Family HEENT Disorders: No Hx Family Autoimmune Disorders: No Internal Medicine - H&P: Meds Acetaminophen [Tylenol] 500 mg PO Q6HR PRN 06/19/15 [History] HYDROcodone/Acet 5/325 mg [[place] 5-325 mg] 0.5 tab PO Q6H PRN 06/19/15 [History] Multivitamin/Iron/Folic Acid [Centrum Complete Multivit Tab] 1 each PO QAM 06/19/15 [History] Biotin 1 mg PO DAILY 03/20/17 [History] Bisacodyl [Dulcolax] 5 mg PO QAM 03/20/17 [History] Ergocalciferol (VITAMIN D2) [Vitamin D2] 50,000 unit PO MO 03/20/17 [History] Olopatadine HCl [Pataday] 1 drop OP TID PRN 03/20/17 [History] Simethicone [Gas-X] 80 mg PO TID PRN 03/20/17 [History] Levothyroxine [Synthroid] 25 mcg PO QAM #45 tablet 03/21/17 [Rx] Diltiazem HCl [Diltiazem ER] 120 mg PO DAILY 07/04/18 [History] Metoprolol Tartrate [Lopressor] 25 mg PO BID 07/04/18 [History] Warfarin [Coumadin] 3 mg PO DAILY 07/04/18 [History] amLODIPine [Norvasc] 2.5 mg PO DAILY 07/04/18 [History] Allergy/AdvReac Type Severity Reaction Status Date / Time Penicillins Allergy Rash Verified 06/19/15 12:32 rosuvastatin [From Crestor] Allergy See Verified 06/19/15 13:49 Comments Sulfa (Sulfonamide Allergy Rash Verified 06/19/15 12:32 Antibiotics) morphine AdvReac Mild Nausea and Verified 03/22/17 07:15 Vomiting All Systems PM: A 10-system review of systems was performed and is negative for pertinent findings except as documented above in the HPI. - Constitutional Constitutional: weakness, no chills, no fever(s), no night sweats - EENT Eyes: no change in vision, no discharge, no pain, no photophobia Nose, mouth and throat: no dysphagia, no nasal discharge, no neck pain, no sore throat - Cardiovascular Cardiovascular ROS IM: no chest pain, no diaphoresis, no dyspnea, no lightheadedness, no palpitations, no syncope - Respiratory Respiratory: no cough, no dyspnea, no wheezing, no excessive phlegm production - Gastrointestinal Gastrointestinal: no abdominal pain, no diarrhea, no hematemesis, no hematochezia, no melena, no nausea, no vomiting - Genitourinary Genitourinary: no change in urinary stream, no dysuria, no flank pain, no hematuria - Musculoskeletal Musculoskeletal ROS IM: no numbness, no tingling - Integumentary Integumentary IM: no rash, no unusual bruising - Neurological Neurological ROS: no confusion, no convulsions, no focal weakness, no numbness, no tingling, no tremor(s) - Hematologic/Lymphatic Hematologic/Lymphatic: no easy bruising - Constitutional Vitals: Temp Pulse Resp BP Pulse Ox 98 F 71 19 110/64 98 07/04/18 15:18 07/04/18 16:12 07/04/18 15:18 07/04/18 16:12 07/04/18 15:18 General appearance: Present: A&O X 3 Exam: . - Head Head exam: Present: atraumatic, normocephalic - Eye Eye exam: Present: PERRL, conjuntiva pink, sclera anicteric Pupils: Present: PERRL - Neck Neck exam general surgery: Present: supple, trachea midline. Absent: lymphadenopathy - Respiratory Respiratory exam: Present: CTAB. Absent: accessory muscle use, rales, rhonchi, wheezes - Cardiovascular Cardiovascular exam: Present: RRR, +S1, +S2. Absent: diastolic murmur, gallop, rubs, systolic murmur - GI/Abdominal GI/Abdominal exam: Present: normal bowel sounds, soft, no peritoneal signs. Absent: distended, tenderness - Extremities Exam Extremities exam: Present: warm, radial pulses palpable and symmetrical. Absent: calf tenderness, cyanotic, pedal edema - Neurological Exam Neurological exam: Present: CN II-XII intact, oriented X3, no focal deficits. Absent: pronater drift, facial droop, speech deficit - Skin Skin exam: Present: dry, intact Internal Med - H&P Results - Labs CBC & Chem 7: 07/04/18 15:23 07/04/18 15:23 Labs: Short CBC 07/04/18 Range/Units 15:23 WBC 6.8 (4.3-11.1) K/mcL Hgb 13.9 (11.5-15.4) g/dL Hct 43.9 (35.3-44.9) % Plt Count 239 (140-400) K/mcL Neutrophils # 4.9 (1.6-8.9) K/mcL BMP 07/04/18 15:23 Sodium 139 Potassium 3.7 Chloride 103 Carbon Dioxide 25 BUN 19 Creatinine 1.09 Glucose 134 H Calcium 9.5 Cardiac Enzymes 07/04/18 Range/Units 15:23 Troponin I 0.04 H* (< 0.04) ng/mL - Impressions ITS Impressions CT Dissection 07/04/18 15:23 IMPRESSION: 1. No acute process within the chest or abdomen. Namely, there is atherosclerotic disease of the thoracic and abdominal aorta without evidence of stenosis, aneurysm, or dissection. 2. Nonspecific mild circumferential wall thickening of the distal descending colon as well as the rectosigmoid colon, which may suggest a focal infectious or inflammatory colitis in the right clinical setting. Ischemic colitis is considered less likely. There is no evidence of pneumatosis, perforation, or free air. 3. Stable chronic interstitial pulmonary fibrosis. 4. Stable scattered noncalcified nodules within both lungs, the largest measuring 6 mm within the right middle lobe. These are unchanged from 03/2017. Suggest a final follow-up chest CT in 9 months to document 2-year stability of these nodules, as advised below. 5. Nonspecific 1.8 cm cystic lesion within the pancreatic head, likely either a benign cyst or IPMN. Consider further characterization with a follow-up pancreatic protocol MRI. 6. Colonic diverticulosis. RECOMMENDATIONS: Fleischner Society guidelines for follow-up and management of incidentally detected pulmonary nodules: Multiple Solid Nodules: Nodule size equals 6-8 mm In a low-risk patient, CT at 3-6 months, then consider CT at 18-24 months. In a high-risk patient, CT at 3-6 months, then CT at 18-24 months. Radiology 2017 http://pubs.rsna.org/doi/full/10.1148/radiol.[email or web address] D/ / 07/04/2018 16:27:04 Royal Matias MD / [facility] Interpreting Provider: Royal Matias MD Chest X-Ray 07/04/18 15:23 IMPRESSION: Patchy airspace disease at the left base may represent atelectasis or evolving infiltrate. PA and lateral chest would be helpful for further evaluation. D/ / 07/04/2018 15:58:48 Jaiden Jolly MD / [facility] Interpreting Provider: Jaiden Jolly MD - Assessment and plan (1) Chest pain Current Visit: No Status: Acute Assessment and plan: Presented after experiencing sharp back pain in between her shoulder blades started suddenly [id number] prior to arrival experiencing weakness she was tachycardic and low blood pressure this a.m. no relieving factors associated symptoms of shortness of breath and nausea First troponin was slightly elevated 0.04 patient does have a history of CKD which may be contributing to this however previous troponins have been negative. We will continue to trend troponins currently she is anticoagulated on Coumadin INR 2.3 this time EKG with no ST-T wave abnormalities Continuous cardiac monitoring Nitroglycerin as needed for chest pain Obtain cardiac echo We will wait for second troponin-make patient nothing by mouth for a possible intervention in the a.m.-consult cardiology as needed Qualifiers: Chest pain type: unspecified Qualified Code(s): R07.9 - Chest pain, unspecified (2) Pulmonary nodule Current Visit: Yes Status: Acute Assessment and plan: 1 CT A of chest-Stable scattered noncalcified nodules within both lungs, the largest measuring 6 mm within the right middle lobe. These are unchanged from 03/2017. Suggest a final follow-up chest CT in 9 months to document 2-year stability of these nodules, as advised below. (3) Atrial fibrillation Current Visit: No Status: Acute Assessment and plan: Currently rate controlled continue with beta abraham Cardizem and Coumadin Qualifiers: Atrial fibrillation type: paroxysmal Qualified Code(s): I48.0 - Paroxysmal atrial fibrillation (4) DVT prophylaxis Current Visit: No Status: Acute Assessment and plan: On Coumadin (5) CAD (coronary artery disease) Current Visit: No Status: Chronic Assessment and plan: History of CAD heart In 2008 2 stents placed. Troponin is slightly elevated at 0.04 EKG-- Nuclear stress test from 06/28/15 from [place] stress EKG nondiagnostic for isch emia due to baseline nonspecific ST and T wave changes gaited EF greater than 70% perfusion imaging was negative for ischemia or infarct Echo from 03/21/17 Impressions: LVEF 60%. Normal LV chamber size and function. Mild concentric left ventricular hypertrophy. Indeterminate diastolic function. Atypical septal motion of unclear etiology. Normal right ventricular size with mildly reduced function. Severely dilated right atrium. Mild tricuspid regurgitation. Mild pulmonary hypertension. Estimated RVSP is 40 mmHg. Estimated RA pressure is 10 mmHg. Continue with beta abraham I to glycerin as needed continuous cardiac monitoring Qualifiers: Coronary Disease-Associated Artery/Lesion type: [place] artery [place] vs. transplanted heart: [place] heart Associated angina: without angina Qualified Code(s): I25.10 - Atherosclerotic heart disease of [place] coronary artery without angina pectoris (6) Chronic diastolic (congestive) heart failure Current Visit: No Status: Chronic Assessment and plan: 1 previous echo completed on 03/20/2017 Impressions: LVEF 60%. Normal LV chamber size and function. Mild concentric left ventricular hypertrophy. Indeterminate diastolic function. Atypical septal motion of unclear etiology. Normal right ventricular size with mildly reduced function. Severely dilated right atrium. Mild tricuspid regurgitation. Mild pulmonary hypertension. Estimated RVSP is 40 mmHg. Estimated RA pressure is 10 mmHg. Currently does not appear fluid overloaded we will recheck cardiac echo Monitor intake output daily weight low-sodium diet (7) Chronic kidney disease (CKD), stage III (moderate) Current Visit: No Status: Chronic Assessment and plan: History of CKG stage III currently creatinine is stable 1.09 GFR is 48 we will closely monitor patient did receive IV dye for CTA and the ER Avoid nephrotoxins Monitor intake and output daily weight (8) HTN (hypertension) Current Visit: No Status: Chronic Assessment and plan: Was elevated on presentation however stable at this time we will continue with home medications once verified Qualifiers: Hypertension type: essential hypertension Qualified Code(s): I10 - Essential (primary) hypertension (9) Hypothyroidism Current Visit: No Status: Chronic Assessment and plan: Check TSH and continue with Synthroid Qualifiers: Hypothyroidism type: acquired Qualified Code(s): E03.9 - Hypothyroidism, unspecified (10) Abnormal CT of the chest Current Visit: Yes Status: Acute Assessment and plan: Nonspecific 1.8 cm cystic lesion within the pancreatic head, likely either a benign cyst or IPMN. Consider further characterization with a follow-up pancreatic protocol MRI. - Time Spent With Patient Total time spent is greater than 50% in coordination of care (as documented) at patient's floor/unit and/or counseling patient:
[2018-07-04] MEDS ORDERED: *HR* Warfarin 3 MG TABLET PO ONE (18:45)
--- NOTE | 2018-07-05 01:09 | Event Note ---
Date of Encounter: 07/04/18 Time of Encounter: 22:00 Alerted by patient's nurse in [facility] that patient's troponin was now 0.20, up from the initial troponin of 0.04. Patient was admitted for ACS rule out and chest pain with complaint of sharp back pain, weakness, and tachycardia. Patient also reported nausea but denied shortness of breath. Stated that her pain was similar to when she had her stents placed in 2008. CT of the chest today showed no dissection and EKG showed sinus rhythm with atrial premature complex and prolonged [place] interval. Pt. asymptomatic and denying CP or SOB at this time. Last Echo on 03/21/18. Last nuclear stress test on 06/28/15. Risk factors: Afib on anticoagulation. Risk factors: CAD, previous CVA, HLD, HTN, and renal disease. Echocardiogram ordered. Cardiology consult ordered but not confirmed due to lateness of the evening. A.m. team to follow-up and confirm Cardiology consult for this patient. Nurse instructed to monitor patient closely overnight and alerted me immediately if any adverse changes.
[2018-07-05] MEDS: Acetaminophen 325 MG TABLET PO PRN (02:59)
[2018-07-05 03:28] LABS: BUN/Creatinine Ratio 19 (6-26); Blood Urea Nitrogen 20 mg/dL (8-23); Calcium 8.4 mg/dL (8.6-10.3); Carbon Dioxide 23 mEq/L (23-29); Chloride 109 mEq/L (98-107); Cholesterol 232 mg/dL (< 200); Glucose 113 mg/dL (70-105); HDL Cholesterol 33 mg/dL (40-59); LDL Cholesterol,Calculated 127 mg/dL (0-99); Osmolality,Calculated 293 (280-300); Potassium 3.7 mEq/L (3.5-5.1); Sodium 140 mEq/L (136-145); Triglycerides 360 mg/dL (< 150); eGFR For Non-African Americans 52 (> 60)
[2018-07-05 03:41] LABS: Thyroid Stimulating Hormone 3.647 mcIU/mL (0.340-5.600)
[2018-07-05 04:14] LABS: Basophils % 0.4 %; Eosinophils # 0.1 K/mcL (0.0-0.6); Eosinophils % 1.7 %; Hematocrit 35.4 % (35.3-44.9); Hemoglobin 11.2 g/dL (11.5-15.4); INR 2.5; Immature Granulocytes % 0.9 % (0-4); Immature Platelets 2.2 % (1.1-6.1); Lymphocytes # 1.5 K/mcL (0.6-4.6); Lymphocytes % 18.7 %; Mean Corpuscular HGB Conc 31.6 g/dL (31.6-35.5); Mean Corpuscular Hemoglobin 31.6 pg (28.0-33.3); Mean Platelet Volume 10.2 fL (9.4-12.4); Monocytes # 0.6 K/mcL (0.0-1.3); Monocytes % 7.3 %; Neutrophils # 5.8 K/mcL (1.6-8.9); Platelet Count 188 K/mcL (140-400); Prothrombin Time 28.2 Seconds (9.4-12.1); Red Blood Count 3.54 M/mcL (3.82-4.97); Red Cell Distribution Width 13.8 % (11.5-14.5)
[2018-07-05] MEDS: Levothyroxine 25 MCG TABLET PO SCH (05:18)
[2018-07-05] MEDS: *HR* HYDROcodone/Acet 5/325 mg TABLET PO PRN ×2 (06:15→21:46)
[2018-07-05] MEDS: Diltiazem CD (24hr) 120 MG CAPSULE PO SCH (09:19)
[2018-07-05] MEDS: Multivit/Ca/Min/Fe/FA 1 TAB TABLET PO SCH (09:19)
[2018-07-05] MEDS: amLODIPine 5 MG TABLET PO SCH (09:20)
--- NOTE | 2018-07-05 10:17 | Internal Med Progress Note ---
Hospitalist Progress Note - Encounter Date of Encounter: 07/05/18 Time of Encounter: 10:16 - Subjective Interval History: Patient seen and examined at bedside, denies any chest pain or shortness of breath. Discussed treatment plan with the patient verbalized understanding. - Exam Vitals: Temp Pulse Resp BP Pulse Ox 98.1 F 64 16 113/63 97 07/05/18 08:25 07/05/18 08:25 07/05/18 08:25 07/05/18 08:25 07/05/18 08:25 Exam: General: Well developed elderly female no distress Skin: Warm and supple. HEENT: Moist mucous membranes. No conjunctivae pallor. Neck: No lymphadenopathy. No JVD. No carotid bruits. No palpable thyroid. Chest: Normal thoracic expansion. Normal breath sounds. Clear to auscultation. Heart: Irregularly irregular. Abdomen: Non-distended, soft and non-tender to palpation. No peritoneal reaction. Extremities: pedal pulses present bilat - no edema Neurological: Awake, alert and oriented to person, place and time. No focal deficits. Psych: Affect appropriate. - Assessment and Plan (1) NSTEMI (non-ST elevated myocardial infarction) Current Visit: Yes Status: Acute Assessment and Plan: 1 presented with interscapular pain PCI in 2008 stent placement 2-elevated troponin currently 0.28. EKG with no ST-T wave elevation Currently on Coumadin INR is 2.5 hold Coumadin once INR is less than 2 patient will initiated on heparin anticipate left heart catheter per cardiology Cardiology consult appreciate recommendations (2) Pulmonary nodule Current Visit: Yes Status: Acute Assessment and Plan: 1 CT A of chest-Stable scattered noncalcified nodules within both lungs, the largest measuring 6 mm within the right middle lobe. These are unchanged from 03/2017. Suggest a final follow-up chest CT in 9 months to document 2-year stability of these nodules, as advised below. 07/05/2018 As above (3) Atrial fibrillation Current Visit: No Status: Acute Assessment and Plan: Currently rate controlled continue with beta abraham Cardizem and Coumadin 07/05/2018 Currently rate controlled with continue beta abraham Cardizem Coumadin (4) DVT prophylaxis Current Visit: No Status: Acute Assessment and Plan: On Coumadin (5) CAD (coronary artery disease) Current Visit: No Status: Chronic Assessment and Plan: History of CAD heart In 2008 2 stents placed. Troponin is slightly elevated at 0.04 EKG-- Nuclear stress test from 06/28/15 from [place] stress EKG nondiagnostic for ischemia due to baseline nonspecific ST and T wave changes gaited EF greater than 70% perfusion imaging was negative for ischemia or infarct Echo from 03/21/17 Impressions: LVEF 60%. Normal LV chamber size and function. Mild concentric left ventricular hypertrophy. Indeterminate diastolic function. Atypical septal motion of unclear etiology. Normal right ventricular size with mildly reduced function. Severely dilated right atrium. Mild tricuspid regurgitation. Mild pulmonary hypertension. Estimated RVSP is 40 mmHg. Estimated RA pressure is 10 mmHg. Continue with beta abraham I to glycerin as needed continuous cardiac monitoring 07/05/2018 History of CAD heart catheter 2008 with 2 stents placed-troponin elevated currently 0.28 Cardiology has been consulted Patient will be nothing by mouth after midnight for left heart catheter in a.m. (6) Chronic diastolic (congestive) heart failure Current Visit: No Status: Chronic Assessment and Plan: 1 previous echo completed on 03/20/2017 Impressions: LVEF 60%. Normal LV chamber size and function. Mild concentric left ventricular hypertrophy. Indeterminate diastolic function. Atypical septal motion of unclear etiology. Normal right ventricular size with mildly reduced function. Severely dilated right atrium. Mild tricuspid regurgitation. Mild pulmonary hypertension. Estimated RVSP is 40 mmHg. Estimated RA pressure is 10 mmHg. Currently does not appear fluid overloaded we will recheck cardiac echo Monitor intake output daily weight low-sodium diet 07/05/2018 Currently does not appear to be fluid overloaded we will monitor closely Monitor intake output daily [id number] diet (7) Chronic kidney disease (CKD), stage III (moderate) Current Visit: No Status: Chronic Assessment and Plan: History of CKG stage III currently creatinine is stable 1.09 GFR is 48 we will closely monitor patient did receive IV dye for CTA and the ER Avoid nephrotoxins Monitor intake and output daily weight 07/05/2018 CKD 3 - creatinine stable will cont to monitor avoid nephrotoxins monitor I/0 daily weights (8) HTN (hypertension) Current Visit: No Status: Chronic Assessment and Plan: Was elevated on presentation however stable at this time we will continue with home medications once verified 07/05/2018 cont with home medications - stable at this time (9) Hypothyroidism Current Visit: No Status: Chronic Assessment and Plan: Check TSH and continue with Synthroid 07/05/2018 cont with synthroid (10) Abnormal CT of the chest Current Visit: Yes Status: Acute Assessment and Plan: Nonspecific 1.8 cm cystic lesion within the pancreatic head, likely either a benign cyst or IPMN. Consider further characterization with a follow-up pancreatic protocol MRI. 07/05/2018 see above (11) Pancreatic cyst Current Visit: Yes Status: Acute Assessment and Plan: Nonspecific 1.8 cm cystic lesion within the pancreatic head, likely either a benign cyst or IPMN. Consider further characterization with a follow-up pancreatic protocol MRI. - Time Spent with Patient Total time spent is greater than 50% in coordination of care (as documented) at patient's floor/unit and/or counseling patient: Internal Medicine: Result - Labs CBC & Chem 7: 07/05/18 02:43 07/05/18 02:43 Labs: Short CBC 07/04/18 07/05/18 Range/Units 15:23 02:43 WBC 6.8 8.2 (4.3-11.1) K/mcL Hgb 13.9 11.2 L D (11.5-15.4) g/dL Hct 43.9 35.4 (35.3-44.9) % Plt Count 239 188 (140-400) K/mcL Neutrophils # 4.9 5.8 (1.6-8.9) K/mcL BMP 07/04/18 07/05/18 15:23 02:43 Sodium 139 140 Potassium 3.7 3.7 Chloride 103 109 H Carbon Dioxide 25 23 BUN 19 20 Creatinine 1.09 1.03 Glucose 134 H 113 H Calcium 9.5 8.4 L Cardiac Enzymes 07/04/18 07/04/18 07/05/18 Range/Units 15:23 20:55 02:43 Troponin I 0.04 H* 0.20 H* 0.28 H* (< 0.04) ng/mL - ABG Interpretation ABG results: PT/INR, D-dimer PT 28.2 Seconds (9.4-12.1) H 07/05/18 02:43 - Impressions Impressions CT Dissection 07/04/18 15:23 IMPRESSION: 1. No acute process within the chest or abdomen. Namely, there is atherosclerotic disease of the thoracic and abdominal aorta without evidence of stenosis, aneurysm, or dissection. 2. Nonspecific mild circumferential wall thickening of the distal descending colon as well as the rectosigmoid colon, which may suggest a focal infectious or inflammatory colitis in the right clinical setting. Ischemic colitis is considered less likely. There is no evidence of pneumatosis, perforation, or free air. 3. Stable chronic interstitial pulmonary fibrosis. 4. Stable scattered noncalcified nodules within both lungs, the largest measuring 6 mm within the right middle lobe. These are unchanged from 03/2017. Suggest a final follow-up chest CT in 9 months to document 2-year stability of these nodules, as advised below. 5. Nonspecific 1.8 cm cystic lesion within the pancreatic head, likely either a benign cyst or IPMN. Consider further characterization with a follow-up pancreatic protocol MRI. 6. Colonic diverticulosis. RECOMMENDATIONS: Fleischner Society guidelines for follow-up and management of incidentally detected pulmonary nodules: Multiple Solid Nodules: Nodule size equals 6-8 mm In a low-risk patient, CT at 3-6 months, then consider CT at 18-24 months. In a high-risk patient, CT at 3-6 months, then CT at 18-24 months. Radiology 2017 http://pubs.rsna.org/doi/full/10.1148/radiol.[id number] D/ / 07/04/2018 16:27:04 Royal Matias MD / [facility] Interpreting Provider: Royal Matias MD Chest X-Ray 07/04/18 15:23 IMPRESSION: Patchy airspace disease at the left base may represent atelectasis or evolving infiltrate. PA and lateral chest would be helpful for further evaluation. D/ / 07/04/2018 15:58:48 Jaiden Jolly MD / [facility] Interpreting Provider: Jaiden Jolly MD Consult Discharge Plan - Plan Referrals: Dereje Coughlin Jr, MD [Primary Care Provider] - (3) Atrial fibrillation Qualifiers: Atrial fibrillation type: paroxysmal Qualified Code(s): I48.0 - Paroxysmal atrial fibrillation (5) CAD (coronary artery disease) Qualifiers: Coronary Disease-Associated Artery/Lesion type: [place] artery [place] vs. transplanted heart: [place] heart Associated angina: without angina Qualified Code(s): I25.10 - Atherosclerotic heart disease of [place] coronary artery without angina pectoris (8) HTN (hypertension) Qualifiers: Hypertension type: essential hypertension Qualified Code(s): I10 - Essential (primary) hypertension (9) Hypothyroidism Qualifiers: Hypothyroidism type: acquired Qualified Code(s): E03.9 - Hypothyroidism, unspecified
--- NOTE | 2018-07-05 11:06 | Cardiology Consult Note ---
Date of Encounter: 07/05/18 Time of Encounter: 11:03 Assessment and Plan (1) Atrial fibrillation with RVR Current Visit: No Status: Acute Paroxysmal atrial fibrillation on Coumadin. Hold Coumadin and start heparin for INR less than 2.0 in anticipation of an LHC. (2) NSTEMI (non-ST elevated myocardial infarction) Current Visit: Yes Status: Acute Interscapular pain with multiple Cardec risk factors including PCI in 2008. Mild ischemic trend on her troponins currently at 0.28. Heparin when INR is less than 2.0 should be started in anticipation of an LHC. Risks benefits and alternatives were discussed with patient and family members and patient agrees to proceed. Discussion w patient/family: The assessment and plan as outlined above was discussed with the patient and/or family members who expressed understanding and agreement. All questions were answered. Thank you for involving us in the care of your patient. Please call with any questions. History of Present Illness Consult date: 07/05/18 Consult reason: NSTEMI Chief complaint: Chest Pain History of present illness: Ms. Weston is a 78 year old female with history of multiple cardiac risk factors including hypertension, hyperlipidemia, coronary artery disease status p ost-2 stents in 2008, atrial fibrillation on Coumadin for stroke risk reduction presents with intrascapular discomfort. She states she has been having this discomfort over the past week on and off. On presentation initial troponin of 0.04 currently at 0.28. Past Med Surg Social Fam HX - Past Medical History Medical history: arthritis, atrial fibrillation, coronary artery disease, CVA, hyperlipidemia, hypertension, renal disease, other Additional medical history: occassional hypotension. Psychiatric history: no psych history - Past Surgical History Surgical History: angioplasty/stent, other Additional surgical history: Back surgery x 2. - Social History Smoking Status: Never smoker Smokeless Tobacco Status: No Alcohol use: none Drug use: none - Family History Mother Living Status: Hx Family Cardiac Disorders: Yes Hx Family Respiratory Disorders: No Hx Family Cancer: No Hx Family GI Disorders: No Hx Family Endocrine Disorder: No Hx Family Neuromuscular Disorders: No Hx Family Neurologic Disorders: Yes Hx Family HEENT Disorders: No Hx Family Autoimmune Disorders: No Medications and Allergies Acetaminophen [Tylenol] 500 mg PO Q6HR PRN 06/19/15 [History] HYDROcodone/Acet 5/325 mg [[place] 5-325 mg] 0.5 tab PO Q6H PRN 06/19/15 [History] Multivitamin/Iron/Folic Acid [Centrum Complete Multivit Tab] 1 each PO QAM 06/19/15 [History] Biotin 1 mg PO DAILY 03/20/17 [History] Bisacodyl [Dulcolax] 5 mg PO QAM 03/20/17 [History] Ergocalciferol (VITAMIN D2) [Vitamin D2] 50,000 unit PO MO 03/20/17 [History] Olopatadine HCl [Pataday] 1 drop OP TID PRN 03/20/17 [History] Simethicone [Gas-X] 80 mg PO TID PRN 03/20/17 [History] Levothyroxine [Synthroid] 25 mcg PO QAM #45 tablet 03/21/17 [Rx] Diltiazem HCl [Diltiazem ER] 120 mg PO DAILY 07/04/18 [History] Metoprolol Tartrate [Lopressor] 25 mg PO BID 07/04/18 [History] Warfarin [Coumadin] 3 mg PO DAILY 07/04/18 [History] amLODIPine [Norvasc] 2.5 mg PO DAILY 07/04/18 [History] Allergy/AdvReac Type Severity Reaction Status Date / Time Penicillins Allergy Rash Verified 06/19/15 12:32 rosuvastatin [From Crestor] Allergy See Verified 06/19/15 13:49 Comments Sulfa (Sulfonamide Allergy Rash Verified 06/19/15 12:32 Antibiotics) morphine AdvReac Mild Nausea and Verified 03/22/17 07:15 Vomiting All Systems Review: The remainder of the systems were reviewed and are negative Physical Examination Vital Signs, Last 4 Hours Temp Pulse Resp BP Pulse Ox 07/05/18 08:25 98.1 F 64 16 113/63 97 General: Conversant, No Apparent Distress HEENT: Atraumatic, Normocephaly, Mucus Membranes Moist Neck: No JVD, Normal carotid pulses Cardiac: Reg Rate and Rhythm, Normal S1 and S2, No Murmur Lungs: Normal Breath Sounds, No Wheeze, Rales, Rhonchi Neuro: Alert and responsive, No focal deficits noted Abdomen: Soft, Non-Tender Skin: No rashes noted on visualized skin Musculoskeletal: No Chest Wall Tenderness Extremities: No Clubbing, No Cyanosis, No Edema, Normal Pulses Results 07/05/18 02:43 07/05/18 02:43 Lab Results 07/04/18 07/04/18 07/04/18 15:23 15:23 15:25 WBC 6.8 Hgb 13.9 Hct 43.9 Plt Count 239 INR 2.3 APTT 34.6 Sodium 139 Potassium 3.7 Chloride 103 Carbon Dioxide 25 BUN 19 Creatinine 1.09 Glucose 134 H Calcium 9.5 Magnesium Troponin I 0.04 H* TSH 07/04/18 07/05/18 07/05/18 20:55 02:43 02:43 WBC 8.2 Hgb 11.2 L D Hct 35.4 Plt Count 188 INR APTT Sodium Potassium Chloride Carbon Dioxide BUN Creatinine Glucose Calcium Magnesium Troponin I 0.20 H* 0.28 H* TSH 07/05/18 07/05/18 07/05/18 02:43 02:43 02:43 WBC Hgb Hct Plt Count INR 2.5 APTT 32.5 Sodium 140 Potassium 3.7 Chloride 109 H Carbon Dioxide 23 BUN 20 Creatinine 1.03 Glucose 113 H Calcium 8.4 L Magnesium 2.0 Troponin I TSH 3.647 Consult Discharge Plan - Plan Referrals: Dereje Coughlin Jr, MD [Primary Care Provider] -
[2018-07-05 15:14] LABS: INR 2.4; Prothrombin Time 27.3 Seconds (9.4-12.1)
[2018-07-05] MEDS ORDERED: Warfarin perPT PO PRN (18:00)
[2018-07-06 04:33] LABS: Basophils % 0.4 %; Eosinophils # 0.1 K/mcL (0.0-0.6); Eosinophils % 1.5 %; Hematocrit 38.4 % (35.3-44.9); Hemoglobin 12.2 g/dL (11.5-15.4); Immature Granulocytes % 0.3 % (0-4); Lymphocytes # 2.1 K/mcL (0.6-4.6); Lymphocytes % 22.4 %; Mean Corpuscular HGB Conc 31.8 g/dL (31.6-35.5); Mean Corpuscular Hemoglobin 31.1 pg (28.0-33.3); Mean Platelet Volume 10.9 fL (9.4-12.4); Monocytes # 0.7 K/mcL (0.0-1.3); Neutrophils # 6.3 K/mcL (1.6-8.9); Platelet Count 201 K/mcL (140-400); Red Blood Count 3.92 M/mcL (3.82-4.97); Red Cell Distribution Width 13.8 % (11.5-14.5); Segmented Neutrophils % 68.4 %
[2018-07-06 04:39] LABS: INR 1.8; Prothrombin Time 20.3 Seconds (9.4-12.1)
[2018-07-06 04:53] LABS: BUN/Creatinine Ratio 15 (6-26); Blood Urea Nitrogen 15 mg/dL (8-23); Carbon Dioxide 26 mEq/L (23-29); Chloride 107 mEq/L (98-107); Glucose 101 mg/dL (70-105); Osmolality,Calculated 289 (280-300); Sodium 139 mEq/L (136-145); eGFR For Non-African Americans 54 (> 60)
[2018-07-06] MEDS ORDERED: *HR* Heparin 5,000 UNIT/ML VIAL IVP PRN ×2 (05:37)
[2018-07-06] MEDS ORDERED: *HR* Heparin 5,000 UNIT/ML VIAL IVP ONE (05:37)
[2018-07-06 06:16] LABS: Hematocrit 36.8 % (35.3-44.9); Hemoglobin 11.9 g/dL (11.5-15.4); Mean Corpuscular HGB Conc 32.3 g/dL (31.6-35.5); Mean Corpuscular Hemoglobin 31.6 pg (28.0-33.3); Mean Corpuscular Volume 97.9 fL (83.0-100.0); Mean Platelet Volume 10.3 fL (9.4-12.4); Platelet Count 173 K/mcL (140-400); Red Blood Count 3.76 M/mcL (3.82-4.97); Red Cell Distribution Width 13.8 % (11.5-14.5)
[2018-07-06 06:24] LABS: INR 1.8; Prothrombin Time 20.2 Seconds (9.4-12.1)
[2018-07-06] MEDS: Heparin 25,000 UNIT/500 ML D5W 25,000 UNIT/500 ML BAG IVC SCH (06:33)
--- NOTE | 2018-07-06 08:28 | Pre-Sedation Evaluation ---
Pre-sedation evaluation - Pre-sedation checklist Date of procedure: 07/06/18 Procedure: LHC Recent Vitals: Last Vital Signs Temp 97.5 F L 07/06/18 07:35 Pulse 67 07/06/18 07:35 Resp 16 07/06/18 07:35 BP 165/67 07/06/18 07:35 Pulse Ox 98 07/06/18 07:35 ASA Classification *see protocol: CLASS II-Mild systemic disease Cardiac Registry (Cardio Only) - Functional Capacity Functional Capacity: >=4 METS with symptoms - Clincal Frailty Scale Clinical Frailty Scale: Managing Well
[2018-07-06] MEDS: amLODIPine 5 MG TABLET PO SCH (08:46)
[2018-07-06] MEDS: Acetaminophen 325 MG TABLET PO PRN (08:46)
[2018-07-06] MEDS: Diltiazem CD (24hr) 120 MG CAPSULE PO SCH (08:46)
[2018-07-06] MEDS: Multivit/Ca/Min/Fe/FA 1 TAB TABLET PO SCH (08:46)
[2018-07-06] MEDS ORDERED: 0.9 % Sodium Chloride 1,000 ML ONE (15:51)
[2018-07-06] MEDS ORDERED: 0.9 % Sodium Chloride 2,000 ML ONE (16:19)
[2018-07-06] MEDS ORDERED: Heparin 1,000 UNITS/500 mL 500 ML ONE (16:19)
[2018-07-06] MEDS ORDERED: *HR* Heparin 10,000 UNIT/10 ML VIAL ONE (16:19)
[2018-07-06] MEDS ORDERED: Nitroglycerin 1,000 MCG/10 ML VIAL IV ONE (16:19)
[2018-07-06] MEDS ORDERED: ISOVUE-370 200 ML INFUS..BTL ONE (16:19)
[2018-07-06] MEDS ORDERED: *HR* FentaNYL (PF) 100 MCG/2 ML VIAL ONE (16:28)
[2018-07-06] MEDS ORDERED: *HR* Midazolam HCl 2 MG/2 ML VIAL ONE (16:28)
--- NOTE | 2018-07-06 16:33 | Internal Med Progress Note ---
Hospitalist Progress Note - Encounter Date of Encounter: 07/06/18 Time of Encounter: 11:00 - Subjective Interval History: Patient seen and examined at bedside, denies any chest pain or shortness of breath. Currently awaiting cardiac catheter-shaped on heparin drip this a.m. Discussed treatment plan with the patient verbalized understanding. - Exam Vitals: Temp Pulse Resp BP Pulse Ox 98.2 F 59 16 150/68 97 07/06/18 15:05 07/06/18 15:05 07/06/18 15:05 07/06/18 15:05 07/06/18 15:05 Exam: General: Well developed elderly female no distress Skin: Warm and supple. HEENT: Moist mucous membranes. No conjunctivae pallor. Neck: No lymphadenopathy. No JVD. No carotid bruits. No palpable thyroid. Chest: Normal thoracic expansion. Normal breath sounds. Clear to auscultation. Heart: Irregularly irregular. Abdomen: Non-distended, soft and non-tender to palpation. No peritoneal reaction. Extremities: pedal pulses present bilat - no edema Neurological: Awake, alert and oriented to person, place and time. No focal deficits. Psych: Affect appropriate. - Assessment and Plan (1) NSTEMI (non-ST elevated myocardial infarction) Current Visit: Yes Status: Acute Assessment and Plan: 1 presented with interscapular pain PCI in 2009 stent placement 2-elevated troponin currently 0.28. EKG with no ST-T wave elevation Currently on Coumadin INR is 2.5 hold Coumadin once INR is less than 2 patient will initiated on heparin anticipate left heart catheter per cardiology Cardiology consult appreciate recommendations 07/06/2018 Cardiology has been consulted and appreciate recommendations. She was initiated on heparin drip this a.m. INR was less than 2. We will resume Coumadin postprocedure. She will undergo cardiac catheter today currently nothing by mouth denies any chest pain at this time (2) Pulmonary nodule Current Visit: Yes Status: Acute Assessment and Plan: 1 CT A of chest-Stable scattered noncalcified nodules within both lungs, the largest measuring 6 mm within the right middle lobe. These are unchanged from 03/2017. Suggest a final follow-up chest CT in 9 months to document 2-year stability of these nodules, as advised below. 07/05/2018 As above 07/06/2018 Will follow up as outpatient for monitoring (3) Atrial fibrillation Current Visit: No Status: Acute Assessment and Plan: Currently rate controlled continue with beta abraham Cardizem and Coumadin 07/05/2018 Currently rate controlled with continue beta abraham Cardizem Coumadin 07/06/2018 Early she is rate controlled continue with beta abraham and Cardizem. Coumadin has been held and currently on heparin drip for LHC. We will resume Coumadin postprocedure she will follow up with the Coumadin clinic (4) DVT prophylaxis Current Visit: No Status: Acute Assessment and Plan: On Coumadin (5) CAD (coronary artery disease) Current Visit: No Status: Chronic Assessment and Plan: History of CAD heart In 2008 2 stents placed. Troponin is slightly elevated at 0.04 EKG-- Nuclear stress test from 06/28/15 from [facility] stress EKG nondiagnostic for ischemia due to baseline nonspecific ST and T wave changes gaited EF greater than 70% perfusion imaging was negative for ischemia or infarct Echo from 03/21/17 Impressions: LVEF 60%. Normal LV chamber size and function. Mild concentric left ventricular hypertrophy. Indeterminate diastolic function. Atypical septal motion of unclear etiology. Normal right ventricular size with mildly reduced function. Severely dilated right atrium. Mild tricuspid regurgitation. Mild pulmonary hypertension. Estimated RVSP is 40 mmHg. Estimated RA pressure is 10 mmHg. Continue with beta abraham I to glycerin as needed continuous cardiac monitoring 07/05/2018 History of CAD heart catheter 2008 with 2 stents placed-troponin elevated currently 0.28 Cardiology has been consulted Patient will be nothing by mouth after midnight for left heart catheter in a.m. 07/06/2018 As above currently no chest pain (6) Chronic diastolic (congestive) heart failure Current Visit: No Status: Chronic Assessment and Plan: 1 previous echo completed on 03/20/2017 Impressions: LVEF 60%. Normal LV chamber size and function. Mild concentric left ventricular hypertrophy. Indeterminate diastolic function. Atypical septal motion of unclear etiology. Normal right ventricular size with mildly reduced function. Severely dilated right atrium. Mild tricuspid regurgitation. Mild pulmonary hypertension. Estimated RVSP is 40 mmHg. Estimated RA pressure is 10 mmHg. Currently does not appear fluid overloaded we will recheck cardiac echo Monitor intake output daily weight low-sodium diet 07/05/2018 Currently does not appear to be fluid overloaded we will monitor closely Monitor intake output daily [id number] diet 07/06/2018 Does not appear fluid load overloaded at this time we will monitor closely (7) Chronic kidney disease (CKD), stage III (moderate) Current Visit: No Status: Chronic Assessment and Plan: History of CKG stage III currently creatinine is stable 1.09 GFR is 48 we will closely monitor patient did receive IV dye for CTA and the ER Avoid nephrotoxins Monitor intake and output daily weight 07/05/2018 CKD 3 - creatinine stable will cont to monitor avoid nephrotoxins monitor I/0 daily weights 07/06/2018 CKG stage III creatinine stable at this time continue to monitor avoid nephrotoxins monitor intake and output daily weights (8) HTN (hypertension) Current Visit: No Status: Chronic Assessment and Plan: Was elevated on presentation however stable at this time we will continue with home medications once verified 07/05/2018 cont with home medications - stable at this time 07/06/2018 Stable continue with home medication (9) Hypothyroidism Current Visit: No Status: Chronic Assessment and Plan: Check TSH and continue with Synthroid 07/05/2018 cont with synthroid 07.06.2018 Continue with Synthroid (10) Abnormal CT of the chest Current Visit: Yes Status: Acute Assessment and Plan: Nonspecific 1.8 cm cystic lesion within the pancreatic head, likely either a benign cyst or IPMN. Consider further characterization with a follow-up pancreatic protocol MRI. 07/05/2018 see above 07/06/2018 As above (11) Pancreatic cyst Current Visit: Yes Status: Acute Assessment and Plan: Nonspecific 1.8 cm cystic lesion within the pancreatic head, likely either a benign cyst or IPMN. Consider further characterization with a follow-up pancreatic protocol MRI. - Time Spent with Patient Total time spent is greater than 50% in coordination of care (as documented) at patient's floor/unit and/or counseling patient: Internal Medicine: Result - Labs CBC & Chem 7: 07/06/18 05:53 07/06/18 03:35 Labs: Short CBC 07/06/18 07/06/18 Range/Units 03:35 05:53 WBC 9.3 7.5 (4.3-11.1) K/mcL Hgb 12.2 11.9 (11.5-15.4) g/dL Hct 38.4 36.8 (35.3-44.9) % Plt Count 201 173 (140-400) K/mcL Neutrophils # 6.3 (1.6-8.9) K/mcL BMP 07/06/18 03:35 Sodium 139 Potassium 4.0 Chloride 107 Carbon Dioxide 26 BUN 15 Creatinine 0.99 Glucose 101 Calcium 9.0 - ABG Interpretation ABG results: PT/INR, D-dimer PT 20.2 Seconds (9.4-12.1) H 07/06/18 05:53 Consult Discharge Plan - Plan Referrals: Dereje Coughlin Jr, MD [Primary Care Provider] - (3) Atrial fibrillation Qualifiers: Atrial fibrillation type: paroxysmal Qualified Code(s): I48.0 - Paroxysmal atrial fibrillation (5) CAD (coronary artery disease) Qualifiers: Coronary Disease-Associated Artery/Lesion type: [place] artery [place] vs. transplanted heart: [place] heart Associated angina: without angina Qualified Code(s): I25.10 - Atherosclerotic heart disease of [place] coronary artery without angina pectoris (8) HTN (hypertension) Qualifiers: Hypertension type: essential hypertension Qualified Code(s): I10 - Essential (primary) hypertension (9) Hypothyroidism Qualifiers: Hypothyroidism type: acquired Qualified Code(s): E03.9 - Hypothyroidism, unspecified
[2018-07-06] MEDS ORDERED: Nitroglycerin Spray 4.9 GM BOTTLE ONE (17:06)
--- NOTE | 2018-07-06 17:26 | Invasive Diagnostic Lab Proc ---
Name: Neetu Weston Date of Study: 07/06/2018 Date: 1940 Ht: 65.0in Medical Record#: [id number] Age: 78 Wt: 180.78lb Gender: Female BSA: 1.89 Order #: [id number] BMI: 30.12 Physicians Procedure Physician: Nora Montiel MD Referring MD: Referring MD: Staff Name [facility] Monitor 04:39 PM RomeoNeetu RN Digital Strategy Specialist 04:39 PM Jamila Min RN Nurse 04:39 PM Nikko Patterson RT (R) Scrub 04:39 PM Indications Indication Non-Stemi Procedures Performed Procedure L HRT ARTERY/VENTRICLE ANGIO Pre-Procedure Checklist Informed consent is complete signed and on chart. H&P is on chart. ID band is on and ID verified with patient. Patient NPO for procedure The procedure was described for the patient and questions were answered. Blood Pressure: 165/67 ECG is on chart. Plan of Care Patient will tolerate the procedure without complications. Adequate level of comfort will be maintained. Hemodynamics will remain stable Patient will recover from procedure without complications. Respiratory function will be maintained. Cardiac rhythm will remain stable. Patient temperature will be maintained. Patient and/or family have verbalized understanding of the procedure. Patient Education Chief Complaint/Reason for Test: Cardiac Cath Developmental Category: Geriatric (65+ years) Developmentally Appropriate for Age: Yes Learning Barriers: None Education Needs: Procedure Education Method: Verbal Information Taught: Cardiac Cath Educational Evaluation: Able to repeat information Intravenous Access Time IV Size Location DC'd Fluid/Drip Rate Units RN 10:05 AM 18g 1 06/19" Patent On Arrival Rt Antecubital Allergies PCN,CRESTOR, SULFA, BIAXCIN Penicillins Sulfa (Sulfonamide Antibiotics) Nitrate PCN (penicillin) SULFA (sulfonamide) rosuvastatin Chocolate PCN morphine Vital Signs Time BP (mmHg) HR (bpm) O2 Sat. RR (bpm) LOC 10:05 AM 165 / 67 67 98 % 16 5 = Fully awake and oriented or at pre-proc level 04:40 PM / % 5 = Fully awake and oriented or at pre-proc level 04:40 PM / % 4 = Oriented but drowsy 04:45 PM 186 / 84 65 99 % 17 04:50 PM 181 / 78 65 97 % 23 04:55 PM 176 / 75 62 98 % 20 05:00 PM 184 / 84 66 97 % 32 05:05 PM 183 / 77 66 95 % 24 Procedural Medications Time Medication Dose Units Method Given By 04:39 PM Oxygen 2 L/min nasal cannula Neetu Walters RN 04:46 PM Versed 1 mg Intravenous Neetu Walters RN 04:46 PM Benadryl 25 mg Intravenous Neetu Walters RN 04:51 PM Lidocaine 2% 10 ml Subcutaneous Nora Montiel MD 05:06 PM Nitro [place] 400 mg Sublingual Neetu Walters RN ASA Classification: CLASS II- Mild systemic disease (i.e. well-controlled diabetes, hypertension, asthma, cigarette smoking) Jose David Score Preprocedure Postprocedure Activity 2- Moves 4 extremities sustained head lift Activity 2- Moves 4 extremities sustained head lift Circulation 2- SBP +/= 20 points of pre-anesthetic level Circulation 2- SBP +/= 20 points of pre-anesthetic level Consciousness 2- Awake and alert oriented x 3 Consciousness 2- Awake and alert oriented x 3 O2 Saturation 2- Able to maintain O2 satruation of 92% on room air O2 Saturation 2- Able to maintain O2 satruation of 92% on room air Respiratory 2- Able to deep breathe and cough well Respiratory 2- Able to deep breathe and cough well Total Score 10 Total Score 10 Contrast Agent: Isovue Diagnostic Contrast: 79 ml Total Contrast: 79 ml Fluoro Dose: 3768 mGy Procedure Log Time Note Enter By 04:39 PM CathStat 04:39 PM Pt arrived to laborer stores 2 at 16:39 04:39 PM Patricia Locke RN Position: Monitor Time in: 16:39 estefany 04:39 PM Neetu Walters RN Position: Digital Strategy Specialist Time in: 16:39 estefany 04:39 PM Jamila Min RN Position: Nurse Time in: 16:39 04:39 PM Nikko Patterson RT (R) Position: Scrub Time in: 16:39 estefany 04:39 PM Patient charges- Angio tray pack, Navilyst 3mm J, Pulse Oximetry and ACIST tubing and transducer 04:39 PM Case Delayed No [email or web address] 04:39 PM Hair removed from procedure site in procedure lab using clippers. Bilateral groin prepped with Chloraprep by Jamila Min RN, then patient was draped. Skin intact. 04:39 PM Physician arrived 16:39 [facility] 04:39 PM Meet and greet completed 04:39 PM Sign in performed according to hospital policy. Informed consent was obtained. :39 PM Procedure start 16:39 [facility] :39 PM Time: 16:39 Oxygen on at 2 L/min per nasal cannula by Neetu Walters RN [facility] 04:40 PM ASA Class CLASS II- Mild systemic disease (i.e. well-controlled diabetes, hypertension, asthma, cigarette smoking) :40 PM Time: 16:40 Patient comfortable and pain free: Yes [facility] :40 PM Time: 16:40LOC: 5 = Fully awake and oriented or at pre-proc level [facility] 04:42 PM Vitals capture started with the following parameters, Patient=Adult, Interval=5 min, Initial Qjmstwfg=126 mmHg, Deflation Rate=5 mmHg, Cuff placed on Right Arm 04:44 PM Vitals capture started with the following parameters, Patient=Adult, Interval=5 min, Initial Xatnnjxf=321 mmHg, Deflation Rate=5 mmHg, Cuff placed on Right Arm 04:45 PM Recorded ECG: HR=66 Condition=Condition 1 04:45 PM HR=65 bpm, XMHT=210/84 mmhg, SpO2=99.0 %, Resp=17 B/min, EtCO2=28 mmHg 04:46 PM Time: 16:46 Versed 1 mg Intravenous Given by Neetu Walters RN [email or web address] 04:46 PM Time: 16:46 Benadryl 25 mg Intravenous Given by Neetu Walters RN [email or web address] 04:47 PM Pressure channel 1 zero failed. 04:47 PM Pressure channel 1 zeroed. 04:50 PM HR=65 bpm, LDNP=272/78 mmhg, SpO2=97.0 %, Resp=23 B/min 04:51 PM Time out was performed according to hospital policy. Conscious sedation and anesthesia was achieved (see medication log with in this report above) [facility] 04:52 PM Time: 16:51 10 ml Lidocaine 2% to right groin Subcutaneous Given by Nora Montiel MD 04:52 PM Micro-Introducer Kit utilized for sheath placement mm 04:54 PM Access obtained by percutaneous puncture. 6Fr 10cm Terumo [place] sheath placed in right Femoral artery. [id number] oumm 04:54 PM 0.035 145cm Navilyst 3mmJ wire [id number] mm 04:54 PM 5Fr FR 4 catheter inserted over the wire [facility] 04:54 PM wire removed oumm 04:55 PM HR=62 bpm, TXHM=265/75 mmhg, SpO2=98.0 %, Resp=20 B/min, EtCO2=30 mmHg 04:55 PM Time: 16:40LOC: 4 = Oriented but drowsy oumm 04:55 PM Time: 16:40 Patient comfortable and pain free: Yes oumm 04:56 PM RCA angiography performed in multiple views. oumm 04:56 PM Recorded Pressure: Ao, HR=64, Condition=Condition 1 (Aorta) Ao 101/47/68 04:57 PM Catheter removed 04:57 PM Coronary Dominance: right oumm 04:57 PM 5Fr FL 4 catheter inserted over the wire [facility] 04:58 PM Recorded Pressure: Ao, HR=67, Condition=Condition 1 (Aorta) Ao 174/73/115 04:58 PM LCA angiography performed in multiple views. tsoumm 05:00 PM Catheter removed oumm 05:00 PM HR=66 bpm, IXIH=670/84 mmhg, SpO2=97.0 %, Resp=32 B/min, EtCO2=25 mmHg 05:00 PM 5Fr Pigtail catheter inserted over the wire [facility] mm 05:00 PM Catheter crossed the aortic valve and was selectively placed in the left ventricle. Pressures recorded on pullback for left heart catheterization. tsoummers 05:00 PM no injection tsoummers 05:01 PM Recorded Pressure: LV, HR=69, Condition=Condition 1 (Left Ventricle) LV 191/14/17 05:01 PM Recorded Pressure: LV, Ao, HR=67, Condition=Condition 1 (Left Ventricle) LV 188/14/19, (Aorta) Ao 162/56/105 05:02 PM Catheter removed tsoummers 05:02 PM Procedure completed at 17:02 07/06/2018 [email or web address] 05:02 PM Did you address ARABELLA flow and Dominance? Yes tsoummers 05:02 PM Sign out completed: Radiation Dose 347.5 mGy, 3768.48 cGy/cm2 Fluoro Time: 2.4 Isovue 370 - 200ml contrast 79 ml given by Nora Montiel MD. Complications: None. 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 Cardiac Rehab Consult needed: YesConfirmed administered medications: Yes tsoummers 05:02 PM Isovue 370 - 200ml,1 Bottle(s) used. tsoummers 05:02 PM Arterial sheath pulled, Mynx closure device used and was Successful [id number] S/N. tsoummers 05:02 PM Estimated Blood Loss: minimal tsoummers 05:02 PM Post ECG NSR tsoummers 05:03 PM Post Blood Pressure 184/84 tsoummers 05:03 PM Information taught Cardiac Cath and Mynx tsoummers 05:03 PM Education needs Procedure, Plan of Care, Disease Process, and Responsibilities of Patient in Care tsoummers 05:03 PM Learning barriers :None tsoummers 05:03 PM Education Methods Verbal tsoummers 05:03 PM Education evaluation Able to repeat information tsoummers 05:03 PM Site status No bleeding/hematoma - Rt Groin as reported by Nikko Patterson RT (R) at 17:03 tsoummers 05:03 PM Opsite applied tsoummers 05:03 PM Plavix, Effient or Brilinta given No tsoummers 05:03 PM Family placed in consult room. tsoummers 05:04 PM Conversation between Interventionalist and CT Surgeon. tsoummers 05:04 PM NIBP STAT measurement started. 05:05 PM HR=66 bpm, KKDM=635/77 mmhg, SpO2=95 %, Resp=24 B/min 05:06 PM Time: 17:06 Nitro [place] 400 mg Sublingual Given by Neetu Walters RN [email or web address] 05:07 PM Report given to Ángela GARCIA Pt taken to Room #23. 17:07 [email or web address] 05:[address] Sellers tsoummers 05:12 PM Patient out of room: 17:12 tsoummers 05:13 PM Lesion found in Proximal LAD. Pre Stenosis: 80 Pre ARABELLA Flow: tsoummers 05:13 PM Lesion found in Mid LAD. Pre Stenosis: 80 Pre ARABELLA Flow: tsoummers 05:13 PM Lesion found in 1st Diagonal. Pre Stenosis: 65 Pre ARABELLA Flow: tsoummers 05:13 PM Lesion found in Proximal Circumflex. Pre Stenosis: 90 Pre ARABELLA Flow: tsoummers 05:14 PM Lesion found in Right PDA. Pre Stenosis: 70 Pre ARABELLA Flow: tsoummers 05:14 PM Proximal Left Anterior Descending Coronary Artery with 80% stenosis. If graft is supplying this territory, 0 % stenosis. tsoummers 05:14 PM Mid/Distal Left Anterior Descending Coronary Artery and diagonal branches with 80% stenosis. If graft is supplying this area, 0 % stenosis tsoummers 05:14 PM Circumflex, Obtuse Marginal, Left Posterior Descending, and Left Posterolateral Coronary Arteries with 90 % stenosis. If graft is supplying this area, 0 % stenosis tsoummers 05:14 PM Right Coronary, Right Posterior Descending Arteries with Right Posterolateral and Acute Marginal branches with 70 % stenosis. If graft is supplying this area, 0 % stenosis tsoummers Complications Complication None Hemodynamics Pressures Site Systolic/A Wave Diastolic/V Wave Mean AO 101 47 68 AO 174 73 115 LV 191 14 17 LV 188 14 19 AO 162 56 105 Post Procedure Information Blood Pressure: 184/84 mmHg Rhythm: NSR Post procedural instructions were given Surgery consult for CABG Closure Device Time Device Success/Fail 07/06/2018 5:03:00 PM MynxGrip Successful Site Checks Time Location Status Staff Sheath In? Note 05:03 PM Rt Groin No bleeding/hematoma Nikko Patterson RT (R) Pulses Time Site Pre-Procedure Post-Procedure Note 07/06/2018 10:05:00 AM Bilateral DP 1+ 07/06/2018 10:05:00 AM Bilateral radial 2+ Updated by Patricia Locke RN on 07/06/2018 5:17:55 PM electronically signed on 07/06/2018 5:19:15 PM with status of Final
--- NOTE | 2018-07-06 17:27 | Electrocardiograph Report ---
[place] [address] Test Date: 2018-07-04 Pat Name: Neetu Weston Department: EXAMC4 Room: 3B23 Gender: F Bindery Assistant: : 1940 Requested By: Hazel Rice Order Number: [id number] Reading MD: Charlie Alston Measurements Intervals [place] Rate: 67 P: 68 RI: 230 QRS: 69 QRSD: 97 T: 63 QT: 399 QTc: 422 Interpretive Statements Sinus rhythm with first degree AV block and atrial premature complex Electronically Signed On 07-06-2018 17:25:34 EST by Charlie Alston
--- NOTE | 2018-07-06 17:41 | Invasive Diagnostic Lab Proc ---
Name: Neetu Weston Date of Study: 07/06/2018 Date: 1940 Ht: 65.0in Medical Record#: [id number] Age: 78 Wt: 180.78lb Gender: Female BSA: 1.89 Order #: [id number] BMI: 30.12 Physicians Procedure Physician: Nora Montiel MD Referring MD: Referring MD: Staff Name [facility] Monitor 04:39 PM RomeoNeetu RN Paper Goods Machine Operator 04:39 PM Jamila Min RN Nurse 04:39 PM Nikko Patterson RT (R) Scrub 04:39 PM Indications Indication Non-Stemi Procedures Performed Procedure L HRT ARTERY/VENTRICLE ANGIO Pre-Procedure Checklist Informed consent is complete signed and on chart. H&P is on chart. ID band is on and ID verified with patient. Patient NPO for procedure The procedure was described for the patient and questions were answered. Blood Pressure: 165/67 ECG is on chart. Plan of Care Patient will tolerate the procedure without complications. Adequate level of comfort will be maintained. Hemodynamics will remain stable Patient will recover from procedure without complications. Respiratory function will be maintained. Cardiac rhythm will remain stable. Patient temperature will be maintained. Patient and/or family have verbalized understanding of the procedure. Patient Education Chief Complaint/Reason for Test: Cardiac Cath Developmental Category: Geriatric (65+ years) Developmentally Appropriate for Age: Yes Learning Barriers: None Education Needs: Procedure Education Method: Verbal Information Taught: Cardiac Cath Educational Evaluation: Able to repeat information Intravenous Access Time IV Size Location DC'd Fluid/Drip Rate Units RN 10:05 AM 18g 1 06/19" Patent On Arrival Rt Antecubital Allergies PCN,CRESTOR, SULFA, BIAXCIN Penicillins Sulfa (Sulfonamide Antibiotics) Nitrate PCN (penicillin) SULFA (sulfonamide) rosuvastatin Chocolate PCN morphine Vital Signs Time BP (mmHg) HR (bpm) O2 Sat. RR (bpm) LOC 10:05 AM 165 / 67 67 98 % 16 5 = Fully awake and oriented or at pre-proc level 04:40 PM / % 5 = Fully awake and oriented or at pre-proc level 04:40 PM / % 4 = Oriented but drowsy 04:45 PM 186 / 84 65 99 % 17 04:50 PM 181 / 78 65 97 % 23 04:55 PM 176 / 75 62 98 % 20 05:00 PM 184 / 84 66 97 % 32 05:05 PM 183 / 77 66 95 % 24 Procedural Medications Time Medication Dose Units Method Given By 04:39 PM Oxygen 2 L/min nasal cannula Neetu Walters RN 04:46 PM Versed 1 mg Intravenous Neetu Walters RN 04:46 PM Benadryl 25 mg Intravenous Neetu Walters RN 04:51 PM Lidocaine 2% 10 ml Subcutaneous Nora Montiel MD 05:06 PM Nitro [place] 400 mg Sublingual Neetu Walters RN ASA Classification: CLASS II- Mild systemic disease (i.e. well-controlled diabetes, hypertension, asthma, cigarette smoking) Jose David Score Preprocedure Postprocedure Activity 2- Moves 4 extremities sustained head lift Activity 2- Moves 4 extremities sustained head lift Circulation 2- SBP +/= 20 points of pre-anesthetic level Circulation 2- SBP +/= 20 points of pre-anesthetic level Consciousness 2- Awake and alert oriented x 3 Consciousness 2- Awake and alert oriented x 3 O2 Saturation 2- Able to maintain O2 satruation of 92% on room air O2 Saturation 2- Able to maintain O2 satruation of 92% on room air Respiratory 2- Able to deep breathe and cough well Respiratory 2- Able to deep breathe and cough well Total Score 10 Total Score 10 Contrast Agent: Isovue Diagnostic Contrast: 79 ml Total Contrast: 79 ml Fluoro Dose: 3768 mGy Procedure Log Time Note Enter By 04:39 PM CathStat 04:39 PM Pt arrived to crown and bridge dental lab technician 2 at 16:39 04:39 PM Patricia Locke RN Position: Monitor Time in: 16:39 estefany 04:39 PM Neetu Walters RN Position: Paper Goods Machine Operator Time in: 16:39 estefany 04:39 PM Jamila Min RN Position: Nurse Time in: 16:39 04:39 PM Nikko Patterson RT (R) Position: Scrub Time in: 16:39 estefany 04:39 PM Patient charges- Angio tray pack, Navilyst 3mm J, Pulse Oximetry and ACIST tubing and transducer 04:39 PM Case Delayed No [email or web address] 04:39 PM Hair removed from procedure site in procedure lab using clippers. Bilateral groin prepped with Chloraprep by Jamila Min RN, then patient was draped. Skin intact. 04:39 PM Physician arrived 16:39 [facility] 04:39 PM Meet and greet completed 04:39 PM Sign in performed according to hospital policy. Informed consent was obtained. :39 PM Procedure start 16:39 [facility] :39 PM Time: 16:39 Oxygen on at 2 L/min per nasal cannula by Neetu Walters RN [facility] 04:40 PM ASA Class CLASS II- Mild systemic disease (i.e. well-controlled diabetes, hypertension, asthma, cigarette smoking) :40 PM Time: 16:40 Patient comfortable and pain free: Yes [facility] :40 PM Time: 16:40LOC: 5 = Fully awake and oriented or at pre-proc level [facility] 04:42 PM Vitals capture started with the following parameters, Patient=Adult, Interval=5 min, Initial Vcaplfha=368 mmHg, Deflation Rate=5 mmHg, Cuff placed on Right Arm 04:44 PM Vitals capture started with the following parameters, Patient=Adult, Interval=5 min, Initial Ejmjxeur=179 mmHg, Deflation Rate=5 mmHg, Cuff placed on Right Arm 04:45 PM Recorded ECG: HR=66 Condition=Condition 1 04:45 PM HR=65 bpm, EPIP=512/84 mmhg, SpO2=99.0 %, Resp=17 B/min, EtCO2=28 mmHg 04:46 PM Time: 16:46 Versed 1 mg Intravenous Given by Neetu Walters RN [email or web address] 04:46 PM Time: 16:46 Benadryl 25 mg Intravenous Given by Neetu Walters RN [email or web address] 04:47 PM Pressure channel 1 zero failed. 04:47 PM Pressure channel 1 zeroed. 04:50 PM HR=65 bpm, DMVV=311/78 mmhg, SpO2=97.0 %, Resp=23 B/min 04:51 PM Time out was performed according to hospital policy. Conscious sedation and anesthesia was achieved (see medication log with in this report above) [facility] 04:52 PM Time: 16:51 10 ml Lidocaine 2% to right groin Subcutaneous Given by Nora Montiel MD 04:52 PM Micro-Introducer Kit utilized for sheath placement mm 04:54 PM Access obtained by percutaneous puncture. 6Fr 10cm Terumo [place] sheath placed in right Femoral artery. [id number] oumm 04:54 PM 0.035 145cm Navilyst 3mmJ wire [id number] mm 04:54 PM 5Fr FR 4 catheter inserted over the wire [facility] 04:54 PM wire removed oumm 04:55 PM HR=62 bpm, ZHUI=912/75 mmhg, SpO2=98.0 %, Resp=20 B/min, EtCO2=30 mmHg 04:55 PM Time: 16:40LOC: 4 = Oriented but drowsy oumm 04:55 PM Time: 16:40 Patient comfortable and pain free: Yes oumm 04:56 PM RCA angiography performed in multiple views. oumm 04:56 PM Recorded Pressure: Ao, HR=64, Condition=Condition 1 (Aorta) Ao 101/47/68 04:57 PM Catheter removed 04:57 PM Coronary Dominance: right oumm 04:57 PM 5Fr FL 4 catheter inserted over the wire [facility] 04:58 PM Recorded Pressure: Ao, HR=67, Condition=Condition 1 (Aorta) Ao 174/73/115 04:58 PM LCA angiography performed in multiple views. tsoumm 05:00 PM Catheter removed oumm 05:00 PM HR=66 bpm, ZUWQ=521/84 mmhg, SpO2=97.0 %, Resp=32 B/min, EtCO2=25 mmHg 05:00 PM 5Fr Pigtail catheter inserted over the wire [facility] mm 05:00 PM Catheter crossed the aortic valve and was selectively placed in the left ventricle. Pressures recorded on pullback for left heart catheterization. tsoummers 05:00 PM no injection tsoummers 05:01 PM Recorded Pressure: LV, HR=69, Condition=Condition 1 (Left Ventricle) LV 191/14/17 05:01 PM Recorded Pressure: LV, Ao, HR=67, Condition=Condition 1 (Left Ventricle) LV 188/14/19, (Aorta) Ao 162/56/105 05:02 PM Catheter removed tsoummers 05:02 PM Procedure completed at 17:02 07/06/2018 [email or web address] 05:02 PM Did you address ARABELLA flow and Dominance? Yes tsoummers 05:02 PM Sign out completed: Radiation Dose 347.5 mGy, 3768.48 cGy/cm2 Fluoro Time: 2.4 Isovue 370 - 200ml contrast 79 ml given by Nora Montiel MD. Complications: None. The patient was discharged out of the skilled laborer in stable condition. Cardiac Rehab Consult needed: YesConfirmed administered medications: Yes tsoummers 05:02 PM Isovue 370 - 200ml,1 Bottle(s) used. tsoummers 05:02 PM Arterial sheath pulled, Mynx closure device used and was Successful [id number] S/N. tsoummers 05:02 PM Estimated Blood Loss: minimal tsoummers 05:02 PM Post ECG NSR tsoummers 05:03 PM Post Blood Pressure 184/84 tsoummers 05:03 PM Information taught Cardiac Cath and Mynx tsoummers 05:03 PM Education needs Procedure, Plan of Care, Disease Process, and Responsibilities of Patient in Care tsoummers 05:03 PM Learning barriers :None tsoummers 05:03 PM Education Methods Verbal tsoummers 05:03 PM Education evaluation Able to repeat information tsoummers 05:03 PM Site status No bleeding/hematoma - Rt Groin as reported by Nikko Patterson RT (R) at 17:03 tsoummers 05:03 PM Opsite applied tsoummers 05:03 PM Plavix, Effient or Brilinta given No tsoummers 05:03 PM Family placed in consult room. tsoummers 05:04 PM Conversation between Interventionalist and CT Surgeon. tsoummers 05:04 PM NIBP STAT measurement started. 05:05 PM HR=66 bpm, SDJO=700/77 mmhg, SpO2=95 %, Resp=24 B/min 05:06 PM Time: 17:06 Nitro [place] 400 mg Sublingual Given by Neetu Walters RN [email or web address] 05:07 PM Report given to Ángela GARCIA Pt taken to Room #23. 17:07 [email or web address] 05:[address] Sellers tsoummers 05:12 PM Patient out of room: 17:12 tsoummers 05:13 PM Lesion found in Proximal LAD. Pre Stenosis: 80 Pre ARABELLA Flow: tsoummers 05:13 PM Lesion found in Mid LAD. Pre Stenosis: 80 Pre ARABELLA Flow: tsoummers 05:13 PM Lesion found in 1st Diagonal. Pre Stenosis: 65 Pre ARABELLA Flow: tsoummers 05:13 PM Lesion found in Proximal Circumflex. Pre Stenosis: 90 Pre ARABELLA Flow: tsoummers 05:14 PM Lesion found in Right PDA. Pre Stenosis: 70 Pre ARABELLA Flow: tsoummers 05:14 PM Proximal Left Anterior Descending Coronary Artery with 80% stenosis. If graft is supplying this territory, 0 % stenosis. tsoummers 05:14 PM Mid/Distal Left Anterior Descending Coronary Artery and diagonal branches with 80% stenosis. If graft is supplying this area, 0 % stenosis tsoummers 05:14 PM Circumflex, Obtuse Marginal, Left Posterior Descending, and Left Posterolateral Coronary Arteries with 90 % stenosis. If graft is supplying this area, 0 % stenosis tsoummers 05:14 PM Right Coronary, Right Posterior Descending Arteries with Right Posterolateral and Acute Marginal branches with 70 % stenosis. If graft is supplying this area, 0 % stenosis tsoummers Complications Complication None Hemodynamics Pressures Site Systolic/A Wave Diastolic/V Wave Mean AO 101 47 68 AO 174 73 115 LV 191 14 17 LV 188 14 19 AO 162 56 105 Post Procedure Information Blood Pressure: 184/84 mmHg Rhythm: NSR Post procedural instructions were given Surgery consult for CABG Closure Device Time Device Success/Fail 07/06/2018 5:03:00 PM MynxGrip Successful Site Checks Time Location Status Staff Sheath In? Note 05:03 PM Rt Groin No bleeding/hematoma Nikko Patterson RT (R) Pulses Time Site Pre-Procedure Post-Procedure Note 07/06/2018 10:05:00 AM Bilateral DP 1+ 07/06/2018 10:05:00 AM Bilateral radial 2+ Updated by Jamila Zavaleta RN on 07/06/2018 5:34:55 PM electronically signed on 07/06/2018 5:35:56 PM with status of Final
[2018-07-06] MEDS: *HR* HYDROcodone/Acet 5/325 mg TABLET PO PRN (18:00)
--- NOTE | 2018-07-06 18:00 | Electrocardiograph Report ---
[place] [address] Test Date: 2018-07-05 Pat Name: Neetu Weston Department: 113 Room: 3B23 Gender: F Hedge Trimmer: GARCIA : 1940 Requested By: Colette Smith Order Number: [id number] Reading MD: Charlie Alston Measurements Intervals [place] Rate: 60 P: 70 [place]: 268 QRS: 57 QRSD: 82 T: 67 QT: 423 QTc: 424 Interpretive Statements SINUS RHYTHM WITH FIRST DEGREE AV BLOCK Electronically Signed On 07-06-2018 17:58:47 EST by Charlie Alston
[2018-07-07 01:38] LABS: Basophils % 0.5 %; Eosinophils # 0.1 K/mcL (0.0-0.6); Eosinophils % 1.4 %; Hematocrit 35.4 % (35.3-44.9); Hemoglobin 11.4 g/dL (11.5-15.4); Immature Granulocytes % 0.3 % (0-4); Lymphocytes # 1.1 K/mcL (0.6-4.6); Lymphocytes % 16.1 %; Mean Corpuscular HGB Conc 32.2 g/dL (31.6-35.5); Mean Corpuscular Volume 99.4 fL (83.0-100.0); Mean Platelet Volume 10.2 fL (9.4-12.4); Monocytes # 0.7 K/mcL (0.0-1.3); Monocytes % 10.8 %; Neutrophils # 4.7 K/mcL (1.6-8.9); Platelet Count 187 K/mcL (140-400); Red Blood Count 3.56 M/mcL (3.82-4.97); Red Cell Distribution Width 13.6 % (11.5-14.5); Segmented Neutrophils % 70.9 %
[2018-07-07 01:47] LABS: INR 1.5; Prothrombin Time 16.9 Seconds (9.4-12.1)
[2018-07-07 01:57] LABS: Calcium 8.5 mg/dL (8.6-10.3); Potassium 4.1 mEq/L (3.5-5.1)
[2018-07-07] MEDS: Levothyroxine 25 MCG TABLET PO SCH (04:44)
[2018-07-07 07:20] VITALS: BP 130/66
[2018-07-07] MEDS: amLODIPine 5 MG TABLET PO SCH (08:16)
[2018-07-07] MEDS: Diltiazem CD (24hr) 120 MG CAPSULE PO SCH (08:16)
[2018-07-07] MEDS: Multivit/Ca/Min/Fe/FA 1 TAB TABLET PO SCH (08:16)
[2018-07-07] MEDS: Acetaminophen 325 MG TABLET PO PRN (08:19)
--- NOTE | 2018-07-07 11:16 | Cardiothoracic Consult Note ---
Date of Encounter: 07/07/18 Time of Encounter: 11:09 Assessment and Plan (1) NSTEMI (non-ST elevated myocardial infarction) Current Visit: Yes Status: Acute The patient is a 78-year-old hypertensive lady with hypercholesterolemia, known CAD, known cerebrovascular disease, and CKD, stage IIIB. She developed right subscapular pain 1 month prior to admission and had severe intrascapular pain on the day of admission. She was evaluated at [facility] emergency department and found to have elevated troponin I levels consistent with an acute NSTEMI and atrial fibrillation with RVR. She underwent a transthoracic echocardiogram and was found to have an LVEF 50-55% with moderate eccentric tricuspid regurgitation and moderate pulmonary hypertension. Subsequent cardiac catheterization revealed severe 3 vessel CAD. In particular the patient has an 80-90% mid LAD lesion severe distal disease, a 90% proximal LCx lesion, and a 90% distal RCA/PDA lesion. She has been recommended for CABG. This could be performed but is at increased risk due to her pulmonary hypertension and severe [place] diseased and small distal vessels. She has requested transfer to [facility] at the recommendation of her non-[place] traffic checker. The assessment and plan as outlined above was discussed with the patient and/or family members who expressed understanding and agreement. All questions were answered. - History of Present Illness Consult date: 07/07/18 Requesting physician: Nora Montiel Consult reason: CABG evaluation Chief complaint: NSTEMI, atrial fibrillation with RVR History of present illness: Ms. Weston is a 78 year old hypertensive lady with known CAD, proximal atrial fibrillation, hypercholesterolemia and CKD, stage IIIB. The patient underwent cardiac catheterization with PCI in 2008 at [facility] and did well until recently. She developed right subscapular pain approximately 1 month prior to admission which has increased in severity. On the day of admission she had severe intrascapular pain and was evaluated at [facility]. She was found to have elevated troponin I levels consistent with an acute NSTEMI and was in atrial fibrillation with RVR. She was admitted for further cardiac care. She underwent a transthoracic echocardiogram which revealed an LVEF 55-60% with moderate left ventricular diastolic dysfunction area did mild mitral regurgitation and moderate eccentric tricuspid regurgitation were noted as was moderate pulmonary hypertension. Subsequent cardiac catheterization revealed severe 3 vessel CAD. In particular, the patient was found to have an 80-90% mid LAD lesion with severe diffuse distal disease, a 90% ostial LCx lesion, and a 90% distal RCA/PDA lesion. She has been recommended for CABG. Past Med Surg Social Fam HX - Past Medical History Medical history: arthritis, atrial fibrillation, coronary artery disease, CVA, hyperlipidemia, hypertension, renal disease, thyroid disease, other Additional medical history: occassional hypotension. Psychiatric history: no psych history - Past Surgical History Surgical History: angioplasty/stent, other (Lumbar laminectomy 2, tonsillectomy) Additional surgical history: Back surgery x 2. - Social History Smoking Status: Never smoker Smokeless Tobacco Status: No Alcohol use: none Drug use: none Occupational status: retired Current living situation: Home - Independent Activity Level: Independent ambulation Recent Out of Country Travel Within the Last 8 Weeks: No Exposure or Possible Exposure to Illness During Travel: No - Family History Mother Living Status: Hx Family Cardiac Disorders: Yes Hx Family Respiratory Disorders: No Hx Family Cancer: No Hx Family GI Disorders: No Hx Family Endocrine Disorder: No Hx Family Neuromuscular Disorders: No Hx Family Neurologic Disorders: Yes Hx Family HEENT Disorders: No Hx Family Autoimmune Disorders: No Medications and Allergies Acetaminophen [Tylenol] 500 mg PO Q6HR PRN 06/19/15 [History] HYDROcodone/Acet 5/325 mg [[place] 5-325 mg] 0.5 tab PO Q6H PRN 06/19/15 [History] Multivitamin/Iron/Folic Acid [Centrum Complete Multivit Tab] 1 each PO QAM 06/19/15 [History] Biotin 1 mg PO DAILY 03/20/17 [History] Bisacodyl [Dulcolax] 5 mg PO DAILY PRN 03/20/17 [History] Ergocalciferol (VITAMIN D2) [Vitamin D2] 50,000 unit PO MO 03/20/17 [History] Olopatadine HCl [Pataday] 1 drop OP TID PRN 03/20/17 [History] Simethicone [Gas-X] 80 mg PO TID PRN 03/20/17 [History] Levothyroxine [Synthroid] 25 mcg PO QAM #45 tablet 03/21/17 [Rx] Metoprolol Tartrate [Lopressor] 25 mg PO BID 07/04/18 [History] Warfarin [Coumadin] 3 mg PO TUTHFRSA 07/04/18 [History] amLODIPine [Norvasc] 2.5 mg PO QPM 07/04/18 [History] Aspirin [Lo-Dose Aspirin EC] 81 mg PO QPM 07/05/18 [History] Betamethasone Dipropionate 1 appl TP BID PRN 07/05/18 [History] Diltiazem CD (24hr) [Cardizem CD] 120 mg PO DAILY 07/05/18 [History] Warfarin Sodium 4 mg PO SUMOWE 07/05/18 [History] Allergy/AdvReac Type Severity Reaction Status Date / Time Penicillins Allergy "FULL BODY Verified 07/05/18 17:09 RASH" rosuvastatin [From Crestor] Allergy See Verified 07/05/18 17:09 Comments Sulfa (Sulfonamide Allergy Rash Verified 07/05/18 17:09 Antibiotics) morphine AdvReac Mild See Verified 07/05/18 17:09 Comments All Systems Review: The remainder of the systems were reviewed and are negative Physical Examination Vital Signs, Last 4 Hours Temp Pulse Resp BP Pulse Ox 07/07/18 07:20 98.4 F 66 16 130/66 94 General: Conversant, No Apparent Distress HEENT: Atraumatic, Normocephaly, Trachea midline Neck: No JVD, Normal carotid pulses Cardiac: Reg Rate and Rhythm, Normal S1 and S2, No Murmur Lungs: Normal Breath Sounds, No Wheeze, Rales, Rhonchi Neuro: Alert and responsive, No focal deficits noted Vascular: Normal capillary refill Abdomen: Soft, Non-tender Skin: No rashes noted on visualized skin Musculoskeletal: No Chest Wall Tenderness Extremities: No Clubbing, No Cyanosis, No Edema Results 07/07/18 01:28 07/07/18 01:28 Lab Results, Last 24 hours 07/07/18 07/07/18 07/07/18 01:28 01:28 01:28 WBC 6.6 Hgb 11.4 L Hct 35.4 Plt Count 187 INR 1.5 Sodium 138 Potassium 4.1 Chloride 104 Carbon Dioxide 27 BUN 18 Creatinine 1.19 Glucose 117 H Calcium 8.5 L - Imaging Chest Xray: image reviewed (Mild cardiomegaly. Left basilar atelectasis.) Consult Discharge Plan - Plan Referrals: Dereje Coughlin Jr, MD [Primary Care Provider] -
[2018-07-07] MEDS: Heparin 25,000 UNIT/500 ML D5W 25,000 UNIT/500 ML BAG IVC SCH (11:57)
--- NOTE | 2018-07-07 11:59 | Discharge Summary ---
- NOTES TO OUTPATIENT PROVIDER Notes to Outpatient Provider: Presented with non-STEMI underwent cardiac catheter had severe three-vessel disease transferred to [place] for CABG Orders not resulted at time of discharge: Pending orders 07/06/18 09:50 CL Cardiac Catheterization [CL] Routine 07/06/18 18:20 EV echocardiogram Routine 07/07/18 16:12 Heparin anti-factor XA UFH [COAG] Timed Date of Encounter: 07/07/18 Time of Encounter: 11:57 - Discharge Diagnosis (1) NSTEMI (non-ST elevated myocardial infarction) Priority: Primary Status: Acute (2) Pulmonary nodule Priority: Secondary Status: Acute (3) Atrial fibrillation Priority: Secondary Status: Acute Qualifiers: Atrial fibrillation type: paroxysmal Qualified Code(s): I48.0 - Paroxysmal atrial fibrillation (4) CAD (coronary artery disease) Priority: Secondary Status: Chronic Qualifiers: Coronary Disease-Associated Artery/Lesion type: [place] artery [place] vs. transplanted heart: [place] heart Associated angina: without angina Qualified Code(s): I25.10 - Atherosclerotic heart disease of [place] coronary artery without angina pectoris (5) Chronic diastolic (congestive) heart failure Priority: Secondary Status: Chronic (6) Chronic kidney disease (CKD), stage III (moderate) Priority: Secondary Status: Chronic (7) HTN (hypertension) Priority: Secondary Status: Chronic Qualifiers: Hypertension type: essential hypertension Qualified Code(s): I10 - Essential (primary) hypertension (8) Hypothyroidism Priority: Secondary Status: Chronic Qualifiers: Hypothyroidism type: acquired Qualified Code(s): E03.9 - Hypothyroidism, unspecified (9) Abnormal CT of the chest Priority: Secondary Status: Acute (10) Pancreatic cyst Priority: Secondary Status: Acute Hospital course: Ms. Weston is a 78 year old female past medical history of CAD known history of vascular disease PCKD stage III hypercholesterolemia paroxysmal atrial fibrillation on Coumadin chronic back pain. Presented to [facility] ED with complaints of severe intrascapular pain she had an elevated troponin consistent with acute non-STEMI. EKG with sinus rhythm with no ST-T wave abnormality Coumadin was held and patient was started on heparin drip. Cardiac echo was completed which did show EF of 50-55% with moderate eccentric tricuspid regurgitation and moderate pulmonary hypertension moderate left ventricular diastolic dysfunction normal right ventricular structure and function moderately dilated left atrium She underwent a cardiac catheterization which revealed severe 3 vessel CAD she had 80-90% mid LAD lesion severe distal disease 90% proximal LCX lesion and distal RCA/PDA 90% lesion. She was recommended for CABG, cardiothoracic surgery did see the patient- according to note "could be performed but is at increased risk due to pulmonary hypertension and severe [place] disease and small distal vessels"-radiologist is from [place] as well I did speak with [place] transfer center and cardiothoracic nurse practitioner Radha- awaiting bed assignment. Currently patient is chest [id number] with heparin drip aspirin and statin beta abraham-she is hemodynamically stable at this time is ready for transfer to [place] for CABG - Time Spent with Patient Total time spent providing and/or coordinating discharge services: - Discharge Medications Home Medications: Acetaminophen [Tylenol] 500 mg PO Q6HR PRN 06/19/15 [History] HYDROcodone/Acet 5/325 mg [[place] 5-325 mg] 0.5 tab PO Q6H PRN 06/19/15 [History] Multivitamin/Iron/Folic Acid [Centrum Complete Multivit Tab] 1 each PO QAM 06/19/15 [History] Biotin 1 mg PO DAILY 03/20/17 [History] Bisacodyl [Dulcolax] 5 mg PO DAILY PRN 03/20/17 [History] Ergocalciferol (VITAMIN D2) [Vitamin D2] 50,000 unit PO MO 03/20/17 [History] Olopatadine HCl [Pataday] 1 drop OP TID PRN 03/20/17 [History] Simethicone [Gas-X] 80 mg PO TID PRN 03/20/17 [History] Levothyroxine [Synthroid] 25 mcg PO QAM #45 tablet 03/21/17 [Rx] Metoprolol Tartrate [Lopressor] 25 mg PO BID 07/04/18 [History] Warfarin [Coumadin] 3 mg PO TUTHFRSA 07/04/18 [History] amLODIPine [Norvasc] 2.5 mg PO QPM 07/04/18 [History] Aspirin [Lo-Dose Aspirin EC] 81 mg PO QPM 07/05/18 [History] Betamethasone Dipropionate 1 appl TP BID PRN 07/05/18 [History] Diltiazem CD (24hr) [Cardizem CD] 120 mg PO DAILY 07/05/18 [History] Warfarin Sodium 4 mg PO SUMOWE 07/05/18 [History] Allergies/Adverse Reactions: Allergy/AdvReac Type Severity Reaction Status Date / Time Penicillins Allergy "FULL BODY Verified 07/05/18 17:09 RASH" rosuvastatin [From Crestor] Allergy See Verified 07/05/18 17:09 Comments Sulfa (Sulfonamide Allergy Rash Verified 07/05/18 17:09 Antibiotics) morphine AdvReac Mild See Verified 07/05/18 17:09 Comments Date of admission: 07/05/18 14:17 Primary care physician: Dereje Coughlin Jr, MD Consults: 07/05/18 00:48 Consult to Cardiology [CONS] Routine Comment: Consulting Provider: Cardiology Radha Reason for Consult: Pt. is 69 yo female admitted for sharp back pain in middle of back, weakness, and tachycardia. Reported nausea but no SOB. Reports similar pain in 2008 prior to having her stents placed. CTA showed no dissection. EKG showed no ST-T wave abnormalities. Initial troponin 0.04. Second 0.20. Pt. denies CP. Last Echo on 03/21/18. Last nuclear stress test on 06/28/15. Afib on anticoagulation. Risk factors: CAD, previous CVA, HLD, HTN, and renal disease. Call Completed: No 07/07/18 07:54 Consult to Cardiothoracic Surgery [CONS] Routine Consulting Provider: Cardiothoracic Surgery Radha Reason for Consult: 3vCAD, CABG eval Time Notified: 15:07 Call Completed: Yes 07/07/18 08:18 Consult to Cardiac Rehabilitation-Phase1 [CONS] Routine Comment: Reason for Consult: NSTEMI, CABG eval Call Completed: No Discharging clinician: Colette Smith Anticipated date of discharge: 07/07/18 - Constitutional Vitals: Temp Pulse Resp BP Pulse Ox 98.4 F 66 16 130/66 94 07/07/18 07:20 07/07/18 07:20 07/07/18 07:20 07/07/18 07:20 07/07/18 07:20 General appearance: Present: A&O X 3 Exam: General: Well developed elderly female no distress Skin: Warm and supple. HEENT: Moist mucous membranes. No conjunctivae pallor. Neck: No lymphadenopathy. No JVD. No carotid bruits. No palpable thyroid. Chest: Normal thoracic expansion. Normal breath sounds. Clear to auscultation. Heart: Irregularly irregular. Abdomen: Non-distended, soft and non-tender to palpation. No peritoneal reaction. Extremities: pedal pulses present bilat - no edema Neurological: Awake, alert and oriented to person, place and time. No focal deficits. Psych: Affect appropriate. - Patient Status Disposition: Transfer Critical Access Hosp Condition: Fair Functional capacity at discharge: independent ambulation Overall status at discharge: patient is not back to baseline - Discharge Instructions Follow Up With: Dereje Coughlin Jr, MD [Primary Care Provider] - - Diet and Activity Activity: increase activity as tolerated Diet: advance to your usual diet
--- NOTE | 2018-07-07 12:22 | Cardiology Progress Note ---
Date of Encounter: 07/07/18 Time of Encounter: 12:00 Assessment and Plan (1) NSTEMI (non-ST elevated myocardial infarction) Current Visit: Yes Status: Acute Patient presented with atypical/typical chest pain symptoms with elevated troponin, concern for NSTEMI. [facility] 07/06/18: severe 3v CAD, CABG evaluation recommended. TTE 07/05/18: LVEF 55-60%, moderate LVDD, basal sigmoid septum, normal RV structure and function, moderately dilated LA, mild MR, mild-moderate eccentric TR, moderate PH, normal wall motion CTS consulted, appreciate recommendations; however patient has requested transfer to [facility] for CABG. Discussed with primary service, who will facilitate transfer. Continue asa, statin, BB, and heparin gtt. Recommend patient to follow-up in the outpatient with outside Teletypewriter Operator. (2) Atrial fibrillation Current Visit: No Status: Acute Hx of PAF on coumadin. Currently in NSR, avg HR=60 SR overnight. Coumadin has been held, continue Heparin gtt. Qualifiers: Atrial fibrillation type: paroxysmal Qualified Code(s): I48.0 - Paroxysmal atrial fibrillation Discussion w patient/family: The assessment and plan as outlined above was discussed with the patient and/or family members who expressed understanding and agreement. All questions were answered. Thank you for involving us in the care of your patient. Please call with any questions. The patient was discussed and reviewed with Dr. Sanon; changes to be made accordingly. Subjective Principal diagnosis: NSTEMI Interval history: Seen and examined. No recurrent chest/back pain since admission. No shortness of breath or abnormal bleeding reported. No issues with cath site. Objective General: Conversant, No Apparent Distress HEENT: Atraumatic, Normocephaly, Mucus Membranes Moist Cardiac: Reg Rate and Rhythm, Normal S1 and S2 Lungs: Normal Breath Sounds Neuro: Alert and responsive Abdomen: Soft Skin: No rashes noted on visualized skin Musculoskeletal: No Chest Wall Tenderness Extremities: No Edema, Normal Pulses Results 07/07/18 01:28 07/07/18 01:28 Lab Results 07/07/18 07/07/18 07/07/18 01: 01:28 01:28 WBC 6.6 Hgb 11.4 L Hct 35.4 Plt Count 187 INR 1.5 Sodium 138 Potassium 4.1 Chloride 104 Carbon Dioxide 27 BUN 18 Creatinine 1.19 Glucose 117 H Calcium 8.5 L Active Medications Acetaminophen (Tylenol) 650 mg PO Q6HR PRN PRN Reason: Mild Pain/Fever Stop: 01/03/19 18:01 Last Admin: 07/07/18 08:19 Dose: 650 mg Hydrocodone Bitart/Acetaminophen ([place] 5-325 Mg) 1 tab PO Q6HR PRN PRN Reason: Moderate Pain Stop: 01/03/19 18:01 Last Admin: 07/06/18 18:00 Dose: 1 tab Amlodipine Besylate (Norvasc) 2.5 mg PO DAILY [facility]; Protocol Stop: 01/04/19 09:01 Last Admin: 07/07/18 08:16 Dose: Not Given Aspirin (Aspirin Ec) 81 mg PO QPM [facility] Stop: 01/06/19 18:01 Diltiazem HCl (Cardizem Cd) 120 mg PO DAILY [facility] Stop: 01/04/19 09:01 Last Admin: 07/07/18 08:16 Dose: 120 mg Heparin Sodium (Porcine) (Heparin) 4,000 unit IVP Q6HR PRN PRN Reason: SEE COMMENTS Stop: 01/05/19 05:38 Heparin Sodium (Porcine) (Heparin) 2,000 unit IVP Q6H PRN PRN Reason: SEE COMMENTS Stop: 01/05/19 05:38 Last Admin: 07/07/18 04:04 Dose: 2,000 unit Heparin Sodium/Dextrose (Heparin 25,000 Unit/500 Ml D5w) 25,000 unit in 500 mls @ 19.776 mls/hr IVC .Q24H [facility]; Protocol Stop: 01/05/19 05:46 Last Admin: 07/07/18 11:57 Dose: 10.86 unit/kg/hr, 17.9 mls/hr Levothyroxine Sodium (Synthroid) 25 mcg PO [id number] [facility] Stop: 01/04/19 06:31 Last Admin: 07/07/18 04:44 Dose: Not Given Levothyroxine Sodium (Synthroid) 50 mcg PO [id number] [facility] Stop: 01/05/19 06:31 Last Admin: 07/06/18 05:10 Dose: 50 mcg Metoprolol Tartrate (Lopressor) 25 mg PO BID [facility] Stop: 01/03/19 21:01 Last Admin: 07/07/18 08:16 Dose: 25 mg Multivitamins/Calcium (Thera M Plus) 1 tab PO QAM TAINA Stop: 01/04/19 09:01 Last Admin: 07/07/18 08:16 Dose: 1 tab Naloxone HCl (Narcan) 0.4 mg IVP Q2MIN PRN PRN Reason: SEE COMMENTS Stop: 01/03/19 18:01 Nitroglycerin (Nitroglycerin) 0.4 mg SL Q5MIN PRN PRN Reason: Chest Pain Stop: 01/03/19 15:33 Last Admin: 07/04/18 16:09 Dose: 0.4 mg - Imaging and Cardiology Echo: report reviewed Cardiac cath: report reviewed Other Results: 12 hour tele: avg HR=62 SR. - EKG Interpretation EKG results cardiology: personally reviewed Consult Discharge Plan - Plan Referrals: Dereje Coughlin Jr, MD [Primary Care Provider] -
[2018-07-07] MEDS ORDERED: Aspirin Enteric Coated 81 MG Tablet PO SCH (18:00)
== END 2018-07-07 14:32 | disposition critical access hospital (66) | DRG 281 ==
LOC: 3BNU 15:16 → EMEROOARM 15:16 → 3BNU 18:37
PROVIDERS: ADMIT Hospitalist; ATTEND Hospitalist

== ENCOUNTER 2020-11-10 06:38 | Observation (INO) ==
[2020-11-10] MEDS ORDERED: Isovue-370 500 ML BOTTLE IVP ONE (06:42)
[2020-11-10 07:06] LABS: Hematocrit 38.5 % (35.3-44.9); Mean Corpuscular HGB Conc 31.2 g/dL (31.6-35.5); Mean Corpuscular Volume 102.7 fL (83.0-100.0); Mean Platelet Volume 10.4 fL (9.4-12.4); Platelet Count 178 K/mcL (140-400); Red Blood Count 3.75 M/mcL (3.82-4.97); Red Cell Distribution Width 13.8 % (11.5-14.5); White Blood Count 9.3 K/mcL (4.3-11.1)
[2020-11-10 07:17] LABS: INR 2.3; Prothrombin Time 26.4 Seconds (9.4-12.1)
[2020-11-10 07:19] LABS: Activated Partial Thrombo Time 29.5 Seconds (26.0-36.0)
[2020-11-10 07:30] LABS: BUN/Creatinine Ratio 21 (6-26); Blood Urea Nitrogen 21 mg/dL (8-23); Calcium 9.4 mg/dL (8.6-10.3); Carbon Dioxide 24 mEq/L (23-29); Chloride 108 mEq/L (98-107); Glucose 140 mg/dL (70-105); Osmolality,Calculated 295 (280-300); Potassium 4.2 mEq/L (3.5-5.1); Sodium 140 mEq/L (136-145); Troponin I < 0.03 ng/mL (< 0.04); eGFR For African Americans > 60 (> 60); eGFR For Non-African Americans 54 (> 60)
[2020-11-10] MEDS ORDERED: Naloxone 0.4 MG/ML INJ IVP PRN (08:32)
[2020-11-10] MEDS ORDERED: Ondansetron 4 MG/2 ML VIAL IVP PRN (08:32)
[2020-11-10] MEDS ORDERED: Acetaminophen 325 MG TABLET PO PRN (08:32)
[2020-11-10] MEDS ORDERED: Nitroglycerin 0.4 MG TAB.SUBL SL PRN (16:56)
[2020-11-10] MEDS ORDERED: *HR* HYDROcodone/Acet 5/325 mg TABLET PO PRN (16:56)
[2020-11-10] MEDS ORDERED: Warfarin perPT PO PRN (18:00)
[2020-11-10] MEDS ORDERED: Aspirin Enteric Coated 81 MG Tablet PO SCH (18:00)
[2020-11-10] MEDS ORDERED: *HR* Warfarin 3 MG TABLET PO ONE (19:15)
[2020-11-10] MEDS ORDERED: Latanoprost 2.5 ML BOTTLE BOTH EYES SCH (21:00)
[2020-11-10 22:01] LABS: Bilirubin,Urine Negative (Negative); Blood,Urine Negative (Negative); Clarity,Urine Clear (Clear); Color,Urine Light-Yellow (Yellow); Glucose,Urine (UA) Normal (Normal); Ketones,Urine Negative (Negative); Leukocyte Esterase,Urine Negative (Negative); Nitrite,Urine Negative (Negative); PH,Urine 7.5 pH Units (5.0-8.0); Protein,Urine 30 mg/dL (Neg-Trace); RBC,Urine 0-3 per hpf (0-3); Specific Gravity,Urine 1.024 (1.010-1.025); Squamous Epithelial Cell,Urine Few per hpf (None-Few); Urobilinogen,Urine Normal (Normal); WBC,Urine 0-3 per hpf (0-3)
[2020-11-10 22:16] LABS: Amphetamine Screen,Urine Negative ng/mL (Cutoff=1000); Barbiturate Screen,Urine Negative ng/mL (Cutoff=200); Benzodiazepines Screen,Urine Negative ng/mL (Cutoff=200); Cannabinoid Screen,Urine Negative ng/mL (Cutoff = 50); Cocaine Screen,Urine Negative ng/mL (Cutoff= 300); Opiate Screen,Urine Positive ng/mL (Cutoff=300); Phencyclidine Screen,Urine Negative ng/mL (Cutoff=25)
[2020-11-11] MEDS ORDERED: Levothyroxine 25 MCG TABLET PO SCH (06:30)
[2020-11-11 07:16] VITALS: BP 155/71
[2020-11-11 07:30] LABS: Hematocrit 37.4 % (35.3-44.9); Hemoglobin 11.9 g/dL (11.5-15.4); Mean Corpuscular HGB Conc 31.8 g/dL (31.6-35.5); Mean Corpuscular Hemoglobin 32.1 pg (28.0-33.3); Mean Corpuscular Volume 100.8 fL (83.0-100.0); Mean Platelet Volume 10.1 fL (9.4-12.4); Platelet Count 189 K/mcL (140-400); Red Blood Count 3.71 M/mcL (3.82-4.97); Red Cell Distribution Width 13.9 % (11.5-14.5); White Blood Count 9.4 K/mcL (4.3-11.1)
[2020-11-11 07:40] LABS: INR 2.2; Prothrombin Time 25.3 Seconds (9.4-12.1)
[2020-11-11 07:51] LABS: BUN/Creatinine Ratio 25 (6-26); Blood Urea Nitrogen 22 mg/dL (8-23); Calcium 8.8 mg/dL (8.6-10.3); Carbon Dioxide 23 mEq/L (23-29); Chloride 109 mEq/L (98-107); Chol/HDL Ratio 2.1 (0-4.9); Cholesterol 108 mg/dL (< 200); Glucose 119 mg/dL (70-105); HDL Cholesterol 51 mg/dL (40-59); LDL Cholesterol,Calculated 41 mg/dL (< 100); Magnesium 2.2 mg/dL (1.6-2.6); Osmolality,Calculated 294 (280-300); Potassium 3.8 mEq/L (3.5-5.1); Sodium 140 mEq/L (136-145); Triglycerides 82 mg/dL (< 150); eGFR For African Americans > 60 (> 60); eGFR For Non-African Americans > 60 (> 60)
[2020-11-11] MEDS ORDERED: amLODIPine 5 MG TABLET PO ONE (08:34)
[2020-11-11] MEDS ORDERED: DilTIAZem CD (24hr) 120 MG CAP.ER.24H PO SCH (09:00)
[2020-11-11] MEDS ORDERED: Simethicone 80 MG TAB.CHEW PO SCH (09:00)
[2020-11-11] MEDS ORDERED: amLODIPine 5 MG TABLET PO SCH ×2 (09:00)
[2020-11-11 10:05] LABS: Estimated Average Glucose 120 mg/dl; Hemoglobin A1C 5.8 %
[2020-11-11] MEDS ORDERED: *HR* Warfarin 3 MG TABLET PO ONE (18:00)
[2020-11-13] MEDS ORDERED: Ergocalciferol (VIT D2) 50,000 UNIT (1.25MG) CAP PO SCH (09:00)
== END 2020-11-11 11:25 | disposition home or self-care (01) ==
LOC: 2ANU 06:38 → EMEROOARM 06:38 → SUATTDRO 08:17 → 2ANU 09:31
PROVIDERS: ADMIT Internal Medicine; ATTEND Internal Medicine

== ENCOUNTER 2021-07-30 19:56 | Inpatient (IN) ==
[2021-07-30] MEDS ORDERED: Isovue-370 500 ML BOTTLE IVP ONE (21:07)
[2021-07-30] MEDS ORDERED: Ondansetron 4 MG/2 ML VIAL IVP PRN (21:08)
[2021-07-30] MEDS ORDERED: 0.9 % Sodium Chloride 1,000 ML IV ONE (21:08)
[2021-07-30] MEDS ORDERED: MetroNIDAZOLE 500 MG/100 ML 500 MG/100 ML BAG IVPB ONE (21:09)
[2021-07-30] MEDS ORDERED: cefTRIAXone 1,000 MG in 0.9 % Sodium Chloride Mini Bag 100 ML IVPB ONE (21:10)
[2021-07-30 21:36] LABS: Basophils % 0.2 %; Eosinophils % 0.1 %; Hematocrit 41.3 % (35.3-44.9); Hemoglobin 13.1 g/dL (11.5-15.4); Immature Granulocytes % 1.2 % (0-4); Lymphocytes # 0.5 K/mcL (0.6-4.6); Lymphocytes % 3.5 %; Mean Corpuscular HGB Conc 31.7 g/dL (31.6-35.5); Mean Corpuscular Hemoglobin 33.1 pg (28.0-33.3); Mean Corpuscular Volume 104.3 fL (83.0-100.0); Mean Platelet Volume 9.8 fL (9.4-12.4); Monocytes # 0.9 K/mcL (0.0-1.3); Monocytes % 6.6 %; Neutrophils # 11.7 K/mcL (1.6-8.9); Platelet Count 177 K/mcL (140-400); Red Blood Count 3.96 M/mcL (3.82-4.97); Red Cell Distribution Width 13.7 % (11.5-14.5); Segmented Neutrophils % 88.4 %; White Blood Count 13.3 K/mcL (4.3-11.1)
[2021-07-30 21:47] LABS: Bilirubin,Urine Negative (Negative); Blood,Urine Trace (Negative); Clarity,Urine Clear (Clear); Color,Urine Light-Orange (Yellow); Glucose,Urine (UA) Normal (Normal); Ketones,Urine Trace mg/dL (Negative); Leukocyte Esterase,Urine Trace (Negative); Mucus,Urine Many per lpf (None-Few); Nitrite,Urine Negative (Negative); PH,Urine 5.5 pH Units (5.0-8.0); Protein,Urine 100 mg/dL (Neg-Trace); Specific Gravity,Urine > 1.030 (1.010-1.025); Squamous Epithelial Cell,Urine Few per hpf (None-Few); Urobilinogen,Urine Normal (Normal)
[2021-07-30 22:00] LABS: Albumin 3.4 g/dL (3.5-5.7); Albumin/Globulin Ratio 1.2 (1.1-2.2); Bilirubin,Direct 0.1 mg/dL (0.0-0.2); Bilirubin,Indirect 0.4 mg/dL (0.0-1.0); Bilirubin,Total 0.5 mg/dL (0.3-1.0); Calcium 8.5 mg/dL (8.6-10.3); Globulin 2.9 g/dL (2.4-3.5); Potassium 4.3 mEq/L (3.5-5.1); Total Protein 6.3 g/dL (6.4-8.9); Troponin I 0.03 ng/mL (< 0.04)
[2021-07-30 22:19] LABS: Influenza A PCR Negative (Negative); Influenza B PCR Negative (Negative); Resp. Syncytial Virus PCR Negative (Negative)
[2021-07-30 22:20] LABS: SARS-CoV-2 by PCR (In House) Negative (Negative)
[2021-07-30] MEDS: DilTIAZem 50 MG/50 ML IV.SOLN IVC SCH (23:35)
[2021-07-31] MEDS ORDERED: Naloxone 0.4 MG/ML INJ IVP PRN (00:13)
[2021-07-31] MEDS ORDERED: Acetaminophen 325 MG TABLET PO PRN (00:13)
[2021-07-31 00:26] LABS: INR 4.2
[2021-07-31] MEDS ORDERED: 0.9 % Sodium Chloride 1,000 ML IV ONE (00:27)
[2021-07-31 00:29] LABS: Activated Partial Thrombo Time 36.3 Seconds (26.0-36.0)
[2021-07-31 00:31] LABS: Prothrombin Time 46.3 Seconds (9.4-12.1)
[2021-07-31] MEDS ORDERED: D5% in Water 1,000 ML IVC PRN (00:49)
[2021-07-31] MEDS ORDERED: *HR* Dextrose 50 % in Water (Syg) 50 ML SYRINGE IVP PRN (00:49)
[2021-07-31] MEDS ORDERED: Dextrose Gel 15 GM/37.5 ML TUBE PO PRN ×2 (00:49)
[2021-07-31] MEDS ORDERED: Saliva Stimulant 44.3ml BOTTLE PO PRN (02:06)
[2021-07-31] MEDS ORDERED: *HR* Promethazine 25 MG/ML VIAL IM PRN (02:23)
[2021-07-31] MEDS ORDERED: *HR* OxyCODONE Immed Rel 5 MG TABLET PO PRN (02:33)
[2021-07-31] MEDS: DilTIAZem 50 MG/50 ML IV.SOLN IVC SCH ×3 (04:00→18:20)
[2021-07-31 05:01] LABS: Basophils % 0.2 %; Hematocrit 38.8 % (35.3-44.9); Hemoglobin 12.1 g/dL (11.5-15.4); Immature Granulocytes % 0.7 % (0-4); Lymphocytes # 0.9 K/mcL (0.6-4.6); Lymphocytes % 6.3 %; Mean Corpuscular HGB Conc 31.2 g/dL (31.6-35.5); Mean Corpuscular Hemoglobin 32.9 pg (28.0-33.3); Mean Corpuscular Volume 105.4 fL (83.0-100.0); Mean Platelet Volume 9.9 fL (9.4-12.4); Monocytes # 0.9 K/mcL (0.0-1.3); Monocytes % 6.5 %; Neutrophils # 11.8 K/mcL (1.6-8.9); Platelet Count 166 K/mcL (140-400); Red Blood Count 3.68 M/mcL (3.82-4.97); Red Cell Distribution Width 13.6 % (11.5-14.5); Segmented Neutrophils % 86.3 %; White Blood Count 13.7 K/mcL (4.3-11.1)
[2021-07-31 05:09] LABS: INR 4.2
[2021-07-31 05:18] LABS: Alanine Aminotransferase 6 Units/L (7-52); Albumin 3.1 g/dL (3.5-5.7); Albumin/Globulin Ratio 1.2 (1.1-2.2); Alkaline Phosphatase 68 Units/L (34-104); Aspartate Amino Transferase 14 Units/L (13-39); BUN/Creatinine Ratio 14 (6-26); Bilirubin,Total 0.4 mg/dL (0.3-1.0); Blood Urea Nitrogen 13 mg/dL (8-23); Calcium 7.8 mg/dL (8.6-10.3); Carbon Dioxide 19 mEq/L (23-29); Chloride 108 mEq/L (98-107); Globulin 2.5 g/dL (2.4-3.5); Glucose 108 mg/dL (70-105); Magnesium 1.8 mg/dL (1.6-2.6); Osmolality,Calculated 281 (280-300); Phosphorous 2.9 mg/dL (2.7-4.5); Potassium 4.1 mEq/L (3.5-5.1); Sodium 135 mEq/L (136-145); Total Protein 5.6 g/dL (6.4-8.9); eGFR For African Americans > 60 (> 60); eGFR For Non-African Americans 57 (> 60)
[2021-07-31] MEDS: Ringers Solution, Lactated 1,000 ML IVC SCH ×3 (05:19→18:20)
[2021-07-31] MEDS: DilTIAZem CD (24hr) 120 MG CAP.ER.24H PO SCH (08:37)
[2021-07-31] MEDS: Lactobacillus 1 EACH CAP.SPRINK PO SCH ×2 (08:37→20:30)
[2021-07-31] MEDS ORDERED: Ertapenem 1,000 MG in 0.9 % Sodium Chloride Mini Bag 100 ML IVPB SCH (09:00)
[2021-07-31] MEDS ORDERED: 0.9 % Sodium Chloride 1,000 ML IVC SCH ×2 (12:15→18:00)
[2021-07-31] MEDS ORDERED: levoFLOXacin 750 MG/150 ML 750 MG/150 ML BAG IVPB SCH (12:16)
[2021-07-31] MEDS: *HR* OxyCODONE Oral Soln 5 MG/5 ML UD.LIQ PO PRN ×2 (13:24→19:37)
[2021-07-31] MEDS: MetroNIDAZOLE 500 MG/100 ML 500 MG/100 ML BAG IVPB SCH (15:35)
[2021-07-31] MEDS ORDERED: Warfarin perPT PO PRN (18:00)
[2021-08-01] MEDS: MetroNIDAZOLE 500 MG/100 ML 500 MG/100 ML BAG IVPB SCH ×3 (00:38→17:21)
[2021-08-01 02:14] LABS: Basophils % 0.3 %; Eosinophils % 0.4 %; Hematocrit 35.6 % (35.3-44.9); Hemoglobin 11.3 g/dL (11.5-15.4); Immature Granulocytes % 0.5 % (0-4); Lymphocytes # 0.7 K/mcL (0.6-4.6); Lymphocytes % 6.1 %; Mean Corpuscular HGB Conc 31.7 g/dL (31.6-35.5); Mean Corpuscular Hemoglobin 32.9 pg (28.0-33.3); Mean Corpuscular Volume 103.8 fL (83.0-100.0); Mean Platelet Volume 10.2 fL (9.4-12.4); Monocytes # 0.8 K/mcL (0.0-1.3); Neutrophils # 9.4 K/mcL (1.6-8.9); Platelet Count 188 K/mcL (140-400); Red Blood Count 3.43 M/mcL (3.82-4.97); Red Cell Distribution Width 13.6 % (11.5-14.5); Segmented Neutrophils % 85.7 %; White Blood Count 10.9 K/mcL (4.3-11.1)
[2021-08-01 02:15] LABS: INR 3.7; Prothrombin Time 40.8 Seconds (9.4-12.1)
[2021-08-01 02:29] LABS: BUN/Creatinine Ratio 16 (6-26); Blood Urea Nitrogen 13 mg/dL (8-23); Calcium 7.8 mg/dL (8.6-10.3); Carbon Dioxide 21 mEq/L (23-29); Chloride 106 mEq/L (98-107); Glucose 83 mg/dL (70-105); Osmolality,Calculated 281 (280-300); Potassium 4.1 mEq/L (3.5-5.1); Sodium 136 mEq/L (136-145); eGFR For African Americans > 60 (> 60); eGFR For Non-African Americans > 60 (> 60)
[2021-08-01] MEDS: Ringers Solution, Lactated 1,000 ML IVC SCH (06:27)
[2021-08-01] MEDS: DilTIAZem CD (24hr) 120 MG CAP.ER.24H PO SCH (08:06)
[2021-08-01] MEDS: Lactobacillus 1 EACH CAP.SPRINK PO SCH ×2 (08:06→20:53)
[2021-08-01] MEDS: *HR* OxyCODONE Oral Soln 5 MG/5 ML UD.LIQ PO PRN ×2 (08:17→20:52)
[2021-08-01] MEDS: DilTIAZem 50 MG/50 ML IV.SOLN IVC SCH (09:01)
[2021-08-01] MEDS: levoFLOXacin 750 MG/150 ML 750 MG/150 ML BAG IVPB SCH (16:28)
[2021-08-01] MEDS: Aspirin Enteric Coated 81 MG Tablet PO SCH (17:21)
[2021-08-01] MEDS: Latanoprost 2.5 ML BOTTLE BOTH EYES SCH (21:42)
[2021-08-02] MEDS: MetroNIDAZOLE 500 MG/100 ML 500 MG/100 ML BAG IVPB SCH ×3 (00:14→16:58)
[2021-08-02 02:28] LABS: Prothrombin Time 44.6 Seconds (9.4-12.1)
[2021-08-02] MEDS: Levothyroxine 25 MCG TABLET PO SCH (06:29)
[2021-08-02] MEDS: DilTIAZem CD (24hr) 120 MG CAP.ER.24H PO SCH (08:32)
[2021-08-02] MEDS: Lactobacillus 1 EACH CAP.SPRINK PO SCH ×2 (08:34→20:24)
[2021-08-02] MEDS ORDERED: Levothyroxine 25 MCG TABLET PO SCH (09:00)
[2021-08-02] MEDS: *HR* OxyCODONE Oral Soln 5 MG/5 ML UD.LIQ PO PRN ×2 (09:52→17:09)
[2021-08-02] MEDS ORDERED: Evolocumab [Repatha Sureclick] 140 MG/ML Pen.Injctr SQ SCH (13:15)
[2021-08-02] MEDS: levoFLOXacin 750 MG/150 ML 750 MG/150 ML BAG IVPB SCH (15:42)
[2021-08-02] MEDS: Aspirin Enteric Coated 81 MG Tablet PO SCH (16:58)
[2021-08-02] MEDS: Latanoprost 2.5 ML BOTTLE BOTH EYES SCH (20:24)
[2021-08-03] MEDS: *HR* OxyCODONE Oral Soln 5 MG/5 ML UD.LIQ PO PRN ×2 (00:06→08:18)
[2021-08-03] MEDS: MetroNIDAZOLE 500 MG/100 ML 500 MG/100 ML BAG IVPB SCH (00:08)
[2021-08-03 02:19] LABS: Hematocrit 34.5 % (35.3-44.9); Hemoglobin 11.1 g/dL (11.5-15.4); Mean Corpuscular HGB Conc 32.2 g/dL (31.6-35.5); Mean Corpuscular Hemoglobin 33.5 pg (28.0-33.3); Mean Corpuscular Volume 104.2 fL (83.0-100.0); Mean Platelet Volume 9.9 fL (9.4-12.4); Platelet Count 214 K/mcL (140-400); Red Blood Count 3.31 M/mcL (3.82-4.97); Red Cell Distribution Width 13.6 % (11.5-14.5); White Blood Count 6.7 K/mcL (4.3-11.1)
[2021-08-03 02:29] LABS: BUN/Creatinine Ratio 19 (6-26); Blood Urea Nitrogen 16 mg/dL (8-23); Calcium 7.9 mg/dL (8.6-10.3); Carbon Dioxide 25 mEq/L (23-29); Chloride 108 mEq/L (98-107); Glucose 106 mg/dL (70-105); Osmolality,Calculated 286 (280-300); Potassium 4.1 mEq/L (3.5-5.1); Sodium 137 mEq/L (136-145); eGFR For African Americans > 60 (> 60); eGFR For Non-African Americans > 60 (> 60)
[2021-08-03 02:37] LABS: INR 3.1; Prothrombin Time 34.8 Seconds (9.4-12.1)
[2021-08-03] MEDS: Levothyroxine 25 MCG TABLET PO SCH (06:21)
[2021-08-03] MEDS: metroNIDAZOLE 500 MG TABLET PO SCH ×3 (08:17→21:10)
[2021-08-03] MEDS: Lactobacillus 1 EACH CAP.SPRINK PO SCH ×2 (08:18→21:10)
[2021-08-03] MEDS: DilTIAZem CD (24hr) 120 MG CAP.ER.24H PO SCH (08:18)
[2021-08-03] MEDS: Ketorolac 30 MG/ML VIAL IVP PRN ×2 (11:05→21:13)
[2021-08-03] MEDS: levoFLOXacin 750 MG TABLET PO SCH (11:07)
[2021-08-03] MEDS: polyethylene glycoL 3350 17 GM POWD.PACK PO SCH (11:07)
[2021-08-03] MEDS: Aspirin Enteric Coated 81 MG Tablet PO SCH (17:25)
[2021-08-03] MEDS ORDERED: *HR* Warfarin 1 MG TABLET PO ONE (18:00)
[2021-08-03] MEDS: Latanoprost 2.5 ML BOTTLE BOTH EYES SCH (21:10)
[2021-08-04 01:23] LABS: INR 2.3; Prothrombin Time 25.6 Seconds (9.4-12.1)
[2021-08-04] MEDS: Ketorolac 30 MG/ML VIAL IVP PRN ×4 (04:31→22:33)
[2021-08-04] MEDS: Levothyroxine 25 MCG TABLET PO SCH (07:10)
[2021-08-04] MEDS: metroNIDAZOLE 500 MG TABLET PO SCH ×3 (09:26→19:40)
[2021-08-04] MEDS: DilTIAZem CD (24hr) 120 MG CAP.ER.24H PO SCH (09:26)
[2021-08-04] MEDS: polyethylene glycoL 3350 17 GM POWD.PACK PO SCH (09:27)
[2021-08-04] MEDS: Lactobacillus 1 EACH CAP.SPRINK PO SCH ×2 (09:27→19:40)
[2021-08-04] MEDS: levoFLOXacin 750 MG TABLET PO SCH (11:43)
[2021-08-04] MEDS ORDERED: Warfarin 0.5 MG, Warfarin 1 MG PO ONE (18:00)
[2021-08-04] MEDS: Aspirin Enteric Coated 81 MG Tablet PO SCH (18:24)
[2021-08-04] MEDS: Latanoprost 2.5 ML BOTTLE BOTH EYES SCH (19:40)
[2021-08-05] MEDS: Melatonin 3 MG TABLET PO PRN ×2 (02:47→20:48)
[2021-08-05] MEDS: Levothyroxine 25 MCG TABLET PO SCH (05:43)
[2021-08-05] MEDS: Ketorolac 30 MG/ML VIAL IVP PRN ×2 (05:45→12:14)
[2021-08-05] MEDS: polyethylene glycoL 3350 17 GM POWD.PACK PO SCH (07:55)
[2021-08-05] MEDS: DilTIAZem CD (24hr) 120 MG CAP.ER.24H PO SCH (07:55)
[2021-08-05] MEDS: metroNIDAZOLE 500 MG TABLET PO SCH ×3 (07:55→20:48)
[2021-08-05] MEDS: Lactobacillus 1 EACH CAP.SPRINK PO SCH ×2 (07:55→20:48)
[2021-08-05] MEDS: levoFLOXacin 750 MG TABLET PO SCH (12:14)
[2021-08-05 14:55] LABS: INR 1.8
[2021-08-05] MEDS ORDERED: Isovue-370 500 ML BOTTLE IVP ONE (15:11)
[2021-08-05] MEDS: Aspirin Enteric Coated 81 MG Tablet PO SCH (17:01)
[2021-08-05] MEDS: *HR* HYDROcodone/Acet 5/325 mg TABLET PO PRN ×2 (17:01→20:48)
[2021-08-05] MEDS ORDERED: *HR* Warfarin 2 MG TABLET PO ONE (18:00)
[2021-08-05] MEDS: Latanoprost 2.5 ML BOTTLE BOTH EYES SCH (20:49)
[2021-08-06 01:10] LABS: Hemoglobin 10.7 g/dL (11.5-15.4); Mean Corpuscular HGB Conc 31.5 g/dL (31.6-35.5); Mean Corpuscular Hemoglobin 32.1 pg (28.0-33.3); Mean Corpuscular Volume 102.1 fL (83.0-100.0); Mean Platelet Volume 9.6 fL (9.4-12.4); Platelet Count 261 K/mcL (140-400); Red Blood Count 3.33 M/mcL (3.82-4.97); Red Cell Distribution Width 13.8 % (11.5-14.5); White Blood Count 7.4 K/mcL (4.3-11.1)
[2021-08-06 01:15] LABS: INR 1.9; Prothrombin Time 21.4 Seconds (9.4-12.1)
[2021-08-06 01:26] LABS: BUN/Creatinine Ratio 27 (6-26); Blood Urea Nitrogen 25 mg/dL (8-23); Carbon Dioxide 25 mEq/L (23-29); Chloride 104 mEq/L (98-107); Glucose 108 mg/dL (70-105); Osmolality,Calculated 287 (280-300); Potassium 4.1 mEq/L (3.5-5.1); Sodium 136 mEq/L (136-145); eGFR For African Americans > 60 (> 60); eGFR For Non-African Americans 57 (> 60)
[2021-08-06] MEDS: Levothyroxine 25 MCG TABLET PO SCH (06:36)
[2021-08-06] MEDS: metroNIDAZOLE 500 MG TABLET PO SCH (08:28)
[2021-08-06] MEDS: *HR* HYDROcodone/Acet 5/325 mg TABLET PO PRN ×3 (08:28→17:59)
[2021-08-06] MEDS: polyethylene glycoL 3350 17 GM POWD.PACK PO SCH (08:28)
[2021-08-06] MEDS: DilTIAZem CD (24hr) 120 MG CAP.ER.24H PO SCH (08:28)
[2021-08-06] MEDS: Lactobacillus 1 EACH CAP.SPRINK PO SCH ×2 (08:28→20:49)
[2021-08-06] MEDS: Aspirin Enteric Coated 81 MG Tablet PO SCH (17:12)
[2021-08-06] MEDS ORDERED: *HR* Warfarin 1 MG TABLET PO ONE (18:00)
[2021-08-06] MEDS: Latanoprost 2.5 ML BOTTLE BOTH EYES SCH (20:49)
[2021-08-07 04:01] LABS: INR 1.6; Prothrombin Time 18.3 Seconds (9.4-12.1)
[2021-08-07] MEDS: Levothyroxine 25 MCG TABLET PO SCH (05:12)
[2021-08-07] MEDS: polyethylene glycoL 3350 17 GM POWD.PACK PO SCH (07:57)
[2021-08-07] MEDS: Lactobacillus 1 EACH CAP.SPRINK PO SCH ×2 (07:57→20:55)
[2021-08-07] MEDS: DilTIAZem CD (24hr) 120 MG CAP.ER.24H PO SCH (07:58)
[2021-08-07] MEDS: *HR* HYDROcodone/Acet 5/325 mg TABLET PO PRN ×3 (08:03→20:55)
[2021-08-07] MEDS: Aspirin Enteric Coated 81 MG Tablet PO SCH (17:26)
[2021-08-07] MEDS ORDERED: *HR* Warfarin 3 MG TABLET PO ONE (18:00)
[2021-08-07] MEDS: Latanoprost 2.5 ML BOTTLE BOTH EYES SCH (20:57)
[2021-08-08] MEDS: Levothyroxine 25 MCG TABLET PO SCH (06:01)
[2021-08-08] MEDS: Lactobacillus 1 EACH CAP.SPRINK PO SCH (08:32)
[2021-08-08] MEDS: DilTIAZem CD (24hr) 120 MG CAP.ER.24H PO SCH (08:32)
[2021-08-08] MEDS: polyethylene glycoL 3350 17 GM POWD.PACK PO SCH (08:32)
[2021-08-08 09:17] LABS: INR 1.5; Prothrombin Time 16.9 Seconds (9.4-12.1)
[2021-08-08] MEDS: *HR* HYDROcodone/Acet 5/325 mg TABLET PO PRN ×2 (10:21→17:54)
[2021-08-08 15:08] VITALS: TEMP 98.1
[2021-08-08] MEDS: Aspirin Enteric Coated 81 MG Tablet PO SCH (16:46)
[2021-08-08 17:16] LABS: Adenovirus Not Detected (Not Detect); Bordetella Pertussis Not Detected (Not Detect); Chlamydophila pneumoniae Not Detected (Not Detect); Coronavirus 229E Not Detected (Not Detect); Coronavirus HKU1 Not Detected (Not Detect); Coronavirus NL63 Not Detected (Not Detect); Coronavirus OC43 Not Detected (Not Detect); Human Metapneumovirus Not Detected (Not Detect); Human Rhinovirus/Enterovirus Not Detected (Not Detect); Influenza A Subtype 2009 H1 Not Detected (Not Detect); Influenza B Not Detected (Not Detect); Mycoplasma pneumoniae Not Detected (Not Detect); Parainfluenza Virus 1 Not Detected (Not Detect); Parainfluenza Virus 2 Not Detected (Not Detect); Parainfluenza Virus 3 Not Detected (Not Detect); Parainfluenza Virus 4 Not Detected (Not Detect); Respiratory Syncytial Virus Not Detected (Not Detect); SARS-CoV-2 Not Detected (Not Detect)
[2021-08-08] MEDS ORDERED: *HR* Warfarin 3 MG TABLET PO ONE (18:00)
[2021-08-08 19:10] VITALS: BP 115/68; PULSE 111; O2SAT 97
== END 2021-08-08 19:34 | DRG 872 ==
LOC: 2ANU 19:56 → EMEROOARM 19:56 → SUATTDRO 07-31 00:41 → 2ANU 07-31 03:45
PROVIDERS: ADMIT Internal Medicine; ATTEND Internal Medicine

== ENCOUNTER 2021-09-08 05:34 | Observation (INO) ==
[2021-09-08] MEDS ORDERED: Aspirin 325 MG TABLET PO ONE (05:59)
[2021-09-08] MEDS ORDERED: *HR* HYDROcodone/Acet 5/325 mg TABLET PO ONE (05:59)
[2021-09-08] MEDS ORDERED: Isovue-370 500 ML BOTTLE IVP ONE (06:00)
[2021-09-08 06:10] LABS: Basophils % 0.4 %; Eosinophils # 0.3 K/mcL (0.0-0.6); Eosinophils % 2.9 %; Hematocrit 34.6 % (35.3-44.9); Hemoglobin 11.2 g/dL (11.5-15.4); Immature Granulocytes % 0.3 % (0-4); Lymphocytes # 0.8 K/mcL (0.6-4.6); Lymphocytes % 7.9 %; Mean Corpuscular HGB Conc 32.4 g/dL (31.6-35.5); Mean Corpuscular Hemoglobin 32.9 pg (28.0-33.3); Mean Corpuscular Volume 101.8 fL (83.0-100.0); Monocytes # 0.7 K/mcL (0.0-1.3); Monocytes % 7.1 %; Neutrophils # 8.3 K/mcL (1.6-8.9); Platelet Count 154 K/mcL (140-400); Red Cell Distribution Width 14.1 % (11.5-14.5); Segmented Neutrophils % 81.4 %; White Blood Count 10.1 K/mcL (4.3-11.1)
[2021-09-08 06:31] LABS: Alanine Aminotransferase 9 Units/L (7-52); Albumin 3.9 g/dL (3.5-5.7); Albumin/Globulin Ratio 1.4 (1.1-2.2); Alkaline Phosphatase 77 Units/L (34-104); Aspartate Amino Transferase 17 Units/L (13-39); BUN/Creatinine Ratio 16 (6-26); Bilirubin,Direct 0.2 mg/dL (0.0-0.2); Bilirubin,Indirect 0.8 mg/dL (0.0-1.0); Blood Urea Nitrogen 15 mg/dL (8-23); Calcium 8.9 mg/dL (8.6-10.3); Carbon Dioxide 29 mEq/L (23-29); Chloride 103 mEq/L (98-107); Globulin 2.7 g/dL (2.4-3.5); Glucose 135 mg/dL (70-105); Lipase 19 Units/L (11-82); Magnesium 2.1 mg/dL (1.6-2.6); Osmolality,Calculated 289 (280-300); Potassium 3.9 mEq/L (3.5-5.1); Sodium 138 mEq/L (136-145); Total Protein 6.6 g/dL (6.4-8.9); Troponin I 0.04 ng/mL (< 0.04); eGFR For African Americans > 60 (> 60); eGFR For Non-African Americans 58 (> 60)
[2021-09-08 06:50] LABS: INR 2.3
[2021-09-08] MEDS ORDERED: Naloxone 0.4 MG/ML INJ IVP PRN (07:21)
[2021-09-08] MEDS ORDERED: Ondansetron 4 MG/2 ML VIAL IVP PRN (07:21)
[2021-09-08] MEDS ORDERED: Perflutren Lipid Microsphere 1.3 ML in 0.9 % Sodium Chloride 8.7 ML IVP PRN ×2 (07:23→07:59)
[2021-09-08 09:42] LABS: Bilirubin,Urine Negative (Negative); Blood,Urine Negative (Negative); Clarity,Urine Clear (Clear); Color,Urine Colorless (Yellow); Glucose,Urine (UA) Normal (Normal); Ketones,Urine Negative (Negative); Leukocyte Esterase,Urine Negative (Negative); Nitrite,Urine Negative (Negative); PH,Urine 7.5 pH Units (5.0-8.0); Protein,Urine Negative (Neg-Trace); Specific Gravity,Urine 1.026 (1.010-1.025); Urobilinogen,Urine Normal (Normal)
[2021-09-08] MEDS: Levothyroxine 25 MCG TABLET PO SCH (09:54)
[2021-09-08] MEDS: DilTIAZem CD (24hr) 120 MG CAP.ER.24H PO SCH (09:54)
[2021-09-08] MEDS ORDERED: *HR* Warfarin 4 MG TABLET PO ONE ×2 (18:00)
[2021-09-08] MEDS ORDERED: Warfarin perPT PO PRN (18:00)
[2021-09-08] MEDS ORDERED: Aspirin Enteric Coated 81 MG Tablet PO SCH (18:00)
[2021-09-08] MEDS ORDERED: Latanoprost 2.5 ML BOTTLE BOTH EYES SCH (21:00)
[2021-09-08] MEDS: Ranolazine 500 MG TAB.ER.12H PO SCH (21:19)
[2021-09-09] MEDS: hydrOXYzine pamoate 25 MG CAPSULE PO PRN ×2 (02:22→15:27)
[2021-09-09] MEDS: Levothyroxine 25 MCG TABLET PO SCH (04:30)
[2021-09-09 04:52] LABS: Basophils # 0.1 K/mcL (0.0-0.2); Basophils % 0.7 %; Eosinophils # 0.7 K/mcL (0.0-0.6); Eosinophils % 7.6 %; Hematocrit 33.8 % (35.3-44.9); Immature Granulocytes % 0.3 % (0-4); Lymphocytes % 11.6 %; Mean Corpuscular HGB Conc 32.5 g/dL (31.6-35.5); Mean Corpuscular Hemoglobin 33.2 pg (28.0-33.3); Mean Corpuscular Volume 102.1 fL (83.0-100.0); Mean Platelet Volume 10.4 fL (9.4-12.4); Monocytes # 0.7 K/mcL (0.0-1.3); Monocytes % 8.1 %; Neutrophils # 6.3 K/mcL (1.6-8.9); Platelet Count 172 K/mcL (140-400); Red Blood Count 3.31 M/mcL (3.82-4.97); Red Cell Distribution Width 14.1 % (11.5-14.5); Segmented Neutrophils % 71.7 %; White Blood Count 8.8 K/mcL (4.3-11.1)
[2021-09-09 04:57] LABS: INR 2.1; Prothrombin Time 23.1 Seconds (9.4-12.1)
[2021-09-09 05:09] LABS: BUN/Creatinine Ratio 16 (6-26); Blood Urea Nitrogen 15 mg/dL (8-23); Calcium 8.3 mg/dL (8.6-10.3); Carbon Dioxide 24 mEq/L (23-29); Chloride 106 mEq/L (98-107); Glucose 112 mg/dL (70-105); Magnesium 2.1 mg/dL (1.6-2.6); Osmolality,Calculated 288 (280-300); Phosphorous 2.7 mg/dL (2.7-4.5); Potassium 3.6 mEq/L (3.5-5.1); Sodium 138 mEq/L (136-145); eGFR For African Americans > 60 (> 60); eGFR For Non-African Americans 57 (> 60)
[2021-09-09] MEDS: Ranolazine 500 MG TAB.ER.12H PO SCH (08:16)
[2021-09-09] MEDS: DilTIAZem CD (24hr) 120 MG CAP.ER.24H PO SCH (08:17)
[2021-09-09] MEDS ORDERED: Valsartan 80 MG TABLET PO SCH (09:00)
[2021-09-09 14:30] VITALS: BP 156/76; PULSE 62; TEMP 97.4; O2SAT 95
[2021-09-09] MEDS ORDERED: *HR* Warfarin 4 MG TABLET PO ONE (18:00)
== END 2021-09-09 15:59 | disposition home or self-care (01) ==
LOC: EMEROOARM 05:34 → 3BNU 05:34
PROVIDERS: ADMIT Nurse Practitioner; ATTEND Student in an Organized Health Care Education/Training Program

== ENCOUNTER 2022-02-21 11:37 | Inpatient (IN) ==
[2022-02-21 13:17] LABS: Basophils # 0.1 K/mcL (0.0-0.2); Basophils % 0.9 %; Eosinophils # 0.2 K/mcL (0.0-0.6); Eosinophils % 3.1 %; Hematocrit 42.7 % (35.3-44.9); Hemoglobin 13.4 g/dL (11.5-15.4); Immature Granulocytes % 0.3 % (0-4); Lymphocytes # 1.1 K/mcL (0.6-4.6); Lymphocytes % 16.6 %; Mean Corpuscular HGB Conc 31.4 g/dL (31.6-35.5); Mean Corpuscular Hemoglobin 32.5 pg (28.0-33.3); Mean Corpuscular Volume 103.6 fL (83.0-100.0); Mean Platelet Volume 10.9 fL (9.4-12.4); Monocytes # 0.6 K/mcL (0.0-1.3); Monocytes % 9.3 %; Neutrophils # 4.7 K/mcL (1.6-8.9); Platelet Count 195 K/mcL (140-400); Red Blood Count 4.12 M/mcL (3.82-4.97); Red Cell Distribution Width 13.9 % (11.5-14.5); Segmented Neutrophils % 69.8 %; White Blood Count 6.8 K/mcL (4.3-11.1)
[2022-02-21 13:37] LABS: INR 1.5; Prothrombin Time 17.2 Seconds (9.4-12.1)
[2022-02-21 13:42] LABS: Alanine Aminotransferase 11 Units/L (7-52); Albumin 3.9 g/dL (3.5-5.7); Albumin/Globulin Ratio 1.2 (1.1-2.2); Alkaline Phosphatase 61 Units/L (34-104); Aspartate Amino Transferase 17 Units/L (13-39); BUN/Creatinine Ratio 22 (6-26); Bilirubin,Direct 0.1 mg/dL (0.0-0.2); Bilirubin,Indirect 0.4 mg/dL (0.0-1.0); Bilirubin,Total 0.5 mg/dL (0.3-1.0); Blood Urea Nitrogen 27 mg/dL (8-23); Calcium 9.2 mg/dL (8.6-10.3); Carbon Dioxide 29 mEq/L (23-29); Chloride 108 mEq/L (98-107); Ethanol < 10 mg/dL (Less than 10); Globulin 3.3 g/dL (2.4-3.5); Glucose 92 mg/dL (70-105); Osmolality,Calculated 301 (280-300); Potassium 4.2 mEq/L (3.5-5.1); Sodium 143 mEq/L (136-145); Total Protein 7.2 g/dL (6.4-8.9); Troponin I 0.03 ng/mL (< 0.04)
[2022-02-21 16:02] LABS: Bacteria,Urine Few per hpf (None-Few); Bilirubin,Urine Negative (Negative); Blood,Urine Negative (Negative); Clarity,Urine Clear (Clear); Color,Urine Yellow (Yellow); Glucose,Urine (UA) Normal (Normal); Granular Casts,Urine Few per lpf (None Seen); Hyaline Casts,Urine Few per lpf (None Seen); Ketones,Urine Negative (Negative); Leukocyte Esterase,Urine Moderate (Negative); Mucus,Urine Few per lpf (None-Few); Nitrite,Urine Negative (Negative); PH,Urine 6.5 pH Units (5.0-8.0); Protein,Urine 30 mg/dL (Neg-Trace); RBC,Urine 0-3 per hpf (0-3); Specific Gravity,Urine 1.026 (1.010-1.025); Squamous Epithelial Cell,Urine Moderate per hpf (None-Few); Urobilinogen,Urine Normal (Normal)
[2022-02-21] MEDS ORDERED: Melatonin 3 MG TABLET PO PRN (16:07)
[2022-02-21] MEDS ORDERED: Acetaminophen 325 MG TABLET PO PRN (16:07)
[2022-02-21] MEDS ORDERED: Naloxone 0.4 MG/ML INJ IVP PRN (16:07)
[2022-02-21 16:08] LABS: Amphetamine Screen,Urine Negative ng/mL (Cutoff=1000); Barbiturate Screen,Urine Negative ng/mL (Cutoff=200); Benzodiazepines Screen,Urine Negative ng/mL (Cutoff=200); Cannabinoid Screen,Urine Negative ng/mL (Cutoff = 50); Cocaine Screen,Urine Negative ng/mL (Cutoff= 300); Opiate Screen,Urine Positive ng/mL (Cutoff=300); Phencyclidine Screen,Urine Negative ng/mL (Cutoff=25)
[2022-02-21 16:46] LABS: Thyroid Stimulating Hormone 2.287 mcIU/mL (0.340-5.600)
[2022-02-21] MEDS: *HR* HYDROcodone/Acet 5/325 mg TABLET PO PRN ×2 (16:59→23:58)
[2022-02-21 17:00] LABS: Folate > 22.3 ng/mL (3.0-16.0); Vitamin B12 547 pg/mL (250-1100)
[2022-02-21] MEDS: 0.9 % Sodium Chloride 1,000 ML IVC SCH (17:00)
[2022-02-21] MEDS: Aspirin 81 MG TAB.CHEW PO SCH (17:00)
[2022-02-21] MEDS: cefTRIAXone 1,000 MG in 0.9 % Sodium Chloride 10 ML IVP SCH (17:01)
[2022-02-21 19:33] LABS: Influenza A PCR Negative (Negative); Influenza B PCR Negative (Negative); Resp. Syncytial Virus PCR Negative (Negative); SARS-CoV-2 by PCR (In House) Negative (Negative)
[2022-02-22 03:03] LABS: Calcium 8.5 mg/dL (8.6-10.3); Potassium 4.1 mEq/L (3.5-5.1); Troponin I 0.03 ng/mL (< 0.04)
[2022-02-22] MEDS: *HR* HYDROcodone/Acet 5/325 mg TABLET PO PRN ×3 (05:55→20:53)
[2022-02-22] MEDS: Levothyroxine 25 MCG TABLET PO SCH (05:55)
[2022-02-22] MEDS ORDERED: Lactobacillus 1 EACH CAP.SPRINK PO SCH (09:00)
[2022-02-22] MEDS ORDERED: DilTIAZem CD (24hr) 120 MG CAP.ER.24H PO SCH (09:00)
[2022-02-22] MEDS ORDERED: NON-FORMULARY MEDICATION 1 EACH EACH (Biotin 1,000 MCG Tab.Chew) PO SCH (09:00)
[2022-02-22] MEDS: 0.9 % Sodium Chloride 1,000 ML IVC SCH (09:54)
[2022-02-22] MEDS: Valsartan 80 MG TABLET PO SCH (09:55)
[2022-02-22] MEDS: Apixaban 5 MG TABLET PO SCH ×2 (12:32→20:53)
[2022-02-22] MEDS ORDERED: Metoprolol XL (24 HR) Succ 25 MG TAB.ER.24H PO ONE (13:40)
[2022-02-22] MEDS: Aspirin 81 MG TAB.CHEW PO SCH (16:37)
[2022-02-22] MEDS: cefTRIAXone 1,000 MG in 0.9 % Sodium Chloride 10 ML IVP SCH (16:37)
[2022-02-22] MEDS: Metoprolol XL (24 HR) Succ 50 MG TAB.ER.24H PO SCH (20:53)
[2022-02-22] MEDS ORDERED: Mirtazapine 15 MG TABLET PO SCH (21:00)
[2022-02-23] MEDS: Levothyroxine 25 MCG TABLET PO SCH (06:39)
[2022-02-23 06:49] VITALS: BP 154/74; PULSE 62; TEMP 97.6; O2SAT 97
[2022-02-23] MEDS ORDERED: Multivit/Ca/Min/Fe/FA 1 TAB TABLET PO SCH (09:00)
[2022-02-23] MEDS: *HR* HYDROcodone/Acet 5/325 mg TABLET PO PRN (10:19)
[2022-02-23] MEDS: Valsartan 80 MG TABLET PO SCH (10:41)
[2022-02-23] MEDS: Apixaban 5 MG TABLET PO SCH (10:47)
[2022-02-23] MEDS: Metoprolol XL (24 HR) Succ 50 MG TAB.ER.24H PO SCH (10:47)
[2022-02-25] MEDS ORDERED: Ergocalciferol (VIT D2) 50,000 UNIT (1.25MG) CAP PO SCH (09:00)
== END 2022-02-23 11:34 | disposition home health service (06) | DRG 948 ==
LOC: EMEROOARM 11:37 → 3BNU 11:37
PROVIDERS: ADMIT Student in an Organized Health Care Education/Training Program; ATTEND Student in an Organized Health Care Education/Training Program

== ENCOUNTER 2022-03-26 13:18 | Inpatient (IN) ==
[2022-03-26] MEDS ORDERED: Aspirin 81 MG TAB.CHEW PO ONE (13:45)
[2022-03-26 14:04] LABS: Basophils # 0.1 K/mcL (0.0-0.2); Basophils % 0.8 %; Eosinophils # 0.1 K/mcL (0.0-0.6); Hematocrit 37.7 % (35.3-44.9); Hemoglobin 11.7 g/dL (11.5-15.4); Immature Granulocytes % 0.3 % (0-4); Lymphocytes # 0.7 K/mcL (0.6-4.6); Lymphocytes % 11.1 %; Mean Platelet Volume 10.3 fL (9.4-12.4); Monocytes # 0.4 K/mcL (0.0-1.3); Monocytes % 7.2 %; Neutrophils # 4.9 K/mcL (1.6-8.9); Platelet Count 206 K/mcL (140-400); Red Blood Count 3.66 M/mcL (3.82-4.97); Segmented Neutrophils % 79.6 %; White Blood Count 6.1 K/mcL (4.3-11.1)
[2022-03-26 14:10] LABS: INR 2.3
[2022-03-26 14:26] LABS: Troponin I 0.04 ng/mL (< 0.04)
[2022-03-26 14:42] LABS: Potassium 4.1 mEq/L (3.5-5.1)
[2022-03-26] MEDS ORDERED: Ondansetron 4 MG/2 ML VIAL IVP PRN (14:47)
[2022-03-26] MEDS ORDERED: Naloxone 0.4 MG/ML INJ IVP PRN (14:47)
[2022-03-26] MEDS ORDERED: Nitroglycerin 0.4 MG TAB.SUBL SL PRN (14:51)
[2022-03-26] MEDS: Metoprolol XL (24 HR) Succ 50 MG TAB.ER.24H PO SCH (19:52)
[2022-03-26] MEDS: *HR* HYDROcodone/Acet 5/325 mg TABLET PO PRN (19:52)
[2022-03-26] MEDS: Latanoprost 2.5 ML BOTTLE BOTH EYES SCH (20:49)
[2022-03-27 04:08] LABS: Basophils # 0.1 K/mcL (0.0-0.2); Basophils % 0.7 %; Eosinophils # 0.1 K/mcL (0.0-0.6); Eosinophils % 1.5 %; Hematocrit 34.5 % (35.3-44.9); Hemoglobin 10.8 g/dL (11.5-15.4); Immature Granulocytes % 0.1 % (0-4); Lymphocytes # 1.3 K/mcL (0.6-4.6); Lymphocytes % 18.7 %; Mean Corpuscular HGB Conc 31.3 g/dL (31.6-35.5); Mean Corpuscular Hemoglobin 31.8 pg (28.0-33.3); Mean Corpuscular Volume 101.5 fL (83.0-100.0); Monocytes # 0.6 K/mcL (0.0-1.3); Monocytes % 7.7 %; Neutrophils # 5.1 K/mcL (1.6-8.9); Platelet Count 184 K/mcL (140-400); Segmented Neutrophils % 71.3 %; White Blood Count 7.2 K/mcL (4.3-11.1)
[2022-03-27 04:15] LABS: INR 1.8; Prothrombin Time 20.5 Seconds (9.4-12.1)
[2022-03-27 04:39] LABS: Thyroid Stimulating Hormone 2.179 mcIU/mL (0.340-5.600); Troponin I 0.04 ng/mL (< 0.04)
[2022-03-27 04:42] LABS: Calcium 8.5 mg/dL (8.6-10.3); Magnesium 2.2 mg/dL (1.6-2.6); Potassium 4.3 mEq/L (3.5-5.1)
[2022-03-27] MEDS: polyethylene glycoL 3350 17 GM POWD.PACK PO SCH (09:06)
[2022-03-27] MEDS: Metoprolol XL (24 HR) Succ 50 MG TAB.ER.24H PO SCH ×2 (09:06→20:13)
[2022-03-27] MEDS: Levothyroxine 25 MCG TABLET PO SCH (09:06)
[2022-03-27] MEDS ORDERED: MOM Conc 10 ML UD.LIQ PO PRN (09:36)
[2022-03-27] MEDS: Acetaminophen 325 MG TABLET PO PRN ×2 (11:56→17:40)
[2022-03-27] MEDS ORDERED: 0.9 % Sodium Chloride 1,000 ML IVC SCH (15:00)
[2022-03-27] MEDS ORDERED: Aspirin 81 MG TAB.CHEW PO SCH (18:00)
[2022-03-27] MEDS: *HR* HYDROcodone/Acet 5/325 mg TABLET PO PRN (20:13)
[2022-03-27] MEDS: Latanoprost 2.5 ML BOTTLE BOTH EYES SCH (20:15)
[2022-03-28] MEDS: Acetaminophen 325 MG TABLET PO PRN (02:25)
[2022-03-28 02:53] LABS: Hematocrit 35.6 % (35.3-44.9); Hemoglobin 11.2 g/dL (11.5-15.4); Mean Corpuscular HGB Conc 31.5 g/dL (31.6-35.5); Mean Corpuscular Hemoglobin 31.5 pg (28.0-33.3); Mean Corpuscular Volume 100.3 fL (83.0-100.0); Mean Platelet Volume 10.5 fL (9.4-12.4); Platelet Count 174 K/mcL (140-400); Red Blood Count 3.55 M/mcL (3.82-4.97); Red Cell Distribution Width 12.9 % (11.5-14.5); White Blood Count 7.9 K/mcL (4.3-11.1)
[2022-03-28 03:10] LABS: Calcium 8.4 mg/dL (8.6-10.3); Magnesium 2.5 mg/dL (1.6-2.6); Potassium 3.9 mEq/L (3.5-5.1)
[2022-03-28 08:04] VITALS: BP 127/67; PULSE 61; TEMP 97.9; O2SAT 96
[2022-03-28] MEDS: *HR* HYDROcodone/Acet 5/325 mg TABLET PO PRN (08:55)
[2022-03-28] MEDS: Levothyroxine 25 MCG TABLET PO SCH (08:57)
[2022-03-28] MEDS: Metoprolol XL (24 HR) Succ 50 MG TAB.ER.24H PO SCH (08:57)
[2022-03-28] MEDS: polyethylene glycoL 3350 17 GM POWD.PACK PO SCH (10:56)
== END 2022-03-28 12:15 | disposition home or self-care (01) | DRG 281 ==
LOC: 3BNU 13:18 → EMEROOARM 13:18 → 3BNU 15:32
PROVIDERS: ADMIT Internal Medicine; ATTEND Internal Medicine